=== PATIENT | male | born 1945 | race African-American/Black ===

== ENCOUNTER 2022-12-21 09:31 | Inpatient (IN) | payer OTHER, MEDICAID ==
[2022-12-21] VITALS (45 sets, daily range): BP systolic 93–128; BP diastolic 53–79; PULSE 72–120; RESP 11–42; TEMP 98.1–99.1; O2SAT 86–100
[~2022-12-21] VITALS: Ht 172.7 cm; Wt 97.1 kg
[~2022-12-21 09:31] MED LIST: AMLO1TAB23 PO; CALC0.25 PO; CALC500C65 PO; CEPH-510 PO; CLON0.2T PO; ERGO1CAP23 PO; GUAIFENESIN; LANC-347 XX; LEVO175C2 PO; LISI40TA; METO-289 PO; PHEN100C PO; POTA-211 PO; SIMV20TA20; TRIA25CA PO
[2022-12-21] MEDS ORDERED: ALBUTEROL SULF 2.5 MG/0.5ML(0.5%) NEB SOLN NEB ONE (10:00)
[2022-12-21 10:39] LABS: Basophils # (auto) 0 10 ^3/uL (0-0.2); Basophils % (auto) 0.2 % (0.0-2.0); Eosinophils # (auto) 0 10 ^3/uL (0-0.8); Hemoglobin 12.2 g/dL (13.5-17.5); Lymphocytes # (auto) 0.4 10 ^3/uL (0.4-5.4); Lymphocytes % (auto) 3.1 % (10.0-50.0); Mean Corpuscular Hemoglobin 31.8 pg (28.0-32.0); Mean Corpuscular Hgb Conc. 32.9 g/dL (32.0-36.0); Mean Corpuscular Volume 96.7 fL (80.0-100.0); Monocytes # (auto) 0.4 10 ^3/uL (0-1.3); Monocytes % (auto) 3.2 % (0.0-12.0); Neutrophils # (auto) 11.3 10 ^3/uL (1.6-8.6); Neutrophils % (auto) 93.5 % (37.0-80.0); Red Blood Cells 3.83 10^6/uL (4.5-5.90); Red Cell Distribution Width 13.7 % (11.8-14.3)
[2022-12-21] MEDS ORDERED: MIDAZOLAM DRIP 50 mg/50mL 50 ML IV ONE (10:40)
[2022-12-21] MEDS ORDERED: SUCCINYLCHOLINE CHLORIDE 20 MG/ML 10ML VIAL IV ONE (10:45)
[2022-12-21] MEDS: MIDAZOLAM DRIP 50 mg/50mL 50 ML IV SCH ×4 (10:45→23:47)
[2022-12-21] MEDS ORDERED: MIDAZOLAM DRIP 50 mg/50mL 50 ML IV SCH (10:45)
[2022-12-21] MEDS ORDERED: ETOMIDATE (2MG/ML) 20ML VIAL IV ONE (10:45)
[2022-12-21 10:50] LABS: Albumin 2.8 g/dL (3.4-5.0); Calcium 6.3 mg/dL (8.5-10.1)
[2022-12-21 10:54] LABS: BUN/Creatinine Ratio 22.1 (10.0-20.0); Bilirubin, Total 0.7 mg/dL (0.2-1.0); Total Protein 7.8 g/dL (6.4-8.2)
[2022-12-21] MEDS: NOREPINEPHRINE 8 MG/250ML KIT 250 ML IV SCH (11:45)
[2022-12-21] MEDS ORDERED: SODIUM CHLORIDE 0.9% 2,100 ML IV ONE (11:45)
[2022-12-21] MEDS ORDERED: DexAMETHasone INJECTION 10 MG in SODIUM CHL 3% 500 ML IV SCH (12:00)
[2022-12-21 12:08] LABS: Urine Amorphous Crystal FEW /hpf (None Seen); Urine Bacteria NONE SEEN /hpf (None Seen); Urine Blood 1+ /uL (Negative); Urine WBC 3 /hpf (0 - 3)
[2022-12-21 12:20] LABS: INR 1.14 (0.9-1.15); Partial Thromboplastin Time 31.3 SEC (24.5-34.5)
[2022-12-21] MEDS ORDERED: VANCOMYCIN PER PHARMACY 0 MG IV SCH (12:45)
[2022-12-21] MEDS ORDERED: DexAMETHasone SOD PHOS 10MG/1ML VIAL INJ IV ONE (12:45)
[2022-12-21] MEDS ORDERED: VANCOMYCIN 1GM/250ML 250 ML IV ONE (12:45)
[2022-12-21] MEDS ORDERED: NITROGLYCERIN 0.4 MG SL TAB SL PRN (13:30)
[2022-12-21] MEDS ORDERED: MORPHINE SULFATE INJ 2 MG/ml SYRG IV PRN (13:30)
[2022-12-21] MEDS ORDERED: ACETAMINOPHEN 650 MG RECT SUPP PR PRN (14:00)
[2022-12-21] MEDS ORDERED: DEXTROSE (50%) 50ML SYRG IV PRN (14:00)
[2022-12-21] MEDS ORDERED: ACETAMINOPHEN 650 MG RECT SUPP PR ONE ×2 (14:00→14:15)
[2022-12-21] MEDS ORDERED: PIPERACILLIN-TAZOB 3.375GM 100 ML IV SCH (14:00)
[2022-12-21] MEDS ORDERED: POTASSIUM EFFERVESENT TAB 25 MEQ GT ONE (14:00)
[2022-12-21] MEDS: ACCU-CHEK COMFORT CURVE STRIP VI SCH ×2 (16:45→23:54)
[2022-12-21] MEDS: InsuLIN REG 1unit/0.01ml Soln (100units/ml) SC SCH ×2 (16:45→23:45)
[2022-12-21 16:56] LABS: Magnesium 2.3 mg/dL (1.6-2.6)
[2022-12-21] MEDS: IPRATROPIUM BROM 0.5 MG/2.5ML INH SOL NEB SCH (18:12)
[2022-12-21] MEDS: ALBUTEROL SULF 2.5 MG/0.5ML(0.5%) NEB SOLN NEB SCH (18:12)
[2022-12-21] MEDS ORDERED: LIDOCAINE 1% (LOCAL ANESTH.) PF 5ml SDV ID ONE (18:30)
[2022-12-21] MEDS ORDERED: SPIR25TA8 PO (18:56)
[2022-12-21] MEDS ORDERED: KEP500T PO (18:56)
[2022-12-21] MEDS ORDERED: HYDR-4296 PO (18:56)
[2022-12-21] MEDS ORDERED: NIFE1TAB30 PO (18:56)
[2022-12-21] MEDS ORDERED: ASPI-543 PO (18:56)
[2022-12-21] MEDS ORDERED: VANCOMYCIN 750mg/250ml 250 ML IV ONE ×2 (19:00→20:00)
[2022-12-21] MEDS: PIPERACILLIN-TAZOB 3.375GM 100 ML IV SCH (21:36)
[2022-12-21] MEDS: ATORVASTATIN 20 MG TAB NG SCH (21:36)
[2022-12-21] MEDS: SODIUM CHLOR 0.9% PF (SALINE LOCK) 10ML VIAL/SYR IV SCH (21:37)
[2022-12-21] MEDS ORDERED: VANCOMYCIN 1GM/250ML 250 ML IV SCH (22:00)
[2022-12-21] MEDS ORDERED: cloNIDine HCL 0.1 MG TAB PO SCH (22:00)
[2022-12-21] MEDS ORDERED: METOPROLOL SUCCINATE XL 50 MG TAB PO SCH (22:00)
[2022-12-21] MEDS ORDERED: PHENYTOIN SODIUM 100 MG CAP PO SCH (22:00)
[2022-12-21] MEDS ORDERED: levETIRAcetam 500 MG/5ML INJ IV ONE (23:29)
[2022-12-22] VITALS (108 sets, daily range): BP systolic 84–154; BP diastolic 50–90; PULSE 75–107; RESP 11–22; TEMP 97.3–99.7; O2SAT 95–100
[2022-12-22] MEDS: IPRATROPIUM BROM 0.5 MG/2.5ML INH SOL NEB SCH ×4 (00:04→18:19)
[2022-12-22] MEDS: ALBUTEROL SULF 2.5 MG/0.5ML(0.5%) NEB SOLN NEB SCH ×4 (00:04→18:19)
[2022-12-22] MEDS: MIDAZOLAM DRIP 50 mg/50mL 50 ML IV SCH ×5 (03:21→23:36)
[2022-12-22 04:37] LABS: Basophils # (auto) 0 10 ^3/uL (0-0.2); Basophils % (auto) 0.3 % (0.0-2.0); Eosinophils # (auto) 0.2 10 ^3/uL (0-0.8); Eosinophils % (auto) 1.2 % (0.0-7.0); Hematocrit 30.7 % (41.0-53.0); Hemoglobin 10.1 g/dL (13.5-17.5); Lymphocytes # (auto) 1.2 10 ^3/uL (0.4-5.4); Lymphocytes % (auto) 9.8 % (10.0-50.0); Mean Corpuscular Hgb Conc. 33.1 g/dL (32.0-36.0); Mean Corpuscular Volume 96.8 fL (80.0-100.0); Monocytes # (auto) 1.1 10 ^3/uL (0-1.3); Monocytes % (auto) 8.7 % (0.0-12.0); Neutrophils # (auto) 10.1 10 ^3/uL (1.6-8.6); Red Blood Cells 3.17 10^6/uL (4.5-5.90); Red Cell Distribution Width 13.6 % (11.8-14.3); White Blood Cell 12.6 10^3/uL (4.4-10.8)
[2022-12-22 05:03] LABS: Albumin 2.3 g/dL (3.4-5.0)
[2022-12-22 05:09] LABS: BUN/Creatinine Ratio 23.6 (10.0-20.0); Bilirubin, Total 1.2 mg/dL (0.2-1.0); Total Protein 6.1 g/dL (6.4-8.2)
[2022-12-22 05:18] LABS: Calcium 5.7 mg/dL (8.5-10.1); Potassium 2.4 mmol/L (3.5-5.1)
[2022-12-22] MEDS: ACCU-CHEK COMFORT CURVE STRIP VI SCH ×4 (05:31→23:37)
[2022-12-22] MEDS: PIPERACILLIN-TAZOB 3.375GM 100 ML IV SCH (05:31)
[2022-12-22] MEDS: InsuLIN REG 1unit/0.01ml Soln (100units/ml) SC SCH ×4 (05:35→23:37)
[2022-12-22] MEDS: POTASSIUM CHL 20MEQ/100ML 100 ML IV SCH ×3 (06:30→10:38)
[2022-12-22] MEDS: LEVOTHYROXINE SODIUM 50 MCG TAB PO SCH (06:30)
[2022-12-22] MEDS: CALCIUM GLUC 1,000mg/50ml-NS 50 ML IV SCH ×2 (06:30→06:59)
[2022-12-22] MEDS: PANTOPRAZOLE 40 MG/10 ML VIAL INJ IV SCH (09:52)
[2022-12-22] MEDS: ENOXAPARIN SOD 40 MG/0.4 ML SYRINGE SC SCH (09:52)
[2022-12-22] MEDS: ASPirin 81 mg TAB PO SCH (09:53)
[2022-12-22] MEDS: SODIUM CHLOR 0.9% PF (SALINE LOCK) 10ML VIAL/SYR IV SCH ×2 (09:53→22:10)
[2022-12-22] MEDS ORDERED: amLODIPine BESYLATE 5 MG TAB PO SCH (10:00)
[2022-12-22] MEDS ORDERED: HYDROCHLOROTHIAZIDE PO SCH (10:00)
[2022-12-22] MEDS ORDERED: POTASSIUM CHL 10 Meq TABLET PO SCH (10:00)
[2022-12-22] MEDS ORDERED: TRIAMTERENE PO SCH (10:00)
[2022-12-22] MEDS ORDERED: [UNRECOGNIZED DRUG - OTHER] PO SCH (10:00)
[2022-12-22] MEDS: PHENYTOIN 100 MG/4 ML SUSP GT SCH ×2 (10:15→22:09)
[2022-12-22] MEDS: CALCITRIOL 0.25 MCG CAP PO SCH (10:38)
[2022-12-22] MEDS: NOREPINEPHRINE 8 MG/250ML KIT 250 ML IV SCH (11:45)
[2022-12-22] MEDS ORDERED: POTASSIUM EFFERVESENT TAB 25 MEQ PO ONE (12:00)
[2022-12-22] MEDS ORDERED: SODIUM CHLORIDE 0.9% 1,000 ML IV SCH (12:00)
[2022-12-22] MEDS ORDERED: POTASSIUM EFFERVESENT TAB 25 MEQ GT ONE (12:15)
[2022-12-22] MEDS: SODIUM CHLORIDE 0.9% 1,000 ML IV SCH (12:23)
[2022-12-22] MEDS: CEFEPIME 2GM/50ML NS 50 ML IV SCH ×2 (14:54→22:09)
[2022-12-22] MEDS: ATORVASTATIN 20 MG TAB NG SCH (22:09)
[2022-12-23] VITALS (102 sets, daily range): BP systolic 105–166; BP diastolic 57–99; PULSE 80–119; RESP 11–36; TEMP 97.9–101.5; O2SAT 90–100
[2022-12-23 04:52] LABS: Basophils # (auto) 0 10 ^3/uL (0-0.2); Basophils % (auto) 0.3 % (0.0-2.0); Eosinophils # (auto) 0.3 10 ^3/uL (0-0.8); Eosinophils % (auto) 2.6 % (0.0-7.0); Hematocrit 32.1 % (41.0-53.0); Hemoglobin 10.7 g/dL (13.5-17.5); Lymphocytes # (auto) 0.6 10 ^3/uL (0.4-5.4); Lymphocytes % (auto) 5.9 % (10.0-50.0); Mean Corpuscular Hemoglobin 32.4 pg (28.0-32.0); Mean Corpuscular Hgb Conc. 33.2 g/dL (32.0-36.0); Mean Corpuscular Volume 97.4 fL (80.0-100.0); Monocytes # (auto) 0.7 10 ^3/uL (0-1.3); Monocytes % (auto) 7.3 % (0.0-12.0); Neutrophils # (auto) 8.4 10 ^3/uL (1.6-8.6); Neutrophils % (auto) 83.9 % (37.0-80.0); Nucleated Red Blood Cells % 0.1 %; Red Blood Cells 3.29 10^6/uL (4.5-5.90); Red Cell Distribution Width 13.6 % (11.8-14.3)
[2022-12-23 05:27] LABS: Potassium 3.8 mmol/L (3.5-5.1)
[2022-12-23] MEDS: InsuLIN REG 1unit/0.01ml Soln (100units/ml) SC SCH ×4 (06:00→23:51)
[2022-12-23] MEDS: ALBUTEROL SULF 2.5 MG/0.5ML(0.5%) NEB SOLN NEB SCH ×4 (06:02→18:29)
[2022-12-23] MEDS: IPRATROPIUM BROM 0.5 MG/2.5ML INH SOL NEB SCH ×4 (06:02→18:29)
[2022-12-23] MEDS: MIDAZOLAM DRIP 50 mg/50mL 50 ML IV SCH (06:28)
[2022-12-23] MEDS: ACCU-CHEK COMFORT CURVE STRIP VI SCH ×4 (06:29→23:51)
[2022-12-23] MEDS: SODIUM CHLORIDE 0.9% 1,000 ML IV SCH (06:29)
[2022-12-23] MEDS: LEVOTHYROXINE SODIUM 50 MCG TAB PO SCH (06:29)
[2022-12-23] MEDS ORDERED: CALCIUM GLUC 1,000mg/50ml-NS 50 ML IV ONE (07:00)
[2022-12-23] MEDS: PANTOPRAZOLE 40 MG/10 ML VIAL INJ IV SCH (10:09)
[2022-12-23] MEDS: CEFEPIME 2GM/50ML NS 50 ML IV SCH ×2 (10:09→21:43)
[2022-12-23] MEDS: ASPirin 81 mg TAB PO SCH (10:09)
[2022-12-23] MEDS: CALCITRIOL 0.25 MCG CAP PO SCH (10:09)
[2022-12-23] MEDS: PHENYTOIN 100 MG/4 ML SUSP GT SCH ×2 (10:09→21:43)
[2022-12-23] MEDS: ENOXAPARIN SOD 40 MG/0.4 ML SYRINGE SC SCH (10:10)
[2022-12-23] MEDS: SODIUM CHLOR 0.9% PF (SALINE LOCK) 10ML VIAL/SYR IV SCH ×2 (10:10→21:44)
[2022-12-23] MEDS ORDERED: MIDAZOLAM DRIP 50 mg/50mL 50 ML IV SCH (10:15)
[2022-12-23] MEDS: NOREPINEPHRINE 8 MG/250ML KIT 250 ML IV SCH (11:45)
[2022-12-23] MEDS ORDERED: FUROSEMIDE 40 MG/4 ML VIAL ONE (13:21)
[2022-12-23] MEDS ORDERED: FUROSEMIDE 40 MG/4 ML VIAL IV ONE (13:30)
[2022-12-23] MEDS: VANCOMYCIN 1GM/250ML 250 ML IV SCH (14:52)
[2022-12-23] MEDS: ATORVASTATIN 20 MG TAB NG SCH (21:42)
[2022-12-24] VITALS (103 sets, daily range): BP systolic 101–148; BP diastolic 47–89; PULSE 76–107; RESP 8–26; TEMP 97.7–99.5; O2SAT 92–100
[2022-12-24] MEDS: IPRATROPIUM BROM 0.5 MG/2.5ML INH SOL NEB SCH ×4 (00:01→18:37)
[2022-12-24] MEDS: ALBUTEROL SULF 2.5 MG/0.5ML(0.5%) NEB SOLN NEB SCH ×4 (00:01→18:37)
[2022-12-24 04:28] LABS: Basophils # (auto) 0 10 ^3/uL (0-0.2); Basophils % (auto) 0.4 % (0.0-2.0); Eosinophils # (auto) 0.4 10 ^3/uL (0-0.8); Eosinophils % (auto) 4.5 % (0.0-7.0); Hematocrit 31.8 % (41.0-53.0); Hemoglobin 10.4 g/dL (13.5-17.5); Lymphocytes # (auto) 0.4 10 ^3/uL (0.4-5.4); Lymphocytes % (auto) 4.5 % (10.0-50.0); Mean Corpuscular Hemoglobin 32.2 pg (28.0-32.0); Mean Corpuscular Hgb Conc. 32.8 g/dL (32.0-36.0); Mean Corpuscular Volume 98.1 fL (80.0-100.0); Monocytes # (auto) 0.7 10 ^3/uL (0-1.3); Neutrophils % (auto) 82.6 % (37.0-80.0); Red Blood Cells 3.24 10^6/uL (4.5-5.90); Red Cell Distribution Width 13.5 % (11.8-14.3); White Blood Cell 8.5 10^3/uL (4.4-10.8)
[2022-12-24 04:47] LABS: Albumin 2.2 g/dL (3.4-5.0); Calcium 6.2 mg/dL (8.5-10.1); Potassium 3.2 mmol/L (3.5-5.1)
[2022-12-24 04:52] LABS: BUN/Creatinine Ratio 20.5 (10.0-20.0); Bilirubin, Total 0.6 mg/dL (0.2-1.0); Total Protein 6.4 g/dL (6.4-8.2)
[2022-12-24] MEDS: VANCOMYCIN 1GM/250ML 250 ML IV SCH ×2 (05:51→23:44)
[2022-12-24] MEDS: InsuLIN REG 1unit/0.01ml Soln (100units/ml) SC SCH ×4 (06:00→23:44)
[2022-12-24] MEDS: LEVOTHYROXINE SODIUM 50 MCG TAB PO SCH (06:34)
[2022-12-24] MEDS: ACCU-CHEK COMFORT CURVE STRIP VI SCH ×4 (06:43→23:44)
[2022-12-24] MEDS ORDERED: POTASSIUM EFFERVESENT TAB 25 MEQ ONE (10:09)
[2022-12-24] MEDS ORDERED: POTASSIUM EFFERVESENT TAB 25 MEQ GT ONE (10:15)
[2022-12-24] MEDS ORDERED: FUROSEMIDE 20 MG/2 ML VIAL IV ONE (10:15)
[2022-12-24] MEDS: PHENYTOIN 100 MG/4 ML SUSP GT SCH ×2 (10:18→21:30)
[2022-12-24] MEDS: PANTOPRAZOLE 40 MG/10 ML VIAL INJ IV SCH (10:18)
[2022-12-24] MEDS: CEFEPIME 2GM/50ML NS 50 ML IV SCH ×2 (10:18→21:31)
[2022-12-24] MEDS: ENOXAPARIN SOD 40 MG/0.4 ML SYRINGE SC SCH (10:19)
[2022-12-24] MEDS: CALCITRIOL 0.25 MCG CAP PO SCH (10:20)
[2022-12-24] MEDS: SODIUM CHLOR 0.9% PF (SALINE LOCK) 10ML VIAL/SYR IV SCH ×2 (10:21→21:32)
[2022-12-24] MEDS: ASPirin 81 mg TAB PO SCH (10:28)
[2022-12-24] MEDS: ATORVASTATIN 20 MG TAB NG SCH (21:30)
[2022-12-25] VITALS (36 sets, daily range): BP systolic 110–144; BP diastolic 60–82; PULSE 78–99; RESP 12–28; TEMP 98.1–99.8; O2SAT 91–100
[2022-12-25] MEDS: ALBUTEROL SULF 2.5 MG/0.5ML(0.5%) NEB SOLN NEB SCH ×5 (01:06→23:53)
[2022-12-25] MEDS: IPRATROPIUM BROM 0.5 MG/2.5ML INH SOL NEB SCH ×5 (01:06→23:53)
[2022-12-25 04:19] LABS: Basophils # (auto) 0 10 ^3/uL (0-0.2); Basophils % (auto) 0.4 % (0.0-2.0); Eosinophils # (auto) 0.3 10 ^3/uL (0-0.8); Eosinophils % (auto) 4.1 % (0.0-7.0); Hematocrit 31.3 % (41.0-53.0); Hemoglobin 10.2 g/dL (13.5-17.5); Lymphocytes # (auto) 0.4 10 ^3/uL (0.4-5.4); Lymphocytes % (auto) 5.9 % (10.0-50.0); Mean Corpuscular Hemoglobin 31.4 pg (28.0-32.0); Mean Corpuscular Hgb Conc. 32.8 g/dL (32.0-36.0); Monocytes # (auto) 0.7 10 ^3/uL (0-1.3); Monocytes % (auto) 9.6 % (0.0-12.0); Neutrophils # (auto) 6.1 10 ^3/uL (1.6-8.6); Red Blood Cells 3.26 10^6/uL (4.5-5.90); Red Cell Distribution Width 13.1 % (11.8-14.3); White Blood Cell 7.7 10^3/uL (4.4-10.8)
[2022-12-25 04:30] LABS: Calcium 6.1 mg/dL (8.5-10.1); Potassium 3.1 mmol/L (3.5-5.1)
[2022-12-25 04:33] LABS: BUN/Creatinine Ratio 18.9 (10.0-20.0)
[2022-12-25] MEDS ORDERED: POTASSIUM CHL 20MEQ/100ML 100 ML IV ONE (04:45)
[2022-12-25] MEDS: InsuLIN REG 1unit/0.01ml Soln (100units/ml) SC SCH ×3 (05:30→18:46)
[2022-12-25] MEDS: ACCU-CHEK COMFORT CURVE STRIP VI SCH ×3 (05:30→18:45)
[2022-12-25] MEDS: LEVOTHYROXINE SODIUM 50 MCG TAB PO SCH (06:30)
[2022-12-25] MEDS ORDERED: HYDR25TA5 PO (10:43)
[2022-12-25] MEDS: ASPirin 81 mg TAB PO SCH (10:45)
[2022-12-25] MEDS: ENOXAPARIN SOD 40 MG/0.4 ML SYRINGE SC SCH (10:46)
[2022-12-25] MEDS: CALCITRIOL 0.25 MCG CAP PO SCH (10:46)
[2022-12-25] MEDS: PHENYTOIN 100 MG/4 ML SUSP GT SCH (10:46)
[2022-12-25] MEDS: CEFEPIME 2GM/50ML NS 50 ML IV SCH ×2 (10:47→22:52)
[2022-12-25] MEDS: SODIUM CHLOR 0.9% PF (SALINE LOCK) 10ML VIAL/SYR IV SCH ×2 (10:47→22:06)
[2022-12-25] MEDS ORDERED: POTASSIUM CHLORIDE 40 MEQ, LIDOCAINE 1% (LOCAL ANESTH.) 4 ML in SODIUM CHL 0.9% 250 ML IV ONE (11:45)
[2022-12-25] MEDS ORDERED: POTASSIUM EFFERVESENT TAB 25 MEQ PO ONE (11:45)
[2022-12-25] MEDS: ATORVASTATIN 20 MG TAB NG SCH (22:52)
[2022-12-25] MEDS: PHENYTOIN 100 MG/4 ML SUSP PO SCH (23:04)
[2022-12-26] VITALS (11 sets, daily range): BP systolic 113–136; BP diastolic 67–82; PULSE 74–98; RESP 18–19; TEMP 98.2–99.1; O2SAT 96–100
[2022-12-26] MEDS: ACCU-CHEK COMFORT CURVE STRIP VI SCH ×5 (00:08→23:12)
[2022-12-26] MEDS: InsuLIN REG 1unit/0.01ml Soln (100units/ml) SC SCH ×5 (06:00→23:14)
[2022-12-26] MEDS: LEVOTHYROXINE SODIUM 50 MCG TAB PO SCH (06:00)
[2022-12-26] MEDS: ALBUTEROL SULF 2.5 MG/0.5ML(0.5%) NEB SOLN NEB SCH ×4 (06:54→18:00)
[2022-12-26] MEDS: IPRATROPIUM BROM 0.5 MG/2.5ML INH SOL NEB SCH ×4 (06:54→18:00)
[2022-12-26] MEDS: PHENYTOIN 100 MG/4 ML SUSP PO SCH ×2 (09:32→21:12)
[2022-12-26] MEDS: CALCITRIOL 0.25 MCG CAP PO SCH (09:32)
[2022-12-26] MEDS: CEFEPIME 2GM/50ML NS 50 ML IV SCH ×2 (09:32→21:11)
[2022-12-26] MEDS: SODIUM CHLOR 0.9% PF (SALINE LOCK) 10ML VIAL/SYR IV SCH ×2 (09:33→21:11)
[2022-12-26] MEDS: ENOXAPARIN SOD 40 MG/0.4 ML SYRINGE SC SCH (09:33)
[2022-12-26] MEDS: ASPirin 81 mg TAB PO SCH (09:33)
[2022-12-26 10:14] LABS: Basophils # (auto) 0 10 ^3/uL (0-0.2); Basophils % (auto) 0.5 % (0.0-2.0); Eosinophils # (auto) 0.3 10 ^3/uL (0-0.8); Eosinophils % (auto) 4.1 % (0.0-7.0); Hematocrit 29.9 % (41.0-53.0); Hemoglobin 9.9 g/dL (13.5-17.5); Lymphocytes # (auto) 0.6 10 ^3/uL (0.4-5.4); Lymphocytes % (auto) 7.8 % (10.0-50.0); Mean Corpuscular Hemoglobin 32.1 pg (28.0-32.0); Mean Corpuscular Hgb Conc. 33.1 g/dL (32.0-36.0); Mean Corpuscular Volume 97.2 fL (80.0-100.0); Monocytes # (auto) 0.7 10 ^3/uL (0-1.3); Monocytes % (auto) 9.5 % (0.0-12.0); Neutrophils # (auto) 5.5 10 ^3/uL (1.6-8.6); Neutrophils % (auto) 78.1 % (37.0-80.0); Red Blood Cells 3.08 10^6/uL (4.5-5.90); Red Cell Distribution Width 13.4 % (11.8-14.3); White Blood Cell 7.1 10^3/uL (4.4-10.8)
[2022-12-26] MEDS ORDERED: GABAPENTIN 300 MG CAP PO ONE (15:15)
[2022-12-26 15:51] LABS: Potassium 3.5 mmol/L (3.5-5.1)
[2022-12-26 15:55] LABS: BUN/Creatinine Ratio 14.9 (10.0-20.0); Magnesium 2.2 mg/dL (1.6-2.6); Phosphorus 2.9 mg/dL (2.5-4.90)
[2022-12-26 16:18] LABS: Calcium 5.8 mg/dL (8.5-10.1)
[2022-12-26] MEDS ORDERED: CALCIUM CHL 100MG/ML 500 MG in D5W 5% 100 ML IV ONE (17:45)
[2022-12-26] MEDS: ATORVASTATIN 20 MG TAB NG SCH (21:12)
[2022-12-26] MEDS: GABAPENTIN 300 MG CAP PO SCH (21:13)
[2022-12-26] MEDS: levETIRAcetam 500 MG TAB PO SCH (21:13)
[2022-12-27] VITALS (15 sets, daily range): BP systolic 101–131; BP diastolic 53–86; PULSE 69–92; RESP 14–20; TEMP 97.6–98.3; O2SAT 95–100
[2022-12-27] MEDS: ALBUTEROL SULF 2.5 MG/0.5ML(0.5%) NEB SOLN NEB SCH ×4 (04:51→18:58)
[2022-12-27] MEDS: IPRATROPIUM BROM 0.5 MG/2.5ML INH SOL NEB SCH ×4 (04:52→18:58)
[2022-12-27] MEDS: ACCU-CHEK COMFORT CURVE STRIP VI SCH ×4 (05:53→23:22)
[2022-12-27] MEDS: InsuLIN REG 1unit/0.01ml Soln (100units/ml) SC SCH ×4 (05:55→23:22)
[2022-12-27] MEDS: LEVOTHYROXINE SODIUM 50 MCG TAB PO SCH (06:00)
[2022-12-27] MEDS: PHENYTOIN 100 MG/4 ML SUSP PO SCH ×2 (10:20→22:03)
[2022-12-27] MEDS: levETIRAcetam 500 MG TAB PO SCH ×2 (10:21→22:03)
[2022-12-27] MEDS: CALCITRIOL 0.25 MCG CAP PO SCH (10:21)
[2022-12-27] MEDS: CEFEPIME 2GM/50ML NS 50 ML IV SCH ×2 (10:21→22:04)
[2022-12-27] MEDS: ENOXAPARIN SOD 40 MG/0.4 ML SYRINGE SC SCH (10:21)
[2022-12-27] MEDS: ASPirin 81 mg TAB PO SCH (10:22)
[2022-12-27] MEDS: GABAPENTIN 300 MG CAP PO SCH ×2 (10:22→22:03)
[2022-12-27] MEDS: SODIUM CHLOR 0.9% PF (SALINE LOCK) 10ML VIAL/SYR IV SCH ×2 (10:23→22:04)
[2022-12-27] MEDS ORDERED: VANCOMYCIN 500 MG in D5W 5% 100 ML IV ONE (14:00)
[2022-12-27 16:16] LABS: Urine Bacteria FEW /hpf (None Seen); Urine Blood 1+ /uL (Negative); Urine Mucus FEW (None Seen); Urine Specific Gravity 1.009 (1.001-1.035); Urine WBC 10 /hpf (0 - 3)
[2022-12-27] MEDS: ATORVASTATIN 20 MG TAB NG SCH (22:03)
[2022-12-28] VITALS (14 sets, daily range): BP systolic 114–126; BP diastolic 60–72; PULSE 74–105; RESP 14–20; TEMP 97.5–99.4; O2SAT 96–100
[2022-12-28] MEDS: InsuLIN REG 1unit/0.01ml Soln (100units/ml) SC SCH ×4 (05:08→23:39)
[2022-12-28] MEDS: ACCU-CHEK COMFORT CURVE STRIP VI SCH ×4 (05:08→23:37)
[2022-12-28 05:49] LABS: Basophils # (auto) 0.1 10 ^3/uL (0-0.2); Basophils % (auto) 0.7 % (0.0-2.0); Eosinophils # (auto) 0.4 10 ^3/uL (0-0.8); Eosinophils % (auto) 4.3 % (0.0-7.0); Hematocrit 31.9 % (41.0-53.0); Hemoglobin 10.2 g/dL (13.5-17.5); Lymphocytes # (auto) 1.7 10 ^3/uL (0.4-5.4); Lymphocytes % (auto) 20.2 % (10.0-50.0); Mean Corpuscular Hemoglobin 32.1 pg (28.0-32.0); Mean Corpuscular Hgb Conc. 32.1 g/dL (32.0-36.0); Mean Corpuscular Volume 99.9 fL (80.0-100.0); Monocytes # (auto) 1.4 10 ^3/uL (0-1.3); Monocytes % (auto) 17.1 % (0.0-12.0); Neutrophils # (auto) 4.8 10 ^3/uL (1.6-8.6); Neutrophils % (auto) 57.7 % (37.0-80.0); Nucleated Red Blood Cells % 0.1 %; Red Blood Cells 3.19 10^6/uL (4.5-5.90); Red Cell Distribution Width 13.5 % (11.8-14.3); White Blood Cell 8.4 10^3/uL (4.4-10.8)
[2022-12-28 05:50] LABS: Albumin 2.2 g/dL (3.4-5.0); Magnesium 2.5 mg/dL (1.6-2.6); Potassium 3.7 mmol/L (3.5-5.1)
[2022-12-28 05:54] LABS: Calcium 5.7 mg/dL (8.5-10.1)
[2022-12-28 05:55] LABS: Bilirubin, Total 0.3 mg/dL (0.2-1.0); Total Protein 6.4 g/dL (6.4-8.2)
[2022-12-28] MEDS: LEVOTHYROXINE SODIUM 50 MCG TAB PO SCH (06:19)
[2022-12-28] MEDS: IPRATROPIUM BROM 0.5 MG/2.5ML INH SOL NEB SCH ×4 (06:43→18:06)
[2022-12-28] MEDS: ALBUTEROL SULF 2.5 MG/0.5ML(0.5%) NEB SOLN NEB SCH ×4 (06:43→18:06)
[2022-12-28] MEDS: SODIUM BICARBONATE 50ML VIAL 75 ML in D5W 5% 1,000 ML IV SCH ×2 (09:40→18:51)
[2022-12-28] MEDS: CALCIUM GLUC 1,000mg/50ml-NS 50 ML IV SCH (09:40)
[2022-12-28] MEDS: CEFEPIME 2GM/50ML NS 50 ML IV SCH ×2 (11:28→21:38)
[2022-12-28] MEDS: ASPirin 81 mg TAB PO SCH (11:29)
[2022-12-28] MEDS: ENOXAPARIN SOD 40 MG/0.4 ML SYRINGE SC SCH (11:29)
[2022-12-28] MEDS: CALCITRIOL 0.25 MCG CAP PO SCH (11:29)
[2022-12-28] MEDS: PHENYTOIN 100 MG/4 ML SUSP PO SCH ×2 (11:29→21:37)
[2022-12-28] MEDS: levETIRAcetam 500 MG TAB PO SCH ×2 (11:30→21:38)
[2022-12-28] MEDS: SODIUM CHLOR 0.9% PF (SALINE LOCK) 10ML VIAL/SYR IV SCH ×2 (11:30→21:38)
[2022-12-28] MEDS: GABAPENTIN 300 MG CAP PO SCH ×2 (11:30→21:38)
[2022-12-28] MEDS: ATORVASTATIN 20 MG TAB NG SCH (21:38)
[2022-12-28] MEDS ORDERED: LORazepam 2MG/ML-1ML VIAL IV PRN (23:00)
[2022-12-29] VITALS (15 sets, daily range): BP systolic 107–136; BP diastolic 53–74; PULSE 83–97; RESP 16–97; TEMP 98.1–99; O2SAT 93–100
[2022-12-29] MEDS: ALBUTEROL SULF 2.5 MG/0.5ML(0.5%) NEB SOLN NEB SCH ×4 (00:53→18:18)
[2022-12-29] MEDS: IPRATROPIUM BROM 0.5 MG/2.5ML INH SOL NEB SCH ×4 (00:53→18:18)
[2022-12-29] MEDS ORDERED: LORazepam 2MG/ML-1ML VIAL IV PRN (02:15)
[2022-12-29] MEDS: SODIUM BICARBONATE 50ML VIAL 75 ML in D5W 5% 1,000 ML IV SCH (05:15)
[2022-12-29 05:38] LABS: Basophils # (auto) 0.1 10 ^3/uL (0-0.2); Basophils % (auto) 0.9 % (0.0-2.0); Eosinophils # (auto) 0.3 10 ^3/uL (0-0.8); Eosinophils % (auto) 3.5 % (0.0-7.0); Hematocrit 29.9 % (41.0-53.0); Hemoglobin 9.9 g/dL (13.5-17.5); Lymphocytes # (auto) 1.8 10 ^3/uL (0.4-5.4); Lymphocytes % (auto) 18.7 % (10.0-50.0); Mean Corpuscular Hemoglobin 32.7 pg (28.0-32.0); Mean Corpuscular Hgb Conc. 33.2 g/dL (32.0-36.0); Mean Corpuscular Volume 98.5 fL (80.0-100.0); Monocytes # (auto) 1.2 10 ^3/uL (0-1.3); Monocytes % (auto) 13.2 % (0.0-12.0); Neutrophils % (auto) 63.7 % (37.0-80.0); Nucleated Red Blood Cells % 0.1 %; Red Blood Cells 3.04 10^6/uL (4.5-5.90); Red Cell Distribution Width 13.6 % (11.8-14.3); White Blood Cell 9.4 10^3/uL (4.4-10.8)
[2022-12-29] MEDS: ACCU-CHEK COMFORT CURVE STRIP VI SCH ×3 (05:40→17:53)
[2022-12-29] MEDS: InsuLIN REG 1unit/0.01ml Soln (100units/ml) SC SCH ×3 (05:42→17:55)
[2022-12-29 05:58] LABS: Albumin 2.3 g/dL (3.4-5.0); Potassium 3.7 mmol/L (3.5-5.1)
[2022-12-29 06:01] LABS: BUN/Creatinine Ratio 12.6 (10.0-20.0); Bilirubin, Total 0.3 mg/dL (0.2-1.0); Total Protein 5.8 g/dL (6.4-8.2)
[2022-12-29] MEDS: LEVOTHYROXINE SODIUM 50 MCG TAB PO SCH (06:19)
[2022-12-29 06:25] LABS: Calcium 5.7 mg/dL (8.5-10.1)
[2022-12-29] MEDS: CALCITRIOL 0.25 MCG CAP PO SCH (09:26)
[2022-12-29] MEDS: GABAPENTIN 300 MG CAP PO SCH ×2 (09:27→21:52)
[2022-12-29] MEDS: ASPirin 81 mg TAB PO SCH (09:27)
[2022-12-29] MEDS: PHENYTOIN 100 MG/4 ML SUSP PO SCH ×2 (09:27→21:52)
[2022-12-29] MEDS: levETIRAcetam 500 MG TAB PO SCH ×2 (09:27→21:52)
[2022-12-29] MEDS: CEFEPIME 2GM/50ML NS 50 ML IV SCH ×2 (09:29→21:53)
[2022-12-29] MEDS: ENOXAPARIN SOD 40 MG/0.4 ML SYRINGE SC SCH (09:29)
[2022-12-29] MEDS ORDERED: CALCIUM CARB 500 MG CHEW TAB PO ONE (10:15)
[2022-12-29] MEDS: SODIUM CHLOR 0.9% PF (SALINE LOCK) 10ML VIAL/SYR IV SCH ×2 (12:09→21:53)
[2022-12-29] MEDS: CALCIUM CARB 500 MG CHEW TAB PO SCH (21:52)
[2022-12-29] MEDS: ATORVASTATIN 20 MG TAB NG SCH (21:52)
[2022-12-30] VITALS (12 sets, daily range): BP systolic 117–144; BP diastolic 63–74; PULSE 80–98; RESP 15–100; TEMP 98.6–99.8; O2SAT 93–100
[2022-12-30] MEDS: IPRATROPIUM BROM 0.5 MG/2.5ML INH SOL NEB SCH ×3 (00:01→11:30)
[2022-12-30] MEDS: ALBUTEROL SULF 2.5 MG/0.5ML(0.5%) NEB SOLN NEB SCH ×3 (00:01→11:30)
[2022-12-30] MEDS: ACCU-CHEK COMFORT CURVE STRIP VI SCH ×4 (01:22→18:00)
[2022-12-30] MEDS: InsuLIN REG 1unit/0.01ml Soln (100units/ml) SC SCH ×4 (01:24→18:00)
[2022-12-30] MEDS: LEVOTHYROXINE SODIUM 50 MCG TAB PO SCH (06:57)
[2022-12-30 08:29] LABS: BUN/Creatinine Ratio 12.4 (10.0-20.0); Calcium 6.6 mg/dL (8.5-10.1); Magnesium 2.5 mg/dL (1.6-2.6); Potassium 3.3 mmol/L (3.5-5.1)
[2022-12-30] MEDS: PHENYTOIN 100 MG/4 ML SUSP PO SCH (10:00)
[2022-12-30] MEDS: SODIUM CHLOR 0.9% PF (SALINE LOCK) 10ML VIAL/SYR IV SCH (10:00)
[2022-12-30] MEDS: GABAPENTIN 300 MG CAP PO SCH (10:26)
[2022-12-30] MEDS: CALCITRIOL 0.25 MCG CAP PO SCH (10:26)
[2022-12-30] MEDS: CALCIUM CARB 500 MG CHEW TAB PO SCH (10:26)
[2022-12-30] MEDS: ASPirin 81 mg TAB PO SCH (10:26)
[2022-12-30] MEDS: CEFEPIME 2GM/50ML NS 50 ML IV SCH (10:27)
[2022-12-30] MEDS: levETIRAcetam 500 MG TAB PO SCH (10:27)
[2022-12-30] MEDS: ENOXAPARIN SOD 40 MG/0.4 ML SYRINGE SC SCH (10:27)
[2022-12-30] MEDS ORDERED: PHEN1CAP60 PO (12:31)
[2022-12-30] MEDS ORDERED: KEP500T PO (12:31)
[2022-12-30] MEDS ORDERED: DOXY-448 PO (12:31)
== END 2022-12-30 19:15 | disposition home health service (06) | DRG 871 ==
LOC: ER 09:31 → EDBD 09:31 → TELE 13:35 → ICU WEST 14:57 → TELE-CENTR 12-25 15:39 → CENTRAL 12-27 23:58 → TELE-CENTR 12-28 22:13
PROVIDERS: ADMIT Internal Medicine; ATTEND Internal Medicine
PROC: 02HV33Z Insertion of Infusion Device into Superior Vena Cava, Percutaneous Approach (ICD-10-PCS; principal; 2022-12-21)
PROC: B548ZZA Ultrasonography of Superior Vena Cava, Guidance (ICD-10-PCS; 2022-12-21)
PROC: 5A1945Z Respiratory Ventilation, 24-96 Consecutive Hours (ICD-10-PCS; 2022-12-21)
PROC: 0BH17EZ Insertion of Endotracheal Airway into Trachea, Via Natural or Artificial Opening (ICD-10-PCS; 2022-12-21)
DX: A41.9 Sepsis, unspecified organism (principal); E43 Unspecified severe protein-calorie malnutrition; N17.0 Acute kidney failure with tubular necrosis; I50.23 Acute on chronic systolic (congestive) heart failure; J96.20 Acute and chronic respiratory failure, unspecified whether with hypoxia or hypercapnia; J69.0 Pneumonitis due to inhalation of food and vomit; J98.11 Atelectasis; J44.1 Chronic obstructive pulmonary disease with (acute) exacerbation; I13.0 Hypertensive heart and chronic kidney disease with heart failure and stage 1 through stage 4 chronic kidney disease, or unspecified chronic kidney disease; J44.0 Chronic obstructive pulmonary disease with (acute) lower respiratory infection; G40.909 Epilepsy, unspecified, not intractable, without status epilepticus; E83.51 Hypocalcemia; E11.22 Type 2 diabetes mellitus with diabetic chronic kidney disease; E66.9 Obesity, unspecified; N18.9 Chronic kidney disease, unspecified; Z68.30 Body mass index [BMI] 30.0-30.9, adult; E78.5 Hyperlipidemia, unspecified; E89.0 Postprocedural hypothyroidism; F17.200 Nicotine dependence, unspecified, uncomplicated; I25.10 Atherosclerotic heart disease of native coronary artery without angina pectoris; R65.20 Severe sepsis without septic shock; Z74.01 Bed confinement status; Z79.82 Long term (current) use of aspirin; Z79.899 Other long term (current) drug therapy; Z82.0 Family history of epilepsy and other diseases of the nervous system; Z82.49 Family history of ischemic heart disease and other diseases of the circulatory system; Z83.3 Family history of diabetes mellitus; Z86.73 Personal history of transient ischemic attack (TIA), and cerebral infarction without residual deficits; Z99.81 Dependence on supplemental oxygen
CPT/HCPCS: 31500; 36415; 36556; 36569; 36600; 70450; 70551; 71045; 71250; 80048; 80053; 80061; 80185; 80202; 81001; 82040; 82140; 82553; 82805; 82962; 83036; 83605; 83735; 83880; 84075; 84100; 84132; 84443; 85025; 85610; 85730; 86850; 86900; 86901; 87040; 87070; 87077; 87081; 87086; 87186; 87205; 92610; 93005; 93306; 94003; 94640; 95819; 96365; 97110; 97163; 97530; C9113; G0378; J0330; J0692; J1100; J1815; J2001; J2250; J2543; J3480; J7060

== ENCOUNTER 2023-03-12 00:21 | Emergency (ER) | payer OTHER, MEDICAID ==
[~2023-03-12] VITALS: Ht 177.8 cm; Wt 86.4 kg
[~2023-03-12 00:21] MED LIST changes: -AMLO1TAB23 PO; +ASPI-543 PO; -CLON0.2T PO; +DOXY-448 PO; +HYDR-4296 PO; +HYDR25TA5 PO; +KEP500T PO; -METO-289 PO; +NIFE1TAB30 PO; -PHEN100C PO; +PHEN1CAP60 PO; -SIMV20TA20; +SPIR25TA8 PO; -TRIA25CA PO
[2023-03-12 01:00] VITALS: PULSE 113; RESP 20; O2SAT 92
[2023-03-12] MEDS ORDERED: levETIRAcetam 500 MG/5ML INJ IV ONE (02:08)
[2023-03-12] MEDS ORDERED: LORazepam 2MG/ML-1ML VIAL IV ONE ×2 (02:15→03:00)
[2023-03-12 03:24] LABS: Basophils # (auto) 0 10 ^3/uL (0-0.2); Basophils % (auto) 0.4 % (0.0-2.0); Eosinophils # (auto) 0.1 10 ^3/uL (0-0.8); Eosinophils % (auto) 1.5 % (0.0-7.0); Hematocrit 35.4 % (41.0-53.0); Hemoglobin 11.6 g/dL (13.5-17.5); Lymphocytes # (auto) 1.1 10 ^3/uL (0.4-5.4); Lymphocytes % (auto) 11.3 % (10.0-50.0); Mean Corpuscular Hgb Conc. 32.9 g/dL (32.0-36.0); Mean Corpuscular Volume 97.2 fL (80.0-100.0); Monocytes # (auto) 0.8 10 ^3/uL (0-1.3); Monocytes % (auto) 8.1 % (0.0-12.0); Neutrophils # (auto) 7.8 10 ^3/uL (1.6-8.6); Neutrophils % (auto) 78.7 % (37.0-80.0); Red Blood Cells 3.64 10^6/uL (4.5-5.90); Red Cell Distribution Width 13.2 % (11.8-14.3); White Blood Cell 9.9 10^3/uL (4.4-10.8)
[2023-03-12 03:30] VITALS: TEMP 98
[2023-03-12 03:38] LABS: Alanine Aminotransferase 21 U/L (7-40); Albumin 3.8 g/dL (3.2-4.8); Alkaline Phosphatase 102 U/L (46-116); Anion Gap 6 (5-15); Aspartate Aminotransferase 21 U/L (13-40); BUN/Creatinine Ratio 27.8 (10.0-20.0); Blood Urea Nitrogen 40 mg/dL (9-23); Calcium 7.1 mg/dL (8.7-10.4); Carbon Dioxide 32 mmol/L (20-30); Chloride 104 mmol/L (98-107); Glucose 178 mg/dL (74-106); Potassium 4.1 mmol/L (3.5-5.1); Sodium 142 mmol/L (136-145)
[2023-03-12 03:39] LABS: Bilirubin, Total 0.2 mg/dL (0.2-1.0)
[2023-03-12] MEDS ORDERED: SODIUM CHLORIDE 0.9% 1,000 ML IV ONE (04:45)
[2023-03-12 17:39] VITALS: BP 122/60; PULSE 80; RESP 18; O2SAT 97
== END 2023-03-12 17:46 | disposition home or self-care (01) ==
LOC: EDBD 00:21 → ER 00:26
DX: R56.9 Unspecified convulsions (principal); E86.0 Dehydration; J44.9 Chronic obstructive pulmonary disease, unspecified; I11.0 Hypertensive heart disease with heart failure; I50.9 Heart failure, unspecified; E11.9 Type 2 diabetes mellitus without complications; E78.5 Hyperlipidemia, unspecified; Z86.73 Personal history of transient ischemic attack (TIA), and cerebral infarction without residual deficits
CPT/HCPCS: 36415; 80053; 85025; 93005; 96361; 96365; 96375; 96376; 99285; J1953; J2060; J7030; J7060

== ENCOUNTER 2023-04-13 13:05 | Inpatient (IN) | payer OTHER, MEDICAID ==
[~2023-04-13] VITALS: Ht 172.7 cm; Wt 95.6 kg
[2023-04-13 14:32] LABS: Basophils # (auto) 0 10 ^3/uL (0-0.2); Basophils % (auto) 0.3 % (0.0-2.0); Eosinophils # (auto) 0.2 10 ^3/uL (0-0.8); Eosinophils % (auto) 1.7 % (0.0-7.0); Hematocrit 34.1 % (41.0-53.0); Hemoglobin 11.3 g/dL (13.5-17.5); Lymphocytes # (auto) 0.9 10 ^3/uL (0.4-5.4); Lymphocytes % (auto) 8.9 % (10.0-50.0); Mean Corpuscular Hemoglobin 32.8 pg (28.0-32.0); Mean Corpuscular Hgb Conc. 33.2 g/dL (32.0-36.0); Mean Corpuscular Volume 98.8 fL (80.0-100.0); Monocytes # (auto) 0.7 10 ^3/uL (0-1.3); Monocytes % (auto) 6.6 % (0.0-12.0); Neutrophils # (auto) 8.2 10 ^3/uL (1.6-8.6); Neutrophils % (auto) 82.5 % (37.0-80.0); Nucleated Red Blood Cells % 0.1 %; Red Blood Cells 3.45 10^6/uL (4.5-5.90); Red Cell Distribution Width 13.3 % (11.8-14.3); White Blood Cell 9.9 10^3/uL (4.4-10.8)
[2023-04-13 14:50] LABS: INR 1.04 (0.9-1.15); Partial Thromboplastin Time 29.7 SEC (24.5-34.5); Prothrombin Time 10.9 sec (9.3-11.8)
[2023-04-13 15:01] LABS: Alanine Aminotransferase 18 U/L (7-40); Albumin 3.8 g/dL (3.2-4.8); Alkaline Phosphatase 86 U/L (46-116); Aspartate Aminotransferase 22 U/L (13-40); BUN/Creatinine Ratio 26.2 (10.0-20.0); Bilirubin, Total 0.3 mg/dL (0.2-1.0); Blood Urea Nitrogen 38 mg/dL (9-23); Chloride 93 mmol/L (98-107); Glucose 164 mg/dL (74-106); Sodium 144 mmol/L (136-145)
[2023-04-13 15:02] LABS: Total Protein 6.9 g/dL (5.7-8.2)
[2023-04-13 15:19] LABS: Anion Gap 10.99999 (5-15)
[2023-04-13 15:20] LABS: Calcium 5.9 mg/dL (8.7-10.4); Carbon Dioxide > 40 mmol/L (20-30)
[2023-04-13] MEDS ORDERED: LORazepam 2MG/ML-1ML VIAL ONE ×2 (16:14→18:52)
[2023-04-13 16:15] VITALS: PULSE 109; RESP 13; O2SAT 96
[2023-04-13] MEDS ORDERED: LORazepam 2MG/ML-1ML VIAL IM ONE (17:00)
[2023-04-13] MEDS ORDERED: CALCIUM GLUC 1,000mg/50ml-NS 50 ML IV ONE (17:30)
[2023-04-13] MEDS ORDERED: PANTOPRAZOLE 40 MG/10 ML VIAL INJ IV ONE (18:45)
[2023-04-13] MEDS ORDERED: MORPHINE SULFATE INJ 2 MG/ml SYRG IV PRN (18:45)
[2023-04-13] MEDS ORDERED: SODIUM CHLORIDE 0.9% 1,000 ML IV ONE (18:45)
[2023-04-13] MEDS ORDERED: NITROGLYCERIN 0.4 MG SL TAB SL PRN (18:45)
[2023-04-13] MEDS: ERGOCALCIFEROL 50,000 UNIT(1.25MG) CAP PO SCH (19:00)
[2023-04-13] MEDS ORDERED: DEXTROSE (50%) 50ML SYRG IV PRN (19:00)
[2023-04-13] MEDS ORDERED: LORazepam 2MG/ML-1ML VIAL IV ONE ×2 (19:15→21:33)
[2023-04-13 19:53] LABS: Triglycerides 73 mg/dL (< 150)
[2023-04-13 19:54] LABS: LDL Cholesterol 83 mg/dL (< 100)
[2023-04-13 19:55] LABS: Cholesterol 141 mg/dL (< 200); HDL Cholesterol 43 mg/dL (40-59)
[2023-04-13] MEDS ORDERED: MAGNESIUM SULFATE 1GM/100ML 100 ML IV SCH (20:00)
[2023-04-13] MEDS: SODIUM CHLORIDE 0.9% 1,000 ML IV SCH (20:02)
[2023-04-13] MEDS ORDERED: levETIRAcetam 1000 mg/100ml 100 ML IV ONE ×3 (21:00→21:45)
[2023-04-13] MEDS: POTASSIUM CHL 20MEQ/100ML 100 ML IV SCH (21:11)
[2023-04-13] MEDS: InsuLIN REG 1unit/0.01ml Soln (100units/ml) SC SCH (22:00)
[2023-04-13] MEDS: CALCIUM CARB 500 MG CHEW TAB PO SCH (22:00)
[2023-04-13] MEDS: levETIRAcetam 500 MG TAB PO SCH (22:00)
[2023-04-13] MEDS ORDERED: PHENYTOIN SODIUM 100 MG CAP PO SCH (22:00)
[2023-04-13] MEDS ORDERED: levETIRAcetam 500 MG/5ML INJ IV ONE (22:01)
[2023-04-13] MEDS ORDERED: LORazepam 2MG/ML-1ML VIAL IV PRN (22:15)
[2023-04-13] MEDS: ACCU-CHEK COMFORT CURVE STRIP VI SCH (22:19)
[2023-04-14] VITALS (57 sets, daily range): BP systolic 77–161; BP diastolic 35–98; PULSE 66–127; RESP 14–18; TEMP 97.7–101.3; O2SAT 96–100
[2023-04-14] MEDS ORDERED: PHENobarbital SODIUM INJ 600 MG in SODIUM CHL 0.9% 100 ML IV ONE ×2
[2023-04-14] MEDS ORDERED: PHENobarbital SODIUM 130 MG/ML VL ONE (00:11)
[2023-04-14] MEDS ORDERED: ETOMIDATE (2MG/ML) 20ML VIAL IV ONE ×2 (00:19→00:21)
[2023-04-14] MEDS ORDERED: SUCCINYLCHOLINE CHLORIDE 20 MG/ML 10ML VIAL IV ONE ×2 (00:19→00:21)
[2023-04-14] MEDS ORDERED: MIDAZOLAM DRIP 50 mg/50mL 50 ML IV ONE (00:24)
[2023-04-14] MEDS ORDERED: NOREPINEPHRINE 8 MG/250ML KIT 250 ML IV ONE (00:51)
[2023-04-14] MEDS: NOREPINEPHRINE 8 MG/250ML KIT 250 ML IV SCH (01:00)
[2023-04-14 01:15] LABS: Urine Bacteria NONE SEEN /hpf (None Seen); Urine Blood Negative /uL (Negative); Urine Clarity Clear (Clear); Urine Color Yellow (Yellow); Urine Hyaline Cast FEW /lpf (0 - 2); Urine Protein, UAD TRACE (Negative); Urine Specific Gravity 1.015 (1.001-1.035); Urine Urobilinogen Normal (Negative); Urine WBC 1 /hpf (0 - 3)
[2023-04-14] MEDS: MIDAZOLAM DRIP 50 mg/50mL 50 ML IV SCH ×3 (01:15→23:46)
[2023-04-14 01:20] LABS: Amphetamine Screen, Urine Neg (NEGATIVE); Barbiturate Scree,Urine Neg (NEGATIVE); Benzodiazephine Screen, Urine Pos (NEGATIVE); Cocaine Screen, Urine Neg (NEGATIVE)
[2023-04-14 01:21] LABS: Opiate Scree,Urine Neg (NEGATIVE); Phencyclidine Screen, Urine Neg (NEGATIVE)
[2023-04-14] MEDS ORDERED: VASOPRESSIN 20 UNITS in SODIUM CHL 0.9% 99 ML IV SCH (01:30)
[2023-04-14 01:34] LABS: Cannabinoid Screen, Urine Neg (NEGATIVE)
[2023-04-14 03:26] LABS: Base Excess 11.3 mmol/L (-2.0-2.0)
[2023-04-14] MEDS: ACETAMINOPHEN 325 MG TAB PO PRN (03:34)
[2023-04-14] MEDS ORDERED: POTASSIUM CHL 20MEQ/100ML 100 ML IV ONE (04:17)
[2023-04-14] MEDS: POTASSIUM CHL 20MEQ/100ML 100 ML IV SCH ×3 (04:19→16:17)
[2023-04-14] MEDS: InsuLIN REG 1unit/0.01ml Soln (100units/ml) SC SCH ×4 (06:28→22:19)
[2023-04-14] MEDS: ACCU-CHEK COMFORT CURVE STRIP VI SCH ×4 (06:31→22:15)
[2023-04-14] MEDS: LEVOTHYROXINE SODIUM 100 MCG TAB PO SCH (06:31)
[2023-04-14 07:08] LABS: Basophils # (auto) 0.1 10 ^3/uL (0-0.2); Basophils % (auto) 0.5 % (0.0-2.0); Eosinophils # (auto) 0.3 10 ^3/uL (0-0.8); Eosinophils % (auto) 1.7 % (0.0-7.0); Hematocrit 34.3 % (41.0-53.0); Hemoglobin 11.4 g/dL (13.5-17.5); Lymphocytes % (auto) 6.5 % (10.0-50.0); Mean Corpuscular Hemoglobin 32.2 pg (28.0-32.0); Mean Corpuscular Hgb Conc. 33.2 g/dL (32.0-36.0); Mean Corpuscular Volume 97.2 fL (80.0-100.0); Monocytes # (auto) 0.8 10 ^3/uL (0-1.3); Monocytes % (auto) 5.6 % (0.0-12.0); Neutrophils # (auto) 12.7 10 ^3/uL (1.6-8.6); Neutrophils % (auto) 85.7 % (37.0-80.0); Red Blood Cells 3.53 10^6/uL (4.5-5.90); Red Cell Distribution Width 13.1 % (11.8-14.3); White Blood Cell 14.8 10^3/uL (4.4-10.8)
[2023-04-14 07:22] LABS: Alanine Aminotransferase 12 U/L (7-40); Albumin 3.7 g/dL (3.2-4.8); Alkaline Phosphatase 80 U/L (46-116); Anion Gap 9 (5-15); Aspartate Aminotransferase 21 U/L (13-40); BUN/Creatinine Ratio 23.4 (10.0-20.0); Bilirubin, Total 0.8 mg/dL (0.2-1.0); Blood Urea Nitrogen 34 mg/dL (9-23); Carbon Dioxide 37 mmol/L (20-30); Chloride 96 mmol/L (98-107); Glucose 121 mg/dL (74-106); Potassium 3.1 mmol/L (3.5-5.1); Sodium 142 mmol/L (136-145); Total Protein 7.1 g/dL (5.7-8.2)
[2023-04-14] MEDS: CALCIUM CARB 500 MG CHEW TAB PO SCH ×2 (08:00→18:00)
[2023-04-14 08:03] LABS: Base Excess 13.1 mmol/L (-2.0-2.0)
[2023-04-14] MEDS ORDERED: NIFEdipine ER 30 MG TAB PO SCH (10:00)
[2023-04-14] MEDS ORDERED: SPIRONOLACTONE 25 MG TAB PO SCH (10:00)
[2023-04-14] MEDS: levETIRAcetam 500 MG TAB PO SCH (10:00)
[2023-04-14] MEDS ORDERED: levETIRAcetam 500 mg/100ml 100 ML IV SCH (10:00)
[2023-04-14] MEDS: CALCITRIOL 0.25 MCG CAP PO SCH (10:00)
[2023-04-14] MEDS ORDERED: POTASSIUM CHL 10 Meq TABLET PO SCH (10:00)
[2023-04-14] MEDS: ASPirin-EC 81 mg tab PO SCH (11:53)
[2023-04-14] MEDS: ENOXAPARIN SOD 40 MG/0.4 ML SYRINGE SC SCH (11:53)
[2023-04-14] MEDS: PANTOPRAZOLE 40 MG/10 ML VIAL INJ IV SCH (11:54)
[2023-04-14] MEDS: CALCIUM GLUC 1,000mg/50ml-NS 50 ML IV SCH ×3 (12:47→16:01)
[2023-04-14] MEDS: SODIUM CHLORIDE 0.9% 1,000 ML IV SCH ×2 (13:40→22:08)
[2023-04-14] MEDS: PHENYTOIN SODIUM 50 MG/ML 2ML VIAL IV SCH ×3 (14:13→23:49)
[2023-04-14] MEDS: fentaNYL Drip 2500mCg/250mlNS 250 ML IV SCH (15:33)
[2023-04-14] MEDS: MAGNESIUM SULFATE 1GM/100ML 100 ML IV SCH ×2 (19:43→20:36)
[2023-04-14] MEDS: levETIRAcetam 1500 mg/100ml 100 ML IV SCH (22:05)
[2023-04-15] VITALS (108 sets, daily range): BP systolic 72–161; BP diastolic 39–87; PULSE 57–106; RESP 9–18; TEMP 97–99.1; O2SAT 98–100
[2023-04-15] MEDS: NOREPINEPHRINE 8 MG/250ML KIT 250 ML IV SCH (02:10)
[2023-04-15] MEDS: MIDAZOLAM DRIP 50 mg/50mL 50 ML IV SCH ×3 (04:59→21:50)
[2023-04-15 05:19] LABS: Basophils # (auto) 0.1 10 ^3/uL (0-0.2); Basophils % (auto) 0.8 % (0.0-2.0); Eosinophils # (auto) 0.4 10 ^3/uL (0-0.8); Eosinophils % (auto) 4.1 % (0.0-7.0); Hematocrit 30.5 % (41.0-53.0); Hemoglobin 10.3 g/dL (13.5-17.5); Lymphocytes # (auto) 1.3 10 ^3/uL (0.4-5.4); Mean Corpuscular Hgb Conc. 33.8 g/dL (32.0-36.0); Mean Corpuscular Volume 97.7 fL (80.0-100.0); Monocytes # (auto) 0.7 10 ^3/uL (0-1.3); Monocytes % (auto) 6.9 % (0.0-12.0); Neutrophils # (auto) 7.3 10 ^3/uL (1.6-8.6); Neutrophils % (auto) 75.2 % (37.0-80.0); Nucleated Red Blood Cells % 0.1 %; Red Blood Cells 3.13 10^6/uL (4.5-5.90); Red Cell Distribution Width 13.2 % (11.8-14.3); White Blood Cell 9.7 10^3/uL (4.4-10.8)
[2023-04-15] MEDS: PHENYTOIN SODIUM 50 MG/ML 2ML VIAL IV SCH ×4 (05:25→23:46)
[2023-04-15] MEDS: LEVOTHYROXINE SODIUM 100 MCG TAB PO SCH (05:29)
[2023-04-15] MEDS: InsuLIN REG 1unit/0.01ml Soln (100units/ml) SC SCH ×4 (05:32→21:51)
[2023-04-15] MEDS: ACCU-CHEK COMFORT CURVE STRIP VI SCH ×4 (05:32→21:51)
[2023-04-15 05:41] LABS: Alanine Aminotransferase 10 U/L (7-40); Albumin 3.2 g/dL (3.2-4.8); Alkaline Phosphatase 65 U/L (46-116); Anion Gap 12 (5-15); Aspartate Aminotransferase 25 U/L (13-40); Blood Urea Nitrogen 31 mg/dL (9-23); Carbon Dioxide 31 mmol/L (20-30); Chloride 100 mmol/L (98-107); Glucose 105 mg/dL (74-106); Sodium 143 mmol/L (136-145)
[2023-04-15 05:42] LABS: Bilirubin, Total 0.7 mg/dL (0.2-1.0); Total Protein 5.9 g/dL (5.7-8.2)
[2023-04-15 05:52] LABS: Potassium 2.3 mmol/L (3.5-5.1)
[2023-04-15 08:25] LABS: Base Excess 7.8 mmol/L (-2.0-2.0)
[2023-04-15] MEDS: CALCIUM CARB 500 MG CHEW TAB PO SCH ×2 (08:36→17:31)
[2023-04-15] MEDS: POTASSIUM CHL 20MEQ/100ML 100 ML IV SCH ×3 (08:36→12:12)
[2023-04-15] MEDS: CALCIUM GLUC 1,000mg/50ml-NS 50 ML IV SCH ×2 (09:58→10:24)
[2023-04-15] MEDS: levETIRAcetam 1500 mg/100ml 100 ML IV SCH ×2 (10:11→21:52)
[2023-04-15] MEDS: PANTOPRAZOLE 40 MG/10 ML VIAL INJ IV SCH (10:11)
[2023-04-15] MEDS: ENOXAPARIN SOD 40 MG/0.4 ML SYRINGE SC SCH (10:11)
[2023-04-15] MEDS: ASPirin-EC 81 mg tab PO SCH (10:12)
[2023-04-15] MEDS ORDERED: SODIUM CHL 0.9% IV ONE (10:15)
[2023-04-15] MEDS ORDERED: PHENYTOIN DILANTIN IV ONE (10:15)
[2023-04-15] MEDS: CALCITRIOL 0.25 MCG CAP PO SCH (10:21)
[2023-04-15] MEDS: SODIUM CHLORIDE 0.9% 1,000 ML IV SCH (11:06)
[2023-04-15 16:08] LABS: Phosphorus 3.1 mg/dL (2.4-5.1)
[2023-04-15] MEDS: fentaNYL Drip 2500mCg/250mlNS 250 ML IV SCH (16:22)
[2023-04-15 22:02] LABS: Urine Bacteria FEW /hpf (None Seen); Urine Blood Negative /uL (Negative); Urine Clarity Clear (Clear); Urine Color Colorless (Yellow); Urine Protein, UAD TRACE (Negative); Urine Specific Gravity 1.015 (1.001-1.035); Urine Urobilinogen Normal (Negative); Urine WBC 3 /hpf (0 - 3)
[2023-04-16] VITALS (110 sets, daily range): BP systolic 77–149; BP diastolic 45–90; PULSE 59–103; RESP 10–27; TEMP 98.1–99.3; O2SAT 98–100
[2023-04-16 04:20] LABS: Basophils # (auto) 0.1 10 ^3/uL (0-0.2); Basophils % (auto) 0.7 % (0.0-2.0); Eosinophils # (auto) 0.3 10 ^3/uL (0-0.8); Eosinophils % (auto) 3.8 % (0.0-7.0); Hematocrit 29.6 % (41.0-53.0); Hemoglobin 9.9 g/dL (13.5-17.5); Lymphocytes # (auto) 1.1 10 ^3/uL (0.4-5.4); Lymphocytes % (auto) 12.5 % (10.0-50.0); Mean Corpuscular Hemoglobin 32.7 pg (28.0-32.0); Mean Corpuscular Hgb Conc. 33.3 g/dL (32.0-36.0); Mean Corpuscular Volume 98.2 fL (80.0-100.0); Monocytes # (auto) 0.4 10 ^3/uL (0-1.3); Neutrophils # (auto) 6.8 10 ^3/uL (1.6-8.6); Nucleated Red Blood Cells % 0.1 %; Red Blood Cells 3.01 10^6/uL (4.5-5.90); Red Cell Distribution Width 13.5 % (11.8-14.3); White Blood Cell 8.7 10^3/uL (4.4-10.8)
[2023-04-16 04:41] LABS: Albumin 3.2 g/dL (3.2-4.8); Alkaline Phosphatase 67 U/L (46-116); Anion Gap 10 (5-15); Aspartate Aminotransferase 21 U/L (13-40); BUN/Creatinine Ratio 20.8 (10.0-20.0); Blood Urea Nitrogen 27 mg/dL (9-23); Calcium 6.6 mg/dL (8.7-10.4); Carbon Dioxide 30 mmol/L (20-30); Chloride 102 mmol/L (98-107); Glucose 83 mg/dL (74-106); Potassium 3.2 mmol/L (3.5-5.1); Sodium 142 mmol/L (136-145)
[2023-04-16 04:42] LABS: Alanine Aminotransferase 9 U/L (7-40); Bilirubin, Total 0.5 mg/dL (0.2-1.0); Total Protein 6.1 g/dL (5.7-8.2)
[2023-04-16] MEDS: NOREPINEPHRINE 8 MG/250ML KIT 250 ML IV SCH (04:44)
[2023-04-16] MEDS: MIDAZOLAM DRIP 50 mg/50mL 50 ML IV SCH (05:09)
[2023-04-16] MEDS: PHENYTOIN SODIUM 50 MG/ML 2ML VIAL IV SCH ×4 (06:13→23:09)
[2023-04-16] MEDS: LEVOTHYROXINE SODIUM 100 MCG TAB PO SCH (06:13)
[2023-04-16] MEDS: ACCU-CHEK COMFORT CURVE STRIP VI SCH ×4 (06:14→21:10)
[2023-04-16] MEDS: InsuLIN REG 1unit/0.01ml Soln (100units/ml) SC SCH ×4 (06:15→21:09)
[2023-04-16] MEDS ORDERED: POTASSIUM EFFERVESENT TAB 25 MEQ PO ONE (06:30)
[2023-04-16 07:15] LABS: Base Excess 3.6 mmol/L (-2.0-2.0)
[2023-04-16] MEDS: PANTOPRAZOLE 40 MG/10 ML VIAL INJ IV SCH (09:42)
[2023-04-16] MEDS: ASPirin-EC 81 mg tab PO SCH (09:42)
[2023-04-16] MEDS: ENOXAPARIN SOD 40 MG/0.4 ML SYRINGE SC SCH (09:43)
[2023-04-16] MEDS: levETIRAcetam 1500 mg/100ml 100 ML IV SCH ×2 (09:43→21:05)
[2023-04-16] MEDS: CALCITRIOL 0.25 MCG CAP PO SCH ×2 (10:01→17:49)
[2023-04-16] MEDS: CALCIUM CARB 500 MG CHEW TAB PO SCH ×2 (10:01→17:45)
[2023-04-16] MEDS ORDERED: POTASSIUM EFFERVESENT TAB 25 MEQ GT ONE (11:45)
[2023-04-16] MEDS ORDERED: FUROSEMIDE 40 MG/4 ML VIAL IV ONE (11:45)
[2023-04-16] MEDS: ACETYLCYSTEINE 10 %(100MG/ML) SOL 4ML NEB SCH ×2 (13:49→19:04)
[2023-04-16] MEDS: fentaNYL Drip 2500mCg/250mlNS 250 ML IV SCH (14:00)
[2023-04-16] MEDS: ALBUTEROL SULF 2.5 MG/0.5ML(0.5%) NEB SOLN NEB PRN ×2 (14:02→19:03)
[2023-04-16] MEDS ORDERED: ALBUTEROL MEDNEB 2.5 mg/3ml NEB ONE ×2 (14:04→18:06)
[2023-04-16] MEDS ORDERED: DexmedeTOMIDine 200 MCG in D5W 5% 48 ML IV SCH (16:15)
[2023-04-17] VITALS (113 sets, daily range): BP systolic 69–147; BP diastolic 41–80; PULSE 59–96; RESP 9–27; TEMP 96.4–98.2; O2SAT 93–100
[2023-04-17] MEDS ORDERED: ALBUTEROL MEDNEB 2.5 mg/3ml NEB ONE ×3 (00:04→18:05)
[2023-04-17] MEDS: ALBUTEROL SULF 2.5 MG/0.5ML(0.5%) NEB SOLN NEB PRN ×3 (00:20→18:30)
[2023-04-17] MEDS: ACETYLCYSTEINE 10 %(100MG/ML) SOL 4ML NEB SCH ×4 (00:20→18:30)
[2023-04-17] MEDS: NOREPINEPHRINE 8 MG/250ML KIT 250 ML IV SCH ×2 (01:00→07:13)
[2023-04-17 04:03] LABS: Basophils # (auto) 0 10 ^3/uL (0-0.2); Basophils % (auto) 0.3 % (0.0-2.0); Eosinophils # (auto) 0.3 10 ^3/uL (0-0.8); Eosinophils % (auto) 3.3 % (0.0-7.0); Hematocrit 30.2 % (41.0-53.0); Lymphocytes # (auto) 0.9 10 ^3/uL (0.4-5.4); Lymphocytes % (auto) 11.1 % (10.0-50.0); Mean Corpuscular Hemoglobin 32.5 pg (28.0-32.0); Mean Corpuscular Volume 98.5 fL (80.0-100.0); Monocytes # (auto) 0.6 10 ^3/uL (0-1.3); Monocytes % (auto) 7.1 % (0.0-12.0); Neutrophils # (auto) 6.1 10 ^3/uL (1.6-8.6); Neutrophils % (auto) 78.2 % (37.0-80.0); Red Blood Cells 3.07 10^6/uL (4.5-5.90); Red Cell Distribution Width 13.4 % (11.8-14.3); White Blood Cell 7.8 10^3/uL (4.4-10.8)
[2023-04-17 04:23] LABS: Alanine Aminotransferase 10 U/L (7-40); Albumin 3.5 g/dL (3.2-4.8); Alkaline Phosphatase 73 U/L (46-116); Anion Gap 12 (5-15); Aspartate Aminotransferase 19 U/L (13-40); BUN/Creatinine Ratio 17.4 (10.0-20.0); Bilirubin, Total 0.4 mg/dL (0.2-1.0); Blood Urea Nitrogen 23 mg/dL (9-23); Calcium 6.8 mg/dL (8.7-10.4); Carbon Dioxide 29 mmol/L (20-30); Chloride 99 mmol/L (98-107); Glucose 111 mg/dL (74-106); Potassium 3.7 mmol/L (3.5-5.1); Sodium 140 mmol/L (136-145); Total Protein 6.6 g/dL (5.7-8.2)
[2023-04-17] MEDS: PHENYTOIN SODIUM 50 MG/ML 2ML VIAL IV SCH ×3 (05:32→17:07)
[2023-04-17] MEDS: InsuLIN REG 1unit/0.01ml Soln (100units/ml) SC SCH ×4 (06:11→21:17)
[2023-04-17] MEDS: ACCU-CHEK COMFORT CURVE STRIP VI SCH ×4 (06:11→21:04)
[2023-04-17] MEDS: LEVOTHYROXINE SODIUM 100 MCG TAB PO SCH (06:11)
[2023-04-17] MEDS: MIDAZOLAM DRIP 50 mg/50mL 50 ML IV SCH (07:13)
[2023-04-17] MEDS: fentaNYL Drip 2500mCg/250mlNS 250 ML IV SCH (07:13)
[2023-04-17] MEDS: CALCITRIOL 0.25 MCG CAP PO SCH (07:42)
[2023-04-17] MEDS: levETIRAcetam 1500 mg/100ml 100 ML IV SCH ×2 (07:43→21:04)
[2023-04-17] MEDS: ENOXAPARIN SOD 40 MG/0.4 ML SYRINGE SC SCH (07:43)
[2023-04-17] MEDS: ASPirin-EC 81 mg tab PO SCH (07:43)
[2023-04-17] MEDS: CALCIUM CARB 500 MG CHEW TAB PO SCH ×2 (07:43→17:06)
[2023-04-17] MEDS: PANTOPRAZOLE 40 MG/10 ML VIAL INJ IV SCH (07:43)
[2023-04-17 09:31] LABS: Base Excess 4.3 mmol/L (-2.0-2.0)
[2023-04-17] MEDS ORDERED: PIPERACILLIN-TAZOB 3.375GM 100 ML IV ONE (13:00)
[2023-04-17] MEDS ORDERED: Jevity 1.2 Cal/Fiber 1 Liter GT SCH (15:15)
[2023-04-17] MEDS: PIPERACILLIN-TAZOB 3.375GM 100 ML IV SCH (21:04)
[2023-04-18] VITALS (101 sets, daily range): BP systolic 82–155; BP diastolic 51–90; PULSE 57–115; RESP 12–28; TEMP 96.6–100.4; O2SAT 92–100
[2023-04-18] MEDS: ALBUTEROL SULF 2.5 MG/0.5ML(0.5%) NEB SOLN NEB PRN ×5 (00:06→18:51)
[2023-04-18] MEDS: ACETYLCYSTEINE 10 %(100MG/ML) SOL 4ML NEB SCH ×4 (00:08→18:51)
[2023-04-18] MEDS: PHENYTOIN SODIUM 50 MG/ML 2ML VIAL IV SCH ×4 (00:10→16:51)
[2023-04-18 04:05] LABS: Basophils # (auto) 0 10 ^3/uL (0-0.2); Basophils % (auto) 0.4 % (0.0-2.0); Eosinophils # (auto) 0.2 10 ^3/uL (0-0.8); Hematocrit 28.4 % (41.0-53.0); Hemoglobin 9.3 g/dL (13.5-17.5); Lymphocytes # (auto) 0.5 10 ^3/uL (0.4-5.4); Lymphocytes % (auto) 8.5 % (10.0-50.0); Mean Corpuscular Hemoglobin 32.3 pg (28.0-32.0); Mean Corpuscular Hgb Conc. 32.8 g/dL (32.0-36.0); Mean Corpuscular Volume 98.4 fL (80.0-100.0); Monocytes # (auto) 0.4 10 ^3/uL (0-1.3); Monocytes % (auto) 6.7 % (0.0-12.0); Neutrophils % (auto) 80.4 % (37.0-80.0); Red Blood Cells 2.88 10^6/uL (4.5-5.90); Red Cell Distribution Width 13.3 % (11.8-14.3); White Blood Cell 6.2 10^3/uL (4.4-10.8)
[2023-04-18 04:40] LABS: Alanine Aminotransferase < 9 U/L (7-40); Albumin 3.4 g/dL (3.2-4.8); Aspartate Aminotransferase 21 U/L (13-40); BUN/Creatinine Ratio 13.8 (10.0-20.0); Blood Urea Nitrogen 19 mg/dL (9-23); Chloride 98 mmol/L (98-107); Glucose 136 mg/dL (74-106); Potassium 3.3 mmol/L (3.5-5.1); Sodium 139 mmol/L (136-145); Total Protein 6.3 g/dL (5.7-8.2)
[2023-04-18 04:41] LABS: Anion Gap 12 (5-15); Calcium 6.7 mg/dL (8.7-10.4); Carbon Dioxide 29 mmol/L (20-30)
[2023-04-18 04:46] LABS: Alkaline Phosphatase 69 U/L (46-116)
[2023-04-18 04:57] LABS: Bilirubin, Total 0.4 mg/dL (0.2-1.0)
[2023-04-18] MEDS: PIPERACILLIN-TAZOB 3.375GM 100 ML IV SCH ×3 (05:05→21:29)
[2023-04-18] MEDS ORDERED: ALBUTEROL MEDNEB 2.5 mg/3ml NEB ONE ×3 (05:58→11:02)
[2023-04-18] MEDS: LEVOTHYROXINE SODIUM 100 MCG TAB PO SCH (06:13)
[2023-04-18] MEDS: ACCU-CHEK COMFORT CURVE STRIP VI SCH ×4 (06:13→21:29)
[2023-04-18] MEDS: InsuLIN REG 1unit/0.01ml Soln (100units/ml) SC SCH ×4 (06:14→21:29)
[2023-04-18 07:54] LABS: Base Excess 3.6 mmol/L (-2.0-2.0)
[2023-04-18] MEDS: ENOXAPARIN SOD 40 MG/0.4 ML SYRINGE SC SCH (07:59)
[2023-04-18] MEDS: levETIRAcetam 1500 mg/100ml 100 ML IV SCH ×2 (08:04→21:29)
[2023-04-18] MEDS: ASPirin-EC 81 mg tab PO SCH (08:04)
[2023-04-18] MEDS: CALCIUM CARB 500 MG CHEW TAB PO SCH ×2 (08:04→16:51)
[2023-04-18] MEDS: PANTOPRAZOLE 40 MG/10 ML VIAL INJ IV SCH (08:04)
[2023-04-18] MEDS: CALCITRIOL 0.25 MCG CAP PO SCH (08:05)
[2023-04-18] MEDS: fentaNYL Drip 2500mCg/250mlNS 250 ML IV SCH (09:17)
[2023-04-18] MEDS: PROPOFOL 100 ML IV SCH (10:24)
[2023-04-18] MEDS ORDERED: MIDAZOLAM HCL 2MG/2ML 2ml VIAL (1mg/ml) ONE (11:13)
[2023-04-18] MEDS ORDERED: diphenhdrAMINE HCL 50 MG/1 ML VL ONE (11:13)
[2023-04-18] MEDS ORDERED: fentaNYL CITRATE 100 MCG/2 ML VL ONE (11:14)
[2023-04-18] MEDS ORDERED: LIDOCAINE 2% JELLY 11ml (GLYDO) ONE (11:22)
[2023-04-18] MEDS ORDERED: EPINEPHrine HCL 1 MG/1 ML AMP ONE (11:23)
[2023-04-18] MEDS ORDERED: LIDOCAINE W/ EPINEPHRINE 2% INJ 20ML VIAL ONE (11:29)
[2023-04-18] MEDS ORDERED: LIDOCAINE 2%HCL (LOCAL ANESTH.) INJ 10ml MDV ONE (11:29)
[2023-04-18] MEDS: POTASSIUM CHL 20MEQ/100ML 100 ML IV SCH ×2 (12:00→14:00)
[2023-04-18 15:09] LABS: Base Excess 5.5 mmol/L (-2.0-2.0)
[2023-04-19] VITALS (62 sets, daily range): BP systolic 112–150; BP diastolic 64–90; PULSE 76–103; RESP 11–26; TEMP 98–99.8; O2SAT 91–100
[2023-04-19] MEDS: PHENYTOIN SODIUM 50 MG/ML 2ML VIAL IV SCH ×5 (00:05→23:35)
[2023-04-19] MEDS: ALBUTEROL SULF 2.5 MG/0.5ML(0.5%) NEB SOLN NEB PRN ×5 (00:41→23:18)
[2023-04-19] MEDS: ACETYLCYSTEINE 10 %(100MG/ML) SOL 4ML NEB SCH ×4 (00:41→17:50)
[2023-04-19] MEDS: NOREPINEPHRINE 8 MG/250ML KIT 250 ML IV SCH (01:00)
[2023-04-19] MEDS: MIDAZOLAM DRIP 50 mg/50mL 50 ML IV SCH (01:15)
[2023-04-19 04:05] LABS: Basophils # (auto) 0 10 ^3/uL (0-0.2); Basophils % (auto) 0.5 % (0.0-2.0); Eosinophils # (auto) 0.5 10 ^3/uL (0-0.8); Eosinophils % (auto) 5.8 % (0.0-7.0); Hematocrit 31.5 % (41.0-53.0); Hemoglobin 10.4 g/dL (13.5-17.5); Lymphocytes # (auto) 0.7 10 ^3/uL (0.4-5.4); Mean Corpuscular Hemoglobin 32.2 pg (28.0-32.0); Mean Corpuscular Volume 97.8 fL (80.0-100.0); Monocytes # (auto) 0.7 10 ^3/uL (0-1.3); Monocytes % (auto) 8.2 % (0.0-12.0); Neutrophils # (auto) 6.5 10 ^3/uL (1.6-8.6); Neutrophils % (auto) 77.5 % (37.0-80.0); Nucleated Red Blood Cells % 0.1 %; Red Blood Cells 3.22 10^6/uL (4.5-5.90); White Blood Cell 8.4 10^3/uL (4.4-10.8)
[2023-04-19 04:15] LABS: Anion Gap 8 (5-15); Carbon Dioxide 29 mmol/L (20-30); Chloride 100 mmol/L (98-107); Potassium 3.7 mmol/L (3.5-5.1); Sodium 137 mmol/L (136-145)
[2023-04-19 04:16] LABS: Calcium 6.9 mg/dL (8.7-10.4)
[2023-04-19 04:21] LABS: BUN/Creatinine Ratio 10.1 (10.0-20.0); Blood Urea Nitrogen 14 mg/dL (9-23); Glucose 93 mg/dL (74-106)
[2023-04-19] MEDS: ACCU-CHEK COMFORT CURVE STRIP VI SCH ×4 (06:30→22:02)
[2023-04-19] MEDS: PIPERACILLIN-TAZOB 3.375GM 100 ML IV SCH ×3 (06:31→22:00)
[2023-04-19] MEDS: InsuLIN REG 1unit/0.01ml Soln (100units/ml) SC SCH ×4 (06:31→21:59)
[2023-04-19] MEDS: LEVOTHYROXINE SODIUM 100 MCG TAB PO SCH (06:38)
[2023-04-19] MEDS ORDERED: ALBUTEROL MEDNEB 2.5 mg/3ml NEB ONE ×2 (06:46→12:51)
[2023-04-19] MEDS: PROPOFOL 100 ML IV SCH (07:05)
[2023-04-19] MEDS: CALCIUM CARB 500 MG CHEW TAB PO SCH ×2 (08:00→16:44)
[2023-04-19] MEDS: ENOXAPARIN SOD 40 MG/0.4 ML SYRINGE SC SCH (08:39)
[2023-04-19] MEDS: PANTOPRAZOLE 40 MG/10 ML VIAL INJ IV SCH (08:39)
[2023-04-19] MEDS: levETIRAcetam 1500 mg/100ml 100 ML IV SCH ×2 (08:40→21:39)
[2023-04-19] MEDS: CALCITRIOL 0.25 MCG CAP PO SCH (08:40)
[2023-04-19] MEDS: ASPirin-EC 81 mg tab PO SCH (08:40)
[2023-04-19] MEDS: fentaNYL Drip 2500mCg/250mlNS 250 ML IV SCH (10:08)
[2023-04-19] MEDS ORDERED: Ensure HIGH Protein Chocolate 8oz Bottle PO SCH (13:00)
[2023-04-19] MEDS: Glucerna Carbsteady SHAKE Vanilla 8oz PO SCH ×2 (13:30→18:00)
[2023-04-20] VITALS (10 sets, daily range): BP systolic 107–126; BP diastolic 54–69; PULSE 85–97; RESP 18–19; TEMP 97.9–98.6; O2SAT 97–100
[2023-04-20] MEDS: levETIRAcetam 1500 mg/100ml 100 ML IV SCH (05:19)
[2023-04-20] MEDS: ACETAMINOPHEN 325 MG TAB PO PRN (05:31)
[2023-04-20] MEDS: PHENYTOIN SODIUM 50 MG/ML 2ML VIAL IV SCH ×2 (05:34→13:00)
[2023-04-20] MEDS: PIPERACILLIN-TAZOB 3.375GM 100 ML IV SCH ×3 (05:36→21:08)
[2023-04-20] MEDS: ACCU-CHEK COMFORT CURVE STRIP VI SCH ×4 (05:45→21:18)
[2023-04-20] MEDS: InsuLIN REG 1unit/0.01ml Soln (100units/ml) SC SCH ×4 (05:48→21:18)
[2023-04-20] MEDS: LEVOTHYROXINE SODIUM 100 MCG TAB PO SCH (05:52)
[2023-04-20 06:08] LABS: Chloride 106 mmol/L (98-107); Potassium 4.3 mmol/L (3.5-5.1); Sodium 142 mmol/L (136-145)
[2023-04-20 06:09] LABS: Anion Gap 9 (5-15); Calcium 6.4 mg/dL (8.7-10.4); Carbon Dioxide 27 mmol/L (20-30)
[2023-04-20 06:14] LABS: BUN/Creatinine Ratio 5.7 (10.0-20.0); Blood Urea Nitrogen 9 mg/dL (9-23); Glucose 121 mg/dL (74-106)
[2023-04-20] MEDS ORDERED: ACETYLCYSTEINE 10 %(100MG/ML) SOL 4ML ONE (07:06)
[2023-04-20] MEDS ORDERED: ALBUTEROL MEDNEB 2.5 mg/3ml NEB ONE (07:06)
[2023-04-20] MEDS: CALCIUM CARB 500 MG CHEW TAB PO SCH ×2 (08:20→18:22)
[2023-04-20] MEDS: Glucerna Carbsteady SHAKE Vanilla 8oz PO SCH ×3 (08:21→18:26)
[2023-04-20] MEDS: PANTOPRAZOLE 40 MG/10 ML VIAL INJ IV SCH (09:14)
[2023-04-20] MEDS: ASPirin-EC 81 mg tab PO SCH (09:14)
[2023-04-20] MEDS: CALCITRIOL 0.25 MCG CAP PO SCH (09:14)
[2023-04-20] MEDS: ENOXAPARIN SOD 40 MG/0.4 ML SYRINGE SC SCH (09:15)
[2023-04-20 10:52] LABS: Basophils # (auto) 0.1 10 ^3/uL (0-0.2); Basophils % (auto) 0.7 % (0.0-2.0); Eosinophils # (auto) 0.4 10 ^3/uL (0-0.8); Eosinophils % (auto) 5.7 % (0.0-7.0); Hemoglobin 9.3 g/dL (13.5-17.5); Lymphocytes # (auto) 0.8 10 ^3/uL (0.4-5.4); Lymphocytes % (auto) 10.9 % (10.0-50.0); Mean Corpuscular Hgb Conc. 32.2 g/dL (32.0-36.0); Mean Corpuscular Volume 99.4 fL (80.0-100.0); Monocytes # (auto) 0.8 10 ^3/uL (0-1.3); Monocytes % (auto) 10.9 % (0.0-12.0); Neutrophils # (auto) 5.4 10 ^3/uL (1.6-8.6); Neutrophils % (auto) 71.8 % (37.0-80.0); Nucleated Red Blood Cells % 0.1 %; Red Blood Cells 2.92 10^6/uL (4.5-5.90); Red Cell Distribution Width 13.3 % (11.8-14.3); White Blood Cell 7.5 10^3/uL (4.4-10.8)
[2023-04-20] MEDS: ERGOCALCIFEROL 50,000 UNIT(1.25MG) CAP PO SCH (18:22)
[2023-04-20] MEDS: levETIRAcetam 500 MG TAB PO SCH (21:07)
[2023-04-20] MEDS: PHENYTOIN SODIUM 100 MG CAP PO SCH (21:07)
[2023-04-21] VITALS (13 sets, daily range): BP systolic 116–145; BP diastolic 58–76; PULSE 76–89; RESP 15–20; TEMP 97.7–98.6; O2SAT 95–99
[2023-04-21 05:22] LABS: Basophils # (auto) 0.1 10 ^3/uL (0-0.2); Basophils % (auto) 0.9 % (0.0-2.0); Eosinophils # (auto) 0.4 10 ^3/uL (0-0.8); Eosinophils % (auto) 6.3 % (0.0-7.0); Hematocrit 27.7 % (41.0-53.0); Hemoglobin 9.1 g/dL (13.5-17.5); Lymphocytes # (auto) 1.2 10 ^3/uL (0.4-5.4); Lymphocytes % (auto) 21.1 % (10.0-50.0); Mean Corpuscular Hemoglobin 32.8 pg (28.0-32.0); Mean Corpuscular Hgb Conc. 32.9 g/dL (32.0-36.0); Mean Corpuscular Volume 99.5 fL (80.0-100.0); Monocytes # (auto) 0.6 10 ^3/uL (0-1.3); Monocytes % (auto) 10.3 % (0.0-12.0); Neutrophils # (auto) 3.6 10 ^3/uL (1.6-8.6); Neutrophils % (auto) 61.4 % (37.0-80.0); Red Blood Cells 2.78 10^6/uL (4.5-5.90); White Blood Cell 5.8 10^3/uL (4.4-10.8)
[2023-04-21 05:29] LABS: Albumin 3.4 g/dL (3.2-4.8); Alkaline Phosphatase 55 U/L (46-116); Anion Gap 5 (5-15); Aspartate Aminotransferase 14 U/L (13-40); BUN/Creatinine Ratio 12.7 (10.0-20.0); Bilirubin, Total 0.4 mg/dL (0.2-1.0); Blood Urea Nitrogen 19 mg/dL (9-23); Calcium 6.1 mg/dL (8.7-10.4); Carbon Dioxide 32 mmol/L (20-30); Chloride 108 mmol/L (98-107); Glucose 100 mg/dL (74-106); Sodium 145 mmol/L (136-145)
[2023-04-21 05:30] LABS: Total Protein 6.4 g/dL (5.7-8.2)
[2023-04-21 05:35] LABS: Alanine Aminotransferase 9 U/L (7-40)
[2023-04-21] MEDS: PIPERACILLIN-TAZOB 3.375GM 100 ML IV SCH ×3 (06:20→21:50)
[2023-04-21] MEDS: ACCU-CHEK COMFORT CURVE STRIP VI SCH ×4 (06:20→22:08)
[2023-04-21] MEDS: LEVOTHYROXINE SODIUM 100 MCG TAB PO SCH (06:20)
[2023-04-21] MEDS: InsuLIN REG 1unit/0.01ml Soln (100units/ml) SC SCH ×4 (06:21→22:32)
[2023-04-21] MEDS: ALBUTEROL SULF 2.5 MG/0.5ML(0.5%) NEB SOLN NEB PRN (06:55)
[2023-04-21] MEDS: Glucerna Carbsteady SHAKE Vanilla 8oz PO SCH ×3 (08:10→17:43)
[2023-04-21] MEDS: CALCIUM CARB 500 MG CHEW TAB PO SCH ×2 (08:10→17:43)
[2023-04-21] MEDS: levETIRAcetam 500 MG TAB PO SCH ×2 (09:35→22:08)
[2023-04-21] MEDS: PANTOPRAZOLE 40 MG TAB PO SCH (09:35)
[2023-04-21] MEDS: ASPirin-EC 81 mg tab PO SCH (09:35)
[2023-04-21] MEDS: ENOXAPARIN SOD 40 MG/0.4 ML SYRINGE SC SCH (09:36)
[2023-04-21] MEDS: PHENYTOIN SODIUM 100 MG CAP PO SCH ×2 (09:36→21:52)
[2023-04-21] MEDS: CALCITRIOL 0.25 MCG CAP PO SCH (09:36)
[2023-04-21] MEDS ORDERED: ALBUTEROL MEDNEB 2.5 mg/3ml NEB NEB PRN (15:45)
[2023-04-22] VITALS (7 sets, daily range): BP systolic 125–149; BP diastolic 62–74; PULSE 66–84; RESP 18–19; TEMP 97.8–98.2; O2SAT 93–100
[2023-04-22] MEDS: InsuLIN REG 1unit/0.01ml Soln (100units/ml) SC SCH ×3 (05:57→17:30)
[2023-04-22] MEDS: PIPERACILLIN-TAZOB 3.375GM 100 ML IV SCH ×2 (06:06→14:15)
[2023-04-22] MEDS: LEVOTHYROXINE SODIUM 100 MCG TAB PO SCH (06:07)
[2023-04-22] MEDS: ACCU-CHEK COMFORT CURVE STRIP VI SCH ×3 (06:36→17:31)
[2023-04-22 07:19] LABS: Basophils # (auto) 0 10 ^3/uL (0-0.2); Basophils % (auto) 0.6 % (0.0-2.0); Eosinophils # (auto) 0.4 10 ^3/uL (0-0.8); Eosinophils % (auto) 5.5 % (0.0-7.0); Hematocrit 30.4 % (41.0-53.0); Hemoglobin 9.6 g/dL (13.5-17.5); Lymphocytes # (auto) 1.7 10 ^3/uL (0.4-5.4); Lymphocytes % (auto) 23.1 % (10.0-50.0); Mean Corpuscular Hemoglobin 32.1 pg (28.0-32.0); Mean Corpuscular Hgb Conc. 31.7 g/dL (32.0-36.0); Mean Corpuscular Volume 101.2 fL (80.0-100.0); Monocytes # (auto) 0.7 10 ^3/uL (0-1.3); Monocytes % (auto) 9.2 % (0.0-12.0); Neutrophils # (auto) 4.6 10 ^3/uL (1.6-8.6); Neutrophils % (auto) 61.6 % (37.0-80.0); Nucleated Red Blood Cells % 0.1 %; Red Blood Cells 3.01 10^6/uL (4.5-5.90); Red Cell Distribution Width 13.1 % (11.8-14.3); White Blood Cell 7.4 10^3/uL (4.4-10.8)
[2023-04-22 07:37] LABS: Alanine Aminotransferase 10 U/L (7-40); Alkaline Phosphatase 56 U/L (46-116); Anion Gap 6 (5-15); BUN/Creatinine Ratio 11.6 (10.0-20.0); Blood Urea Nitrogen 15 mg/dL (9-23); Calcium 6.2 mg/dL (8.7-10.4); Carbon Dioxide 31 mmol/L (20-30); Chloride 107 mmol/L (98-107); Glucose 96 mg/dL (74-106); Potassium 4.1 mmol/L (3.5-5.1); Sodium 144 mmol/L (136-145)
[2023-04-22] MEDS: CALCIUM CARB 500 MG CHEW TAB PO SCH ×2 (07:37→17:36)
[2023-04-22 07:38] LABS: Albumin 3.5 g/dL (3.2-4.8); Aspartate Aminotransferase 14 U/L (13-40); Bilirubin, Total 0.3 mg/dL (0.2-1.0)
[2023-04-22 07:39] LABS: Total Protein 6.5 g/dL (5.7-8.2)
[2023-04-22] MEDS: Glucerna Carbsteady SHAKE Vanilla 8oz PO SCH ×3 (07:57→17:32)
[2023-04-22] MEDS: CALCITRIOL 0.25 MCG CAP PO SCH (09:45)
[2023-04-22] MEDS: levETIRAcetam 500 MG TAB PO SCH (09:45)
[2023-04-22] MEDS: PANTOPRAZOLE 40 MG TAB PO SCH (09:45)
[2023-04-22] MEDS: ASPirin-EC 81 mg tab PO SCH (09:45)
[2023-04-22] MEDS: PHENYTOIN SODIUM 100 MG CAP PO SCH (09:45)
[2023-04-22] MEDS: ENOXAPARIN SOD 40 MG/0.4 ML SYRINGE SC SCH (09:46)
[2023-04-22] MEDS ORDERED: FURO20TA3 PO (10:49)
[2023-04-22] MEDS ORDERED: [UNRECOGNIZED DRUG - CODE] PO (10:49)
[2023-04-22] MEDS ORDERED: DIVA250T12 PO (10:49)
[2023-04-22] MEDS ORDERED: ALPR0.254 PO (10:49)
[2023-04-22] MEDS ORDERED: POM PO (10:49)
[2023-04-22] MEDS ORDERED: CALC500C52 PO (14:38)
[2023-04-22] MEDS ORDERED: CALC0.5C PO (14:38)
== END 2023-04-22 18:25 | disposition home health service (06) | DRG 207 ==
LOC: ER 13:05 → EDBD 13:05 → TELE 18:45 → EDBD 18:45 → ICU WEST 04-14 20:50 → TELE-WESTW 04-19 17:00
PROVIDERS: ADMIT Internal Medicine; ATTEND Internal Medicine
PROC: 05H933Z Insertion of Infusion Device into Right Brachial Vein, Percutaneous Approach (ICD-10-PCS; 2023-04-13)
PROC: B54MZZA Ultrasonography of Right Upper Extremity Veins, Guidance (ICD-10-PCS; 2023-04-13)
PROC: 5A1955Z Respiratory Ventilation, Greater than 96 Consecutive Hours (ICD-10-PCS; principal; 2023-04-14)
PROC: 0BH17EZ Insertion of Endotracheal Airway into Trachea, Via Natural or Artificial Opening (ICD-10-PCS; 2023-04-14)
PROC: 02HV33Z Insertion of Infusion Device into Superior Vena Cava, Percutaneous Approach (ICD-10-PCS; 2023-04-14)
PROC: 0B9J8ZX Drainage of Left Lower Lung Lobe, Via Natural or Artificial Opening Endoscopic, Diagnostic (ICD-10-PCS; 2023-04-18)
PROC: 0B9F8ZX Drainage of Right Lower Lung Lobe, Via Natural or Artificial Opening Endoscopic, Diagnostic (ICD-10-PCS; 2023-04-18)
DX: J96.01 Acute respiratory failure with hypoxia (principal); J15.69 Pneumonia due to other Gram-negative bacteria; N17.0 Acute kidney failure with tubular necrosis; E87.4 Mixed disorder of acid-base balance; R57.9 Shock, unspecified; J44.0 Chronic obstructive pulmonary disease with (acute) lower respiratory infection; I13.0 Hypertensive heart and chronic kidney disease with heart failure and stage 1 through stage 4 chronic kidney disease, or unspecified chronic kidney disease; G40.401 Other generalized epilepsy and epileptic syndromes, not intractable, with status epilepticus; E11.22 Type 2 diabetes mellitus with diabetic chronic kidney disease; E87.6 Hypokalemia; E03.9 Hypothyroidism, unspecified; E83.51 Hypocalcemia; E78.5 Hyperlipidemia, unspecified; I50.9 Heart failure, unspecified; N18.31 Chronic kidney disease, stage 3a; Z74.01 Bed confinement status; Z79.2 Long term (current) use of antibiotics; Z79.899 Other long term (current) drug therapy; Z82.49 Family history of ischemic heart disease and other diseases of the circulatory system; Z83.3 Family history of diabetes mellitus; Z82.0 Family history of epilepsy and other diseases of the nervous system; Z86.73 Personal history of transient ischemic attack (TIA), and cerebral infarction without residual deficits; Z99.81 Dependence on supplemental oxygen; Z79.82 Long term (current) use of aspirin
CPT/HCPCS: 31622; 36415; 36600; 70450; 71045; 80048; 80053; 80061; 80164; 80185; 80307; 81001; 82310; 82542; 82550; 82805; 82962; 83036; 83735; 83880; 83970; 84100; 84443; 84484; 85025; 85610; 85730; 87070; 87081; 87086; 87205; 93005; 93306; 93970; 94002; 94003; 94640; 95819; 96372; 96374; 97163; C9113; G0378; J0171; J0330; J1815; J2001; J2250; J2543; J2704; J3480; J7060

== ENCOUNTER 2023-12-24 13:22 | Inpatient (IN) | payer OTHER, MEDICAID ==
[~2023-12-24] VITALS: Ht 177.8 cm; Wt 91.1 kg
[~2023-12-24 13:22] MED LIST changes: +ALBU2TAB11 INH; -ASPI-543 PO; -CALC500C65 PO; -CEPH-510 PO; +DIVA250T12 PO; +DOX100T PO; -DOXY-448 PO; -ERGO1CAP23 PO; -GUAIFENESIN; -HYDR-4296 PO; -LANC-347 XX; +LEVO125T7 PO; -LEVO175C2 PO; -LISI40TA; -PHEN1CAP60 PO; +POM PO; +PRED1PAK9 PO; +TIOT17SP IN; +TIOT1AER IN
[2023-12-24] MEDS: IPRATROPIUM BROM 0.5 MG/2.5ML INH SOL HHN ONE (13:55)
[2023-12-24] MEDS: ALBUTEROL SULF 2.5 MG/0.5ML(0.5%) NEB SOLN HHN ONE (13:55)
[2023-12-24] MEDS: methylPREDNISolone SOD SUCC 125 MG/2 ML VL IV ONE (14:13)
[2023-12-24 14:19] VITALS: PULSE 140; O2SAT 89
[2023-12-24 14:30] LABS: Urine Bacteria None Seen /hpf (None Seen)
[2023-12-24 14:34] LABS: Hematocrit 36.1 % (41.0-53.0); Hemoglobin 11.8 g/dL (13.5-17.5); Mean Corpuscular Hemoglobin 32.6 pg (28.0-32.0); Mean Corpuscular Hgb Conc. 32.7 g/dL (32.0-36.0); Mean Corpuscular Volume 99.7 fL (80.0-100.0); Platelet Count (auto) 288 10^3/uL (140-450); Red Blood Cells 3.63 10^6/uL (4.5-5.90); Red Cell Distribution Width 13.8 % (11.8-14.3); White Blood Cell 13.9 10^3/uL (4.4-10.8)
[2023-12-24 14:38] LABS: Basophils % (manual) 0 (0.0-2.0); Blast Cells 0; Eosinophils % (manual) 0 (0-7); Myelocytes % 0; Promyelocytes % 0; Reactive Lymphocytes 0
[2023-12-24] MEDS: cefTRIAXone 1GM/50ML D5W 50 ML IV ONE (14:40)
[2023-12-24] MEDS: ACETAMINOPHEN 325 MG TAB PO ONE (14:41)
[2023-12-24] MEDS: SODIUM CHLORIDE 0.9% 2,200 ML IV ONE (14:42)
[2023-12-24] MEDS: VANCOMYCIN 1GM/200ML 200 ML IV ONE (14:42)
[2023-12-24 14:43] LABS: Chloride 95 mmol/L (98-107); Potassium 3.1 mmol/L (3.5-5.1); Sodium 145 mmol/L (136-145)
[2023-12-24 14:44] LABS: Calcium 7.1 mg/dL (8.7-10.4)
[2023-12-24 14:45] LABS: Urine Blood TRACE /uL (Negative); Urine Clarity Clear (Clear); Urine Color Light-Yellow (Yellow); Urine Protein, UAD 2+ (Negative); Urine Specific Gravity 1.015 (1.001-1.035); Urine Urobilinogen Normal (Negative); Urine WBC 2 /hpf (0 - 3); Urine pH 7.5 (5.0-9.0)
[2023-12-24 14:49] LABS: Blood Urea Nitrogen 15 mg/dL (9-23); Glucose 227 mg/dL (74-106)
[2023-12-24 15:04] LABS: Anion Gap 9.99999 (5-15); Carbon Dioxide > 40 mmol/L (20-30)
[2023-12-24 15:39] LABS: Rapid Influenza A Negative (Negative); Rapid Influenza B Negative (Negative)
[2023-12-24 15:40] LABS: COVID19 ANTIGEN SOFIA FIA NEGATIVE (NEGATIVE)
[2023-12-24 15:54] LABS: Band Neutrophils % (manual) 5; Lymphocytes % (manual) 5 (10.0-50.0); Metamyelocytes % 1; Monocytes % (manual) 13 (0-12); Platelet Estimate Adequate
[2023-12-24 15:55] LABS: Stomatocytes Moderate
[2023-12-24] MEDS: SUCCINYLCHOLINE CHLORIDE 20 MG/ML 10ML VIAL IV ONE ×3 (16:04→16:15)
[2023-12-24] MEDS: ETOMIDATE (2MG/ML) 20ML VIAL IV ONE ×3 (16:04→16:15)
[2023-12-24] MEDS: MIDAZOLAM DRIP 50 mg/50mL 50 ML IV ONE (16:04)
[2023-12-24] MEDS ORDERED: VANCOMYCIN PER PHARMACY 0 MG IV SCH (16:15)
[2023-12-24] MEDS ORDERED: DOCUSATE SOD 100 MG CAP PO PRN (16:15)
[2023-12-24] MEDS ORDERED: ONDANSETRON HCL 4 MG/2 ML VIAL IV PRN (16:15)
[2023-12-24] MEDS: MIDAZOLAM DRIP 50 mg/50mL 50 ML IV SCH (16:15)
[2023-12-24] MEDS: SODIUM CHLORIDE 0.9% 1,000 ML IV SCH (16:15)
[2023-12-24] MEDS: LEVOFLOXACIN 500 MG IV SCH (16:15)
[2023-12-24] MEDS ORDERED: NOREPINEPHRINE 8 MG/250ML KIT 250 ML IV SCH (16:15)
[2023-12-24] MEDS: NOREPINEPHRINE 8 MG/250ML KIT 250 ML IV ONE (16:43)
[2023-12-24] MEDS: NOREPINEPHRINE 8 MG/250ML KIT 250 ML IV SCH (16:45)
[2023-12-24] MEDS: DexAMETHasone SOD PHOS 10MG/1ML VIAL INJ IV SCH (18:11)
[2023-12-24 18:13] VITALS: BP 115/75; PULSE 122; RESP 16; O2SAT 96
[2023-12-24 19:25] VITALS: PULSE 124; RESP 16; O2SAT 99
[2023-12-24 20:22] VITALS: BP 108/64; PULSE 97; RESP 16; O2SAT 100
[2023-12-24 20:25] VITALS: BP 108/64; PULSE 97; RESP 16; O2SAT 100
[2023-12-24 21:52] LABS: Chloride 98 mmol/L (98-107); Sodium 144 mmol/L (136-145)
[2023-12-24 21:53] LABS: Calcium 6.4 mg/dL (8.7-10.4)
[2023-12-24 21:57] LABS: Anion Gap 5.99999 (5-15); Carbon Dioxide > 40 mmol/L (20-30)
[2023-12-24 21:58] LABS: BUN/Creatinine Ratio 20.7 (10.0-20.0); Blood Urea Nitrogen 18 mg/dL (9-23); Glucose 310 mg/dL (74-106)
[2023-12-24 22:39] VITALS: BP 110/68; PULSE 87; RESP 16; O2SAT 96
[2023-12-24 22:39] LABS: Base Excess 18.3 mmol/L (-2.0-2.0)
[2023-12-24] MEDS: PROPOFOL 100 ML IV SCH (23:09)
[2023-12-25] VITALS (44 sets, daily range): BP systolic 97–125; BP diastolic 55–71; PULSE 58–83; RESP 10–14; TEMP 96.6–97; O2SAT 93–100
[2023-12-25 00:36] LABS: Base Excess 17.7 mmol/L (-2.0-2.0)
[2023-12-25 04:01] LABS: Basophils # (auto) 0 10 ^3/uL (0-0.2); Basophils % (auto) 0.2 % (0.0-2.0); Eosinophils # (auto) 0 10 ^3/uL (0-0.8); Hematocrit 28.9 % (41.0-53.0); Hemoglobin 9.8 g/dL (13.5-17.5); Lymphocytes # (auto) 0.3 10 ^3/uL (0.4-5.4); Lymphocytes % (auto) 3.6 % (10.0-50.0); Mean Corpuscular Hemoglobin 33.8 pg (28.0-32.0); Mean Corpuscular Hgb Conc. 33.9 g/dL (32.0-36.0); Mean Corpuscular Volume 99.6 fL (80.0-100.0); Monocytes # (auto) 0.5 10 ^3/uL (0-1.3); Monocytes % (auto) 6.6 % (0.0-12.0); Neutrophils # (auto) 7.4 10 ^3/uL (1.6-8.6); Neutrophils % (auto) 89.6 % (37.0-80.0); Nucleated Red Blood Cells % 0.1 %; Platelet Count (auto) 212 10^3/uL (140-450); Red Cell Distribution Width 13.7 % (11.8-14.3); White Blood Cell 8.2 10^3/uL (4.4-10.8)
[2023-12-25 04:30] LABS: Alkaline Phosphatase 48 U/L (46-116); Calcium 6.3 mg/dL (8.7-10.4); Chloride 99 mmol/L (98-107); Glucose 282 mg/dL (74-106); Potassium 3.3 mmol/L (3.5-5.1)
[2023-12-25 04:31] LABS: Aspartate Aminotransferase 11 U/L (13-40); BUN/Creatinine Ratio 22.2 (10.0-20.0); Bilirubin, Total 0.2 mg/dL (0.2-1.0); Blood Urea Nitrogen 18 mg/dL (9-23); Sodium 144 mmol/L (136-145); Total Protein 5.6 g/dL (5.7-8.2)
[2023-12-25 04:51] LABS: Alanine Aminotransferase < 9 U/L (7-40); Anion Gap 4.99999 (5-15)
[2023-12-25 04:52] LABS: Carbon Dioxide > 40 mmol/L (20-30)
[2023-12-25] MEDS: VANCOMYCIN 1GM/200ML 200 ML IV SCH (05:10)
[2023-12-25] MEDS ORDERED: PIPERACILLIN-TAZO 4.5GM 100 ML IV ONE (08:30)
[2023-12-25] MEDS ORDERED: PANTOPRAZOLE 40 MG/10 ML VIAL INJ IV ONE (08:30)
[2023-12-25] MEDS ORDERED: DEXTROSE (50%) 50ML SYRG IV PRN (08:30)
[2023-12-25] MEDS ORDERED: POTASSIUM CHL 20MEQ/100ML 100 ML IV SCH (09:00)
[2023-12-25] MEDS: ENOXAPARIN SOD 40 MG/0.4 ML SYRINGE SC SCH (09:21)
[2023-12-25] MEDS: HYDROCORTISONE SOD SUCC 100 MG/2ML INJ VIAL IV SCH (09:21)
[2023-12-25] MEDS: PANTOPRAZOLE 40 MG/10 ML VIAL INJ IV SCH (09:21)
[2023-12-25] MEDS: POTASSIUM CHL 20MEQ/100ML 100 ML IV SCH (09:22)
[2023-12-25] MEDS: PIPERACILLIN-TAZOB 3.375GM 100 ML IV SCH (09:30)
[2023-12-25] MEDS: IOHEXOL 350 MG/ML 100ML IJ ONE ×2 (10:07→12:50)
[2023-12-25 10:15] LABS: INR 1.09 (0.9-1.15); Partial Thromboplastin Time 30.5 SEC (24.5-34.5); Prothrombin Time 11.5 sec (9.3-11.8)
[2023-12-25 10:29] LABS: Folate (Folic Acid) 18.03 ng/mL (>5.38)
[2023-12-25 10:30] LABS: Free T3 1.12 pg/mL (2.3-4.2)
[2023-12-25 10:31] LABS: Free T4 (Free Thyroxine) 0.83 ng/dL (0.89-1.76)
[2023-12-25] MEDS: acetaZOLAMIDE SODIUM 500 MG VL IV ONE ×3 (10:43→21:52)
[2023-12-25] MEDS ORDERED: PIPERACILLIN-TAZO 4.5GM 100 ML IV SCH (12:00)
[2023-12-25] MEDS: InsuLIN REG 1unit/0.01ml Soln (100units/ml) SC SCH (12:00)
[2023-12-25] MEDS: CALCIUM CHL 100MG/ML 1,000 MG in D5W 5% 100 ML IV ONE (12:19)
[2023-12-25] MEDS ORDERED: ALBUAER3 IN (12:19)
[2023-12-25] MEDS ORDERED: METF-370 PO (12:20)
[2023-12-25] MEDS: ACCU-CHEK COMFORT CURVE STRIP VI SCH (12:49)
[2023-12-25] MEDS: INSULIN LANTUS (GLARGINE) 1 /0.01ml (100units/ml) SC ONE (12:51)
[2023-12-25 13:46] LABS: Base Excess 16.5 mmol/L (-2.0-2.0)
[2023-12-25] MEDS: fentaNYL Drip 2500mCg/250mlNS 250 ML IV SCH (19:00)
[2023-12-25 19:05] LABS: Base Excess 13.1 mmol/L (-2.0-2.0)
[2023-12-25] MEDS ORDERED: CLINIMIX PER PHARMACY 0 ML IV SCH (21:30)
[2023-12-25] MEDS: AMINO ACID INFUSION IN D10W 1,000 ML IV ONE (23:29)
[2023-12-26] VITALS (112 sets, daily range): BP systolic 97–149; BP diastolic 49–80; PULSE 55–84; RESP 12–14; TEMP 96.4–98.2; O2SAT 92–100
[2023-12-26 03:48] LABS: Basophils # (auto) 0 10 ^3/uL (0-0.2); Basophils % (auto) 0.1 % (0.0-2.0); Eosinophils # (auto) 0 10 ^3/uL (0-0.8); Hematocrit 29.2 % (41.0-53.0); Hemoglobin 9.7 g/dL (13.5-17.5); Lymphocytes # (auto) 0.4 10 ^3/uL (0.4-5.4); Lymphocytes % (auto) 4.4 % (10.0-50.0); Mean Corpuscular Hemoglobin 33.2 pg (28.0-32.0); Mean Corpuscular Hgb Conc. 33.1 g/dL (32.0-36.0); Mean Corpuscular Volume 100.2 fL (80.0-100.0); Monocytes # (auto) 0.7 10 ^3/uL (0-1.3); Monocytes % (auto) 8.3 % (0.0-12.0); Neutrophils # (auto) 7.4 10 ^3/uL (1.6-8.6); Neutrophils % (auto) 87.2 % (37.0-80.0); Nucleated Red Blood Cells % 0.1 %; Platelet Count (auto) 238 10^3/uL (140-450); Red Blood Cells 2.91 10^6/uL (4.5-5.90); Red Cell Distribution Width 14.3 % (11.8-14.3); White Blood Cell 8.4 10^3/uL (4.4-10.8)
[2023-12-26 04:07] LABS: Albumin 2.7 g/dL (3.2-4.8); Alkaline Phosphatase 44 U/L (46-116); Anion Gap 5 (5-15); Aspartate Aminotransferase 11 U/L (13-40); BUN/Creatinine Ratio 25.3 (10.0-20.0); Blood Urea Nitrogen 23 mg/dL (9-23); Calcium 6.8 mg/dL (8.7-10.4); Carbon Dioxide 37 mmol/L (20-30); Chloride 102 mmol/L (98-107); Potassium 2.6 mmol/L (3.5-5.1); Sodium 144 mmol/L (136-145); Triglycerides 139 mg/dL (< 150)
[2023-12-26 04:08] LABS: Bilirubin, Total < 0.2 mg/dL (0.2-1.0); Phosphorus 2.4 mg/dL (2.4-5.1); Total Protein 5.3 g/dL (5.7-8.2)
[2023-12-26 04:12] LABS: Alanine Aminotransferase < 9 U/L (7-40); Glucose 143 mg/dL (74-106)
[2023-12-26] MEDS: POTASSIUM CHL 20MEQ/100ML 100 ML IV SCH (06:03)
[2023-12-26] MEDS: INSULIN LANTUS (GLARGINE) 1 /0.01ml (100units/ml) SC SCH (06:56)
[2023-12-26 07:46] LABS: Base Excess 12.1 mmol/L (-2.0-2.0)
[2023-12-26] MEDS ORDERED: DEXTROSE (50%) 50ML SYRG IV SCH (08:15)
[2023-12-26] MEDS: ACCU-CHEK COMFORT CURVE STRIP VI SCH ×2 (09:00→11:07)
[2023-12-26] MEDS: AZITHROMYCIN 500MG/ 250ML 250 ML IV ONE (09:06)
[2023-12-26] MEDS: InsuLIN REG 1unit/0.01ml Soln (100units/ml) SC SCH (11:12)
[2023-12-26] MEDS: acetaZOLAMIDE SODIUM 500 MG VL IV ONE (11:49)
[2023-12-26] MEDS ORDERED: InsuLIN REG 1unit/0.01ml Soln (100units/ml) SC SCH (12:00)
[2023-12-26 13:29] LABS: Chloride 102 mmol/L (98-107); Potassium 3.4 mmol/L (3.5-5.1); Sodium 142 mmol/L (136-145)
[2023-12-26 13:30] LABS: Anion Gap 4 (5-15); Calcium 6.5 mg/dL (8.7-10.4); Carbon Dioxide 36 mmol/L (20-30)
[2023-12-26 13:33] LABS: Basophils # (auto) 0 10 ^3/uL (0-0.2); Basophils % (auto) 0.1 % (0.0-2.0); Eosinophils # (auto) 0 10 ^3/uL (0-0.8); Hemoglobin 9.8 g/dL (13.5-17.5); Lymphocytes # (auto) 0.4 10 ^3/uL (0.4-5.4); Lymphocytes % (auto) 4.1 % (10.0-50.0); Mean Corpuscular Hemoglobin 32.8 pg (28.0-32.0); Mean Corpuscular Hgb Conc. 32.8 g/dL (32.0-36.0); Monocytes # (auto) 0.7 10 ^3/uL (0-1.3); Monocytes % (auto) 6.8 % (0.0-12.0); Neutrophils # (auto) 8.7 10 ^3/uL (1.6-8.6); Platelet Count (auto) 249 10^3/uL (140-450); Red Cell Distribution Width 14.4 % (11.8-14.3); White Blood Cell 9.8 10^3/uL (4.4-10.8)
[2023-12-26 13:35] LABS: BUN/Creatinine Ratio 27.5 (10.0-20.0); Blood Urea Nitrogen 28 mg/dL (9-23); Glucose 142 mg/dL (74-106)
[2023-12-26] MEDS: POTASSIUM CHL 20MEQ/100ML 100 ML IV ONE (14:27)
[2023-12-26] MEDS: POTASSIUM EFFERVESENT TAB 25 MEQ GT ONE (15:13)
[2023-12-27] VITALS (116 sets, daily range): BP systolic 110–163; BP diastolic 40–86; PULSE 52–78; RESP 13–26; TEMP 97–98.8; O2SAT 97–100
[2023-12-27 04:10] LABS: Basophils # (auto) 0 10 ^3/uL (0-0.2); Basophils % (auto) 0.1 % (0.0-2.0); Eosinophils # (auto) 0 10 ^3/uL (0-0.8); Hematocrit 31.3 % (41.0-53.0); Hemoglobin 10.5 g/dL (13.5-17.5); Lymphocytes # (auto) 0.3 10 ^3/uL (0.4-5.4); Lymphocytes % (auto) 4.3 % (10.0-50.0); Mean Corpuscular Hemoglobin 33.3 pg (28.0-32.0); Mean Corpuscular Hgb Conc. 33.5 g/dL (32.0-36.0); Mean Corpuscular Volume 99.1 fL (80.0-100.0); Monocytes # (auto) 0.5 10 ^3/uL (0-1.3); Monocytes % (auto) 6.1 % (0.0-12.0); Neutrophils % (auto) 89.5 % (37.0-80.0); Nucleated Red Blood Cells % 0.1 %; Platelet Count (auto) 258 10^3/uL (140-450); Red Blood Cells 3.16 10^6/uL (4.5-5.90); Red Cell Distribution Width 14.5 % (11.8-14.3); White Blood Cell 7.8 10^3/uL (4.4-10.8)
[2023-12-27 04:38] LABS: Albumin 2.9 g/dL (3.2-4.8); Alkaline Phosphatase 45 U/L (46-116); Anion Gap 8 (5-15); Aspartate Aminotransferase 11 U/L (13-40); BUN/Creatinine Ratio 23.4 (10.0-20.0); Bilirubin, Total 0.2 mg/dL (0.2-1.0); Blood Urea Nitrogen 25 mg/dL (9-23); Calcium 6.4 mg/dL (8.7-10.4); Carbon Dioxide 32 mmol/L (20-30); Chloride 101 mmol/L (98-107); Glucose 122 mg/dL (74-106); Sodium 141 mmol/L (136-145); Total Protein 5.7 g/dL (5.7-8.2)
[2023-12-27 04:45] LABS: Alanine Aminotransferase < 9 U/L (7-40)
[2023-12-27] MEDS: CALCIUM GLUC 1,000mg/50ml-NS 50 ML IV ONE (05:50)
[2023-12-27] MEDS: POTASSIUM CHL 20MEQ/100ML 100 ML IV SCH ×2 (05:51→17:22)
[2023-12-27] MEDS: AZITHROMYCIN 500MG/ 250ML 250 ML IV SCH (07:09)
[2023-12-27 07:40] LABS: Base Excess 7.1 mmol/L (-2.0-2.0)
[2023-12-27] MEDS: POTASSIUM CHL 20MEQ/100ML 100 ML IV ONE (09:36)
[2023-12-27] MEDS ORDERED: acetaZOLAMIDE SODIUM 500 MG VL IV SCH (10:00)
[2023-12-27] MEDS ORDERED: POTASSIUM EFFERVESENT TAB 25 MEQ GT SCH (10:00)
[2023-12-27 15:11] LABS: Anion Gap 7 (5-15); Carbon Dioxide 30 mmol/L (20-30); Chloride 102 mmol/L (98-107); Potassium 3.5 mmol/L (3.5-5.1); Sodium 139 mmol/L (136-145)
[2023-12-27 15:12] LABS: Calcium 6.3 mg/dL (8.7-10.4)
[2023-12-27 15:17] LABS: BUN/Creatinine Ratio 24.5 (10.0-20.0); Blood Urea Nitrogen 27 mg/dL (9-23); Glucose 182 mg/dL (74-106)
[2023-12-27 15:33] LABS: Base Excess 6.6 mmol/L (-2.0-2.0)
[2023-12-27] MEDS ORDERED: CALCIUM W/VIT D (600MG/400IU) TAB PO ONE (16:45)
[2023-12-27] MEDS: Glucerna 1.2 Cal 1Liter BOTTLE GT SCH (17:00)
[2023-12-27] MEDS: CALCIUM W/VIT D (600MG/400IU) TAB PO SCH (17:23)
[2023-12-28] VITALS (116 sets, daily range): BP systolic 100–176; BP diastolic 52–95; PULSE 54–97; RESP 9–28; TEMP 97.3–98.4; O2SAT 96–100
[2023-12-28] MEDS: hydrALAZINE HCL 20 MG/ML VL IV PRN (03:16)
[2023-12-28 03:31] LABS: Basophils # (auto) 0 10 ^3/uL (0-0.2); Basophils % (auto) 0.1 % (0.0-2.0); Eosinophils # (auto) 0 10 ^3/uL (0-0.8); Eosinophils % (auto) 0.2 % (0.0-7.0); Hematocrit 31.4 % (41.0-53.0); Hemoglobin 10.6 g/dL (13.5-17.5); Lymphocytes # (auto) 0.3 10 ^3/uL (0.4-5.4); Lymphocytes % (auto) 4.6 % (10.0-50.0); Mean Corpuscular Hemoglobin 33.3 pg (28.0-32.0); Mean Corpuscular Hgb Conc. 33.8 g/dL (32.0-36.0); Mean Corpuscular Volume 98.5 fL (80.0-100.0); Monocytes # (auto) 0.4 10 ^3/uL (0-1.3); Monocytes % (auto) 5.1 % (0.0-12.0); Neutrophils # (auto) 6.2 10 ^3/uL (1.6-8.6); Nucleated Red Blood Cells % 0.1 %; Platelet Count (auto) 248 10^3/uL (140-450); Red Blood Cells 3.18 10^6/uL (4.5-5.90); Red Cell Distribution Width 14.4 % (11.8-14.3); White Blood Cell 6.8 10^3/uL (4.4-10.8)
[2023-12-28 03:51] LABS: Alkaline Phosphatase 44 U/L (46-116); Anion Gap 10 (5-15); BUN/Creatinine Ratio 23.1 (10.0-20.0); Blood Urea Nitrogen 25 mg/dL (9-23); Calcium 6.6 mg/dL (8.7-10.4); Carbon Dioxide 27 mmol/L (20-30); Chloride 102 mmol/L (98-107); Glucose 129 mg/dL (74-106); Potassium 2.8 mmol/L (3.5-5.1); Sodium 139 mmol/L (136-145)
[2023-12-28 03:52] LABS: Aspartate Aminotransferase 14 U/L (13-40); Bilirubin, Total 0.3 mg/dL (0.2-1.0); Total Protein 5.8 g/dL (5.7-8.2)
[2023-12-28 03:55] LABS: Alanine Aminotransferase < 9 U/L (7-40)
[2023-12-28] MEDS: POTASSIUM EFFERVESENT TAB 25 MEQ GT ONE ×2 (05:09→20:19)
[2023-12-28 07:48] LABS: Potassium 2.5 mmol/L (3.5-5.1)
[2023-12-28] MEDS: POTASSIUM CHL 20MEQ/100ML 100 ML IV SCH (08:45)
[2023-12-28] MEDS: ENOXAPARIN SOD 100 MG/1 ML SYRINGE SC SCH (08:45)
[2023-12-28 09:43] LABS: Base Excess 1.9 mmol/L (-2.0-2.0)
[2023-12-28] MEDS: VANCOMYCIN 500 MG in D5W 5% 100 ML IV ONE (09:46)
[2023-12-28 14:47] LABS: Chloride 104 mmol/L (98-107); Potassium 3.4 mmol/L (3.5-5.1); Sodium 138 mmol/L (136-145)
[2023-12-28 14:48] LABS: Anion Gap 7 (5-15); Carbon Dioxide 27 mmol/L (20-30)
[2023-12-28 14:49] LABS: Calcium 6.4 mg/dL (8.7-10.4)
[2023-12-28 14:53] LABS: BUN/Creatinine Ratio 26.7 (10.0-20.0); Blood Urea Nitrogen 27 mg/dL (9-23); Glucose 147 mg/dL (74-106)
[2023-12-28] MEDS: POTASSIUM CHL 20MEQ/100ML 100 ML IV ONE (15:38)
[2023-12-28] MEDS: ALBUTEROL SULF 2.5 MG/0.5ML(0.5%) NEB SOLN NEB PRN (20:27)
[2023-12-28] MEDS: ACETYLCYSTEINE 10 %(100MG/ML) SOL 4ML NEB ONE (20:27)
[2023-12-28] MEDS: IPRATROPIUM BROM 0.5 MG/2.5ML INH SOL NEB PRN (20:28)
[2023-12-28 21:09] LABS: Base Excess -0.6 mmol/L (-2.0-2.0)
[2023-12-28] MEDS: MAGNESIUM SULFATE 1GM/100ML 100 ML IV ONE (21:33)
[2023-12-28] MEDS: HYDROCORTISONE SOD SUCC 100 MG/2ML INJ VIAL IV SCH (21:51)
[2023-12-28] MEDS ORDERED: HYDROCORTISONE SOD SUCC 100 MG/2ML INJ VIAL IV SCH (22:00)
[2023-12-28] MEDS: ACETYLCYSTEINE 10 %(100MG/ML) SOL 4ML NEB SCH (22:30)
[2023-12-28 22:39] LABS: Basophils # (auto) 0 10 ^3/uL (0-0.2); Basophils % (auto) 0.1 % (0.0-2.0); Eosinophils # (auto) 0 10 ^3/uL (0-0.8); Eosinophils % (auto) 0.2 % (0.0-7.0); Hematocrit 32.9 % (41.0-53.0); Hemoglobin 11.1 g/dL (13.5-17.5); Lymphocytes % (auto) 13.6 % (10.0-50.0); Mean Corpuscular Hemoglobin 33.1 pg (28.0-32.0); Mean Corpuscular Hgb Conc. 33.8 g/dL (32.0-36.0); Monocytes # (auto) 0.6 10 ^3/uL (0-1.3); Monocytes % (auto) 8.8 % (0.0-12.0); Neutrophils # (auto) 5.5 10 ^3/uL (1.6-8.6); Neutrophils % (auto) 77.3 % (37.0-80.0); Nucleated Red Blood Cells % 0.1 %; Platelet Count (auto) 241 10^3/uL (140-450); Red Blood Cells 3.36 10^6/uL (4.5-5.90); Red Cell Distribution Width 14.8 % (11.8-14.3); White Blood Cell 7.1 10^3/uL (4.4-10.8)
[2023-12-28 22:51] LABS: Alanine Aminotransferase 11 U/L (7-40); Alkaline Phosphatase 43 U/L (46-116); Anion Gap 10 (5-15); BUN/Creatinine Ratio 24.3 (10.0-20.0); Blood Urea Nitrogen 25 mg/dL (9-23); Calcium 6.6 mg/dL (8.7-10.4); Carbon Dioxide 25 mmol/L (20-30); Chloride 103 mmol/L (98-107); Glucose 131 mg/dL (74-106); Potassium 3.7 mmol/L (3.5-5.1); Sodium 138 mmol/L (136-145)
[2023-12-28 22:52] LABS: Aspartate Aminotransferase 17 U/L (13-40); Bilirubin, Total 0.3 mg/dL (0.2-1.0); Total Protein 5.6 g/dL (5.7-8.2)
[2023-12-28 22:53] LABS: INR 1.13 (0.9-1.15); Partial Thromboplastin Time 36.5 SEC (24.5-34.5); Prothrombin Time 11.9 sec (9.3-11.8)
[2023-12-29] VITALS (121 sets, daily range): BP systolic 56–173; BP diastolic 25–91; PULSE 67–117; RESP 14–27; TEMP 97.2–98.4; O2SAT 76–100
[2023-12-29 03:52] LABS: Basophils # (auto) 0 10 ^3/uL (0-0.2); Basophils % (auto) 0.1 % (0.0-2.0); Eosinophils # (auto) 0 10 ^3/uL (0-0.8); Hematocrit 32.3 % (41.0-53.0); Hemoglobin 10.9 g/dL (13.5-17.5); Lymphocytes # (auto) 0.3 10 ^3/uL (0.4-5.4); Lymphocytes % (auto) 2.9 % (10.0-50.0); Mean Corpuscular Hemoglobin 33.5 pg (28.0-32.0); Mean Corpuscular Hgb Conc. 33.9 g/dL (32.0-36.0); Mean Corpuscular Volume 98.9 fL (80.0-100.0); Monocytes # (auto) 0.4 10 ^3/uL (0-1.3); Monocytes % (auto) 4.1 % (0.0-12.0); Neutrophils # (auto) 10.1 10 ^3/uL (1.6-8.6); Neutrophils % (auto) 92.9 % (37.0-80.0); Nucleated Red Blood Cells % 0.1 %; Platelet Count (auto) 259 10^3/uL (140-450); Red Blood Cells 3.26 10^6/uL (4.5-5.90); Red Cell Distribution Width 14.3 % (11.8-14.3); White Blood Cell 10.9 10^3/uL (4.4-10.8)
[2023-12-29 04:08] LABS: Alanine Aminotransferase 10 U/L (7-40); Alkaline Phosphatase 44 U/L (46-116); Anion Gap 12 (5-15); Aspartate Aminotransferase 18 U/L (13-40); BUN/Creatinine Ratio 22.4 (10.0-20.0); Blood Urea Nitrogen 26 mg/dL (9-23); Calcium 6.6 mg/dL (8.7-10.4); Carbon Dioxide 24 mmol/L (20-30); Chloride 101 mmol/L (98-107); Glucose 160 mg/dL (74-106); Magnesium 2.1 mg/dL (1.6-2.6); Potassium 3.8 mmol/L (3.5-5.1); Sodium 137 mmol/L (136-145)
[2023-12-29 04:09] LABS: Bilirubin, Total 0.2 mg/dL (0.2-1.0); Total Protein 5.9 g/dL (5.7-8.2)
[2023-12-29] MEDS: SODIUM CHLORIDE 0.9% 250 ML IV ONE (06:52)
[2023-12-29 07:29] LABS: Base Excess -6.3 mmol/L (-2.0-2.0)
[2023-12-29] MEDS: IOHEXOL 300 MG/ML 100ML BOTTLE IJ ONE ×2 (08:23→14:44)
[2023-12-29] MEDS: SODIUM CHLORIDE 0.9% 500 ML IV ONE (08:56)
[2023-12-29] MEDS: levETIRAcetam 500 MG/5ML ORAL SOLN UD GT SCH (08:56)
[2023-12-29] MEDS: POTASSIUM EFFERVESENT TAB 25 MEQ GT SCH (09:02)
[2023-12-29 09:23] LABS: Lactic Acid w/Reflex 2.4 mmol/L (0.4-2.0)
[2023-12-29 10:24] LABS: Base Excess -4.2 mmol/L (-2.0-2.0)
[2023-12-29] MEDS: SODIUM CHLORIDE 0.9% 1,000 ML IV SCH (10:29)
[2023-12-29] MEDS: VANCOMYCIN 500 MG in D5W 5% 100 ML IV ONE (11:00)
[2023-12-29] MEDS ORDERED: LIDOCAINE 2%HCL (LOCAL ANESTH.) INJ 20ML MDV ONE (12:53)
[2023-12-29] MEDS ORDERED: LIDOCAINE 2% JELLY 11ml (GLYDO) ONE (12:53)
[2023-12-29] MEDS ORDERED: EPINEPHrine HCL 1 MG/1 ML AMP ONE (12:54)
[2023-12-29] MEDS ORDERED: GLYCOPYRROLATE 0.2 MG/ML 1ML VIAL ONE (12:54)
[2023-12-29] MEDS: LIDOCAINE 1% (LOCAL ANESTH.) PF 5ml SDV ID ONE (13:45)
[2023-12-29] MEDS ORDERED: ACETYLCYSTEINE 10 %(100MG/ML) SOL 4ML NEB SCH (14:00)
[2023-12-29] MEDS: VANCOMYCIN 500MG RECTAL ENEMA IN 100ML/NS PR ONE (14:15)
[2023-12-29] MEDS: VALPROATE INJ 500 MG in SODIUM CHL 0.9% 100 ML IV ONE (15:00)
[2023-12-29] MEDS: metroNIDAZOLE 500MG/100ML 100 ML IV ONE (15:25)
[2023-12-29] MEDS: CALCIUM GLUC 1,000mg/50ml-NS 50 ML IV ONE (15:25)
[2023-12-29] MEDS: levETIRAcetam 500 mg/100ml 100 ML IV ONE (15:56)
[2023-12-29 16:44] LABS: Hematocrit 29.7 % (41.0-53.0); Hemoglobin 9.7 g/dL (13.5-17.5)
[2023-12-29] MEDS: ACETYLCYSTEINE 10 %(100MG/ML) SOL 4ML NEB PRN (18:48)
[2023-12-29] MEDS: VANCOMYCIN 500MG RECTAL ENEMA IN 100ML/NS PR SCH (20:13)
[2023-12-29 21:28] LABS: Hematocrit 26.9 % (41.0-53.0)
[2023-12-29 21:36] LABS: Chloride 104 mmol/L (98-107); Potassium 3.6 mmol/L (3.5-5.1); Sodium 139 mmol/L (136-145)
[2023-12-29 21:37] LABS: Anion Gap 8 (5-15); Calcium 6.4 mg/dL (8.7-10.4); Carbon Dioxide 27 mmol/L (20-30)
[2023-12-29 21:42] LABS: BUN/Creatinine Ratio 20.1 (10.0-20.0); Blood Urea Nitrogen 27 mg/dL (9-23); Glucose 117 mg/dL (74-106)
[2023-12-29] MEDS: SODIUM CHLOR 0.9% PF (SALINE LOCK) 10ML VIAL/SYR IV SCH (22:00)
[2023-12-29] MEDS: VALPROATE INJ 500 MG in SODIUM CHL 0.9% 100 ML IV SCH (22:01)
[2023-12-29] MEDS: levETIRAcetam 500 mg/100ml 100 ML IV SCH (22:02)
[2023-12-29] MEDS: metroNIDAZOLE 500MG/100ML 100 ML IV SCH (22:02)
[2023-12-30] VITALS (110 sets, daily range): BP systolic 82–166; BP diastolic 47–90; PULSE 55–99; RESP 13–17; TEMP 97.5–98.3; O2SAT 66–100
[2023-12-30 01:33] LABS: Urine Amorphous Crystal FEW /hpf (None Seen); Urine Bacteria FEW /hpf (None Seen); Urine Blood 3+ /uL (Negative); Urine Clarity Ex.Turbid (Clear); Urine Protein, UAD 1+ (Negative); Urine Specific Gravity 1.024 (1.001-1.035); Urine Urobilinogen Normal (Negative); Urine WBC 21 /hpf (0 - 3); Urine pH 5.5 (5.0-9.0)
[2023-12-30 01:34] LABS: Urine Color Orange (Yellow)
[2023-12-30 04:52] LABS: Basophils # (auto) 0 10 ^3/uL (0-0.2); Basophils % (auto) 0.1 % (0.0-2.0); Eosinophils # (auto) 0 10 ^3/uL (0-0.8); Hematocrit 26.3 % (41.0-53.0); Hemoglobin 8.7 g/dL (13.5-17.5); Lymphocytes # (auto) 0.6 10 ^3/uL (0.4-5.4); Lymphocytes % (auto) 5.8 % (10.0-50.0); Mean Corpuscular Hemoglobin 32.6 pg (28.0-32.0); Mean Corpuscular Hgb Conc. 33.3 g/dL (32.0-36.0); Mean Corpuscular Volume 98.1 fL (80.0-100.0); Monocytes # (auto) 0.6 10 ^3/uL (0-1.3); Monocytes % (auto) 5.8 % (0.0-12.0); Neutrophils # (auto) 9.7 10 ^3/uL (1.6-8.6); Neutrophils % (auto) 88.3 % (37.0-80.0); Nucleated Red Blood Cells % 0.1 %; Platelet Count (auto) 321 10^3/uL (140-450); Red Blood Cells 2.68 10^6/uL (4.5-5.90); Red Cell Distribution Width 14.5 % (11.8-14.3)
[2023-12-30 05:07] LABS: Alkaline Phosphatase 37 U/L (46-116); Anion Gap 8 (5-15); BUN/Creatinine Ratio 18.2 (10.0-20.0); Blood Urea Nitrogen 24 mg/dL (9-23); Calcium 6.2 mg/dL (8.7-10.4); Carbon Dioxide 26 mmol/L (20-30); Chloride 104 mmol/L (98-107); Glucose 95 mg/dL (74-106); Magnesium 1.9 mg/dL (1.6-2.6); Potassium 3.8 mmol/L (3.5-5.1); Sodium 138 mmol/L (136-145)
[2023-12-30] MEDS: IOHEXOL 350 MG/ML 100ML IJ ONE (05:07)
[2023-12-30 05:08] LABS: Albumin 2.7 g/dL (3.2-4.8); Aspartate Aminotransferase 16 U/L (13-40); Bilirubin, Total 0.2 mg/dL (0.2-1.0); Phosphorus 4.9 mg/dL (2.4-5.1); Total Protein 5.2 g/dL (5.7-8.2)
[2023-12-30 05:13] LABS: Alanine Aminotransferase < 9 U/L (7-40)
[2023-12-30] MEDS: CALCIUM GLUC 1,000mg/50ml-NS 50 ML IV SCH ×2 (09:14→15:53)
[2023-12-30] MEDS ORDERED: CLINIMIX PER PHARMACY 0 ML IV SCH (10:00)
[2023-12-30] MEDS: VALPROATE INJ 500 MG in SODIUM CHL 0.9% 100 ML IV SCH (10:30)
[2023-12-30] MEDS: LORazepam 2MG/ML-1ML VIAL IV PRN (12:00)
[2023-12-30 12:47] LABS: Hematocrit 20.9 % (41.0-53.0)
[2023-12-30] MEDS: NOREPINEPHRINE 8 MG/250ML KIT 250 ML IV SCH (12:54)
[2023-12-30] MEDS: VANCOMYCIN HCL 250 MG CAP PO ONE (14:30)
[2023-12-30 14:45] LABS: Albumin 2.2 g/dL (3.2-4.8); Alkaline Phosphatase 32 U/L (46-116); Anion Gap 7 (5-15); Aspartate Aminotransferase 15 U/L (13-40); BUN/Creatinine Ratio 17.2 (10.0-20.0); Blood Urea Nitrogen 17 mg/dL (9-23); Carbon Dioxide 23 mmol/L (20-30); Chloride 110 mmol/L (98-107); Glucose 96 mg/dL (74-106); Potassium 3.9 mmol/L (3.5-5.1); Sodium 140 mmol/L (136-145)
[2023-12-30] MEDS: CALCITRIOL 0.25 MCG CAP PO ONE (14:45)
[2023-12-30 14:46] LABS: Bilirubin, Total 0.2 mg/dL (0.2-1.0); Total Protein 4.1 g/dL (5.7-8.2)
[2023-12-30 15:06] LABS: Alanine Aminotransferase < 9 U/L (7-40)
[2023-12-30 15:08] LABS: Calcium 5.7 mg/dL (8.7-10.4)
[2023-12-30] MEDS: levETIRAcetam 500 mg/100ml 100 ML IV ONE (15:24)
[2023-12-30] MEDS: VALPROATE INJ 500 MG in SODIUM CHL 0.9% 100 ML IV ONE (15:46)
[2023-12-30] MEDS ORDERED: VANCOMYCIN HCL 250 MG CAP PO SCH (18:00)
[2023-12-30] MEDS: VANCOMYCIN HCL 500MG/5ML ORAL SOL GT SCH (18:48)
[2023-12-30 19:48] LABS: Hematocrit 24.4 % (41.0-53.0); Hemoglobin 8.3 g/dL (13.5-17.5)
[2023-12-30] MEDS: ATORVASTATIN 20 MG TAB PO SCH (22:18)
[2023-12-30] MEDS: levETIRAcetam 1000 mg/100ml 100 ML IV SCH (22:19)
[2023-12-30] MEDS: HYDROCORTISONE SOD SUCC 100 MG/2ML INJ VIAL IV SCH (22:24)
[2023-12-30] MEDS: CHOLECALCIFEROL (VITD3) 1,000UNIT=25mCg TAB PO ONE (22:47)
[2023-12-31] VITALS (95 sets, daily range): BP systolic 93–171; BP diastolic 52–97; PULSE 55–107; RESP 11–31; TEMP 97.5–98.5; O2SAT 93–100
[2023-12-31 03:59] LABS: Basophils # (auto) 0 10 ^3/uL (0-0.2); Eosinophils # (auto) 0 10 ^3/uL (0-0.8); Hematocrit 25.5 % (41.0-53.0); Hemoglobin 8.8 g/dL (13.5-17.5); Lymphocytes # (auto) 0.5 10 ^3/uL (0.4-5.4); Lymphocytes % (auto) 5.6 % (10.0-50.0); Mean Corpuscular Hemoglobin 33.7 pg (28.0-32.0); Mean Corpuscular Hgb Conc. 34.5 g/dL (32.0-36.0); Mean Corpuscular Volume 97.5 fL (80.0-100.0); Monocytes # (auto) 0.7 10 ^3/uL (0-1.3); Monocytes % (auto) 7.4 % (0.0-12.0); Neutrophils # (auto) 7.7 10 ^3/uL (1.6-8.6); Platelet Count (auto) 194 10^3/uL (140-450); Red Blood Cells 2.61 10^6/uL (4.5-5.90); White Blood Cell 8.8 10^3/uL (4.4-10.8)
[2023-12-31 04:11] LABS: Alanine Aminotransferase 11 U/L (7-40); Alkaline Phosphatase 38 U/L (46-116); Anion Gap 7 (5-15); Aspartate Aminotransferase 19 U/L (13-40); Blood Urea Nitrogen 20 mg/dL (9-23); Calcium 6.5 mg/dL (8.7-10.4); Carbon Dioxide 26 mmol/L (20-30); Chloride 108 mmol/L (98-107); Glucose 95 mg/dL (74-106); Magnesium 1.8 mg/dL (1.6-2.6); Potassium 4.1 mmol/L (3.5-5.1); Sodium 141 mmol/L (136-145)
[2023-12-31 04:12] LABS: Albumin 2.6 g/dL (3.2-4.8); Bilirubin, Total 0.3 mg/dL (0.2-1.0); Total Protein 4.8 g/dL (5.7-8.2)
[2023-12-31 06:57] LABS: Base Excess -1.5 mmol/L (-2.0-2.0)
[2023-12-31] MEDS ORDERED: CALCIUM GLUC 1,000mg/50ml-NS 50 ML IV SCH ×2 (07:15→09:15)
[2023-12-31] MEDS: CALCIUM GLUC 1,000mg/50ml-NS 50 ML IV SCH (07:18)
[2023-12-31] MEDS ORDERED: CALCITRIOL 0.25 MCG CAP PO SCH (10:00)
[2023-12-31] MEDS: CHOLECALCIFEROL (VITD3) 1,000UNIT=25mCg TAB PO SCH (10:13)
[2023-12-31 10:24] LABS: Base Excess -2.8 mmol/L (-2.0-2.0)
[2023-12-31] MEDS: ASPirin 81 mg TAB PO SCH (10:38)
[2023-12-31] MEDS: CALCITRIOL 0.25 MCG CAP PO SCH (10:40)
[2023-12-31 15:24] LABS: Calcium 6.9 mg/dL (8.7-10.4); Chloride 107 mmol/L (98-107); Potassium 4.6 mmol/L (3.5-5.1); Sodium 140 mmol/L (136-145)
[2023-12-31 15:25] LABS: Anion Gap 6 (5-15); Carbon Dioxide 27 mmol/L (20-30)
[2023-12-31 15:30] LABS: BUN/Creatinine Ratio 21.4 (10.0-20.0); Blood Urea Nitrogen 21 mg/dL (9-23); Glucose 92 mg/dL (74-106)
[2023-12-31] MEDS: VANCOMYCIN 500MG RECTAL ENEMA IN 100ML/NS PR SCH (23:13)
[2023-12-31] MEDS: DEXTROSE (50%) 50ML SYRG IV PRN (23:14)
[2024-01-01] VITALS (57 sets, daily range): BP systolic 114–174; BP diastolic 55–108; PULSE 88–117; RESP 12–32; TEMP 98.2–98.6; O2SAT 84–100
[2024-01-01] MEDS: CALCIUM GLUC 1,000mg/50ml-NS 50 ML IV SCH ×2 (00:40→11:43)
[2024-01-01 06:43] LABS: Basophils # (auto) 0 10 ^3/uL (0-0.2); Basophils % (auto) 0.2 % (0.0-2.0); Eosinophils # (auto) 0 10 ^3/uL (0-0.8); Hematocrit 28.4 % (41.0-53.0); Hemoglobin 9.5 g/dL (13.5-17.5); Lymphocytes # (auto) 0.9 10 ^3/uL (0.4-5.4); Lymphocytes % (auto) 6.7 % (10.0-50.0); Mean Corpuscular Hemoglobin 32.8 pg (28.0-32.0); Mean Corpuscular Hgb Conc. 33.4 g/dL (32.0-36.0); Mean Corpuscular Volume 98.2 fL (80.0-100.0); Monocytes # (auto) 1.4 10 ^3/uL (0-1.3); Monocytes % (auto) 10.2 % (0.0-12.0); Neutrophils % (auto) 82.9 % (37.0-80.0); Platelet Count (auto) 279 10^3/uL (140-450); Red Blood Cells 2.89 10^6/uL (4.5-5.90); Red Cell Distribution Width 15.3 % (11.8-14.3); White Blood Cell 13.2 10^3/uL (4.4-10.8)
[2024-01-01 07:00] LABS: Alanine Aminotransferase 14 U/L (7-40); Albumin 2.9 g/dL (3.2-4.8); Alkaline Phosphatase 44 U/L (46-116); Anion Gap 7 (5-15); Aspartate Aminotransferase 23 U/L (13-40); BUN/Creatinine Ratio 21.8 (10.0-20.0); Bilirubin, Total 0.2 mg/dL (0.2-1.0); Blood Urea Nitrogen 19 mg/dL (9-23); Carbon Dioxide 26 mmol/L (20-30); Chloride 108 mmol/L (98-107); Glucose 90 mg/dL (74-106); Magnesium 1.6 mg/dL (1.6-2.6); Potassium 3.9 mmol/L (3.5-5.1); Sodium 141 mmol/L (136-145); Total Protein 5.3 g/dL (5.7-8.2)
[2024-01-01] MEDS: hydrALAZINE HCL 20 MG/ML VL IV ONE (08:49)
[2024-01-01] MEDS: D5W/SOD CHL 0.45% 1,000 ML IV SCH (10:49)
[2024-01-01] MEDS: ENOXAPARIN SOD 40 MG/0.4 ML SYRINGE SC ONE (11:40)
[2024-01-01] MEDS: MAGNESIUM SULFATE 1GM/100ML 100 ML IV SCH (11:42)
[2024-01-01] MEDS: CALCIUM GLUC 1,000mg/50ml-NS 100 ML IV ONE (21:58)
[2024-01-02] VITALS (50 sets, daily range): BP systolic 101–172; BP diastolic 65–104; PULSE 71–121; RESP 15–36; TEMP 98–98.9; O2SAT 96–100
[2024-01-02 04:06] LABS: Basophils # (auto) 0 10 ^3/uL (0-0.2); Basophils % (auto) 0.1 % (0.0-2.0); Eosinophils # (auto) 0.2 10 ^3/uL (0-0.8); Eosinophils % (auto) 1.6 % (0.0-7.0); Hematocrit 25.9 % (41.0-53.0); Hemoglobin 8.6 g/dL (13.5-17.5); Lymphocytes # (auto) 1.3 10 ^3/uL (0.4-5.4); Lymphocytes % (auto) 10.3 % (10.0-50.0); Mean Corpuscular Hemoglobin 32.6 pg (28.0-32.0); Mean Corpuscular Hgb Conc. 33.2 g/dL (32.0-36.0); Monocytes # (auto) 1.8 10 ^3/uL (0-1.3); Monocytes % (auto) 14.2 % (0.0-12.0); Neutrophils # (auto) 9.1 10 ^3/uL (1.6-8.6); Neutrophils % (auto) 73.8 % (37.0-80.0); Platelet Count (auto) 286 10^3/uL (140-450); Red Blood Cells 2.64 10^6/uL (4.5-5.90); Red Cell Distribution Width 14.9 % (11.8-14.3); White Blood Cell 12.4 10^3/uL (4.4-10.8)
[2024-01-02 04:24] LABS: Alanine Aminotransferase 13 U/L (7-40); Albumin 2.7 g/dL (3.2-4.8); Alkaline Phosphatase 40 U/L (46-116); Anion Gap 9 (5-15); BUN/Creatinine Ratio 18.8 (10.0-20.0); Blood Urea Nitrogen 15 mg/dL (9-23); Calcium 7.3 mg/dL (8.7-10.4); Carbon Dioxide 25 mmol/L (20-30); Chloride 105 mmol/L (98-107); Glucose 147 mg/dL (74-106); Potassium 3.2 mmol/L (3.5-5.1); Sodium 139 mmol/L (136-145)
[2024-01-02 04:25] LABS: Aspartate Aminotransferase 28 U/L (13-40); Bilirubin, Total 0.3 mg/dL (0.2-1.0); Total Protein 4.9 g/dL (5.7-8.2)
[2024-01-02] MEDS ORDERED: CLINIMIX PER PHARMACY 0 ML IV SCH (08:15)
[2024-01-02] MEDS: POTASSIUM CHL 20MEQ/100ML 100 ML IV SCH (11:03)
[2024-01-02] MEDS: ENOXAPARIN SOD 40 MG/0.4 ML SYRINGE SC SCH (11:04)
[2024-01-02] MEDS: ACCU-CHEK COMFORT CURVE STRIP VI SCH (11:39)
[2024-01-02] MEDS: InsuLIN REG 1unit/0.01ml Soln (100units/ml) SC SCH (11:52)
[2024-01-02] MEDS: AMIODARONE HCL 200 MG TAB PO ONE (14:00)
[2024-01-02] MEDS: VANCOMYCIN HCL 500MG/5ML ORAL SOL NG ONE (18:37)
[2024-01-02] MEDS ORDERED: AMINO ACID INFUSION IN D10W 1,000 ML IV SCH (20:00)
[2024-01-02] MEDS: VANCOMYCIN HCL 250 MG CAP PO ONE (20:14)
[2024-01-02] MEDS: FUROSEMIDE 20 MG/2 ML VIAL IV SCH (21:42)
[2024-01-02] MEDS: VANCOMYCIN HCL 500MG/5ML ORAL SOL PO SCH (21:43)
[2024-01-03] VITALS (39 sets, daily range): BP systolic 125–159; BP diastolic 58–105; PULSE 73–109; RESP 18–31; TEMP 97.8–98.3; O2SAT 85–100
[2024-01-03] MEDS: ALBUTEROL SULF 2.5 MG/0.5ML(0.5%) NEB SOLN NEB PRN (03:11)
[2024-01-03] MEDS: IPRATROPIUM BROM 0.5 MG/2.5ML INH SOL NEB PRN (03:11)
[2024-01-03] MEDS: ACETYLCYSTEINE 10 %(100MG/ML) SOL 4ML NEB PRN (03:22)
[2024-01-03 03:55] LABS: Basophils # (auto) 0 10 ^3/uL (0-0.2); Basophils % (auto) 0.1 % (0.0-2.0); Eosinophils # (auto) 0.3 10 ^3/uL (0-0.8); Eosinophils % (auto) 2.2 % (0.0-7.0); Mean Corpuscular Volume 98.6 fL (80.0-100.0); Monocytes # (auto) 1.6 10 ^3/uL (0-1.3); Nucleated Red Blood Cells % 0.1 %
[2024-01-03 03:58] LABS: Hematocrit 22.4 % (41.0-53.0); Hemoglobin 7.7 g/dL (13.5-17.5); Lymphocytes # (auto) 0.8 10 ^3/uL (0.4-5.4); Lymphocytes % (auto) 6.9 % (10.0-50.0); Mean Corpuscular Hemoglobin 33.9 pg (28.0-32.0); Mean Corpuscular Hgb Conc. 34.3 g/dL (32.0-36.0); Monocytes % (auto) 13.5 % (0.0-12.0); Neutrophils % (auto) 77.3 % (37.0-80.0); Platelet Count (auto) 244 10^3/uL (140-450); Red Blood Cells 2.27 10^6/uL (4.5-5.90); Red Cell Distribution Width 15.5 % (11.8-14.3); White Blood Cell 11.7 10^3/uL (4.4-10.8)
[2024-01-03 03:59] LABS: Alanine Aminotransferase 11 U/L (7-40); Albumin 2.5 g/dL (3.2-4.8); Alkaline Phosphatase 37 U/L (46-116); Anion Gap 8 (5-15); Aspartate Aminotransferase 17 U/L (13-40); BUN/Creatinine Ratio 13.9 (10.0-20.0); Blood Urea Nitrogen 11 mg/dL (9-23); Calcium 6.9 mg/dL (8.7-10.4); Carbon Dioxide 27 mmol/L (20-30); Chloride 107 mmol/L (98-107); Glucose 128 mg/dL (74-106); Magnesium 1.7 mg/dL (1.6-2.6); Potassium 3.1 mmol/L (3.5-5.1); Sodium 142 mmol/L (136-145)
[2024-01-03 04:00] LABS: Bilirubin, Total 0.4 mg/dL (0.2-1.0); Total Protein 4.8 g/dL (5.7-8.2)
[2024-01-03] MEDS: KETOROLAC TROMETH 30 MG/ML 1ML VIAL IM ONE ×2 (05:31→19:39)
[2024-01-03] MEDS: POTASSIUM CHL 20MEQ/100ML 100 ML IV SCH (06:31)
[2024-01-03] MEDS: AMIODARONE HCL 200 MG TAB PO SCH (09:38)
[2024-01-03] MEDS: VANCOMYCIN 500MG RECTAL ENEMA IN 100ML/NS PR SCH (18:24)
[2024-01-03 18:51] LABS: Urine Bacteria FEW /hpf (None Seen); Urine Blood Negative /uL (Negative); Urine Clarity Turbid (Clear); Urine Color Light-Yellow (Yellow); Urine Hyaline Cast FEW /lpf (0 - 2); Urine Mucus FEW (None Seen); Urine Protein, UAD Negative (Negative); Urine Specific Gravity 1.014 (1.001-1.035); Urine Urobilinogen Normal (Negative); Urine WBC 5 /hpf (0 - 3)
[2024-01-03] MEDS: FUROSEMIDE 40 MG/4 ML VIAL IV SCH (21:47)
[2024-01-04] VITALS (42 sets, daily range): BP systolic 92–184; BP diastolic 45–95; PULSE 87–131; RESP 16–29; TEMP 98.2–98.3; O2SAT 86–100
[2024-01-04 04:04] LABS: Chloride 109 mmol/L (98-107); Potassium 3.8 mmol/L (3.5-5.1); Sodium 143 mmol/L (136-145)
[2024-01-04 04:05] LABS: Anion Gap 6 (5-15); Carbon Dioxide 28 mmol/L (20-30)
[2024-01-04 04:06] LABS: Calcium 7.1 mg/dL (8.7-10.4)
[2024-01-04 04:08] LABS: Hematocrit 25.3 % (41.0-53.0)
[2024-01-04 04:10] LABS: Blood Urea Nitrogen 10 mg/dL (9-23); Glucose 87 mg/dL (74-106)
[2024-01-04 04:11] LABS: Basophils # (auto) 0.1 10 ^3/uL (0-0.2); Basophils % (auto) 0.6 % (0.0-2.0); Eosinophils # (auto) 0.2 10 ^3/uL (0-0.8); Hemoglobin 8.3 g/dL (13.5-17.5); Lymphocytes # (auto) 1.1 10 ^3/uL (0.4-5.4); Lymphocytes % (auto) 9.5 % (10.0-50.0); Mean Corpuscular Hemoglobin 32.1 pg (28.0-32.0); Mean Corpuscular Hgb Conc. 32.8 g/dL (32.0-36.0); Mean Corpuscular Volume 97.9 fL (80.0-100.0); Monocytes # (auto) 1.4 10 ^3/uL (0-1.3); Monocytes % (auto) 12.1 % (0.0-12.0); Neutrophils # (auto) 8.9 10 ^3/uL (1.6-8.6); Neutrophils % (auto) 75.8 % (37.0-80.0); Platelet Count (auto) 215 10^3/uL (140-450); Red Blood Cells 2.58 10^6/uL (4.5-5.90); Red Cell Distribution Width 15.6 % (11.8-14.3); White Blood Cell 11.7 10^3/uL (4.4-10.8)
[2024-01-04] MEDS: ENOXAPARIN SOD 100 MG/1 ML SYRINGE SC ONE (12:44)
[2024-01-04] MEDS: LABETALOL HCL 20 MG/4 ML VL IV PRN (15:44)
[2024-01-04] MEDS: CALCIUM GLUC 1,000mg/50ml-NS 50 ML IV SCH ×2 (16:00→18:00)
[2024-01-04 18:01] LABS: Base Excess 2.2 mmol/L (-2.0-2.0)
[2024-01-04] MEDS: CALCIUM CHLOR(10%) 100MG/ML 10ML SYRINGE IV ONE (18:06)
[2024-01-04] MEDS: ENOXAPARIN SOD 100 MG/1 ML SYRINGE SC SCH (22:13)
[2024-01-04] MEDS: FUROSEMIDE 40 MG/4 ML VIAL IV SCH (22:31)
[2024-01-05] VITALS (36 sets, daily range): BP systolic 98–150; BP diastolic 54–84; PULSE 79–101; RESP 17–26; TEMP 98.1–98.3; O2SAT 93–100
[2024-01-05 03:53] LABS: Basophils # (auto) 0 10 ^3/uL (0-0.2); Eosinophils # (auto) 0.3 10 ^3/uL (0-0.8); Eosinophils % (auto) 3.1 % (0.0-7.0); Hemoglobin 7.4 g/dL (13.5-17.5); Mean Corpuscular Volume 100.9 fL (80.0-100.0); Monocytes % (auto) 10.9 % (0.0-12.0); Red Blood Cells 2.19 10^6/uL (4.5-5.90)
[2024-01-05 03:59] LABS: Basophils % (auto) 0.2 % (0.0-2.0); Hematocrit 22.1 % (41.0-53.0); Lymphocytes # (auto) 0.8 10 ^3/uL (0.4-5.4); Lymphocytes % (auto) 8.3 % (10.0-50.0); Mean Corpuscular Hemoglobin 33.7 pg (28.0-32.0); Mean Corpuscular Hgb Conc. 33.4 g/dL (32.0-36.0); Neutrophils # (auto) 7.3 10 ^3/uL (1.6-8.6); Neutrophils % (auto) 77.5 % (37.0-80.0); Platelet Count (auto) 238 10^3/uL (140-450); Red Cell Distribution Width 15.2 % (11.8-14.3); White Blood Cell 9.4 10^3/uL (4.4-10.8)
[2024-01-05 04:11] LABS: Alanine Aminotransferase 11 U/L (7-40); Albumin 2.5 g/dL (3.2-4.8); Alkaline Phosphatase 39 U/L (46-116); Anion Gap 7 (5-15); Aspartate Aminotransferase 20 U/L (13-40); BUN/Creatinine Ratio 9.6 (10.0-20.0); Blood Urea Nitrogen 8 mg/dL (9-23); Calcium 8.1 mg/dL (8.7-10.4); Carbon Dioxide 33 mmol/L (20-30); Chloride 106 mmol/L (98-107); Glucose 76 mg/dL (74-106); Magnesium 1.4 mg/dL (1.6-2.6); Potassium 2.8 mmol/L (3.5-5.1); Sodium 146 mmol/L (136-145)
[2024-01-05 04:12] LABS: Bilirubin, Total 0.5 mg/dL (0.2-1.0)
[2024-01-05] MEDS: MAGNESIUM SULFATE 1GM/100ML 100 ML IV SCH ×2 (06:01→17:29)
[2024-01-05] MEDS: POTASSIUM CHL 20MEQ/100ML 100 ML IV SCH ×3 (06:01→17:28)
[2024-01-05] MEDS ORDERED: CALCIUM GLUC 1,000mg/50ml-NS 50 ML IV SCH (06:15)
[2024-01-05] MEDS: CALCIUM GLUC 1,000mg/50ml-NS 50 ML IV SCH (07:28)
[2024-01-05] MEDS: acetaZOLAMIDE SODIUM 500 MG VL IV ONE (08:50)
[2024-01-05 09:54] LABS: Base Excess 5.5 mmol/L (-2.0-2.0)
[2024-01-05] MEDS: PIPERACILLIN-TAZOB 3.375GM 100 ML IV SCH (11:29)
[2024-01-05] MEDS: VANCOMYCIN HCL 500MG/5ML ORAL SOL GT SCH (12:00)
[2024-01-05] MEDS: ACETYLCYSTEINE 10 %(100MG/ML) SOL 4ML NEB SCH (13:54)
[2024-01-05 14:05] LABS: Base Excess 5.7 mmol/L (-2.0-2.0)
[2024-01-05] MEDS: ACETAMINOPHEN 650 mg PER 20.3 mL UD GT PRN (15:14)
[2024-01-05 16:01] LABS: Potassium 3.6 mmol/L (3.5-5.1)
[2024-01-05 16:03] LABS: Calcium 8.1 mg/dL (8.7-10.4)
[2024-01-05 16:08] LABS: Magnesium 1.6 mg/dL (1.6-2.6)
[2024-01-05 17:30] LABS: Basophils # (auto) 0 10 ^3/uL (0-0.2); Eosinophils # (auto) 0.5 10 ^3/uL (0-0.8); Lymphocytes # (auto) 0.7 10 ^3/uL (0.4-5.4); Lymphocytes % (auto) 7.5 % (10.0-50.0); Monocytes # (auto) 1.2 10 ^3/uL (0-1.3)
[2024-01-05 17:33] LABS: Basophils % (auto) 0.2 % (0.0-2.0); Eosinophils % (auto) 4.8 % (0.0-7.0); Hematocrit 21.1 % (41.0-53.0); Mean Corpuscular Hemoglobin 33.1 pg (28.0-32.0); Mean Corpuscular Hgb Conc. 32.6 g/dL (32.0-36.0); Mean Corpuscular Volume 101.5 fL (80.0-100.0); Monocytes % (auto) 12.9 % (0.0-12.0); Neutrophils % (auto) 74.6 % (37.0-80.0); Platelet Count (auto) 243 10^3/uL (140-450); Red Blood Cells 2.08 10^6/uL (4.5-5.90); Red Cell Distribution Width 15.7 % (11.8-14.3); White Blood Cell 9.3 10^3/uL (4.4-10.8)
[2024-01-05 17:45] LABS: Hemoglobin 6.9 g/dL (13.5-17.5)
[2024-01-06] VITALS (39 sets, daily range): BP systolic 107–153; BP diastolic 59–88; PULSE 79–123; RESP 16–32; TEMP 98.1–98.9; O2SAT 92–100
[2024-01-06 04:25] LABS: Basophils # (auto) 0 10 ^3/uL (0-0.2); Basophils % (auto) 0.3 % (0.0-2.0); Eosinophils # (auto) 0.5 10 ^3/uL (0-0.8); Eosinophils % (auto) 5.5 % (0.0-7.0); Hematocrit 23.3 % (41.0-53.0); Hemoglobin 7.8 g/dL (13.5-17.5); Lymphocytes # (auto) 0.6 10 ^3/uL (0.4-5.4); Lymphocytes % (auto) 6.2 % (10.0-50.0); Mean Corpuscular Hemoglobin 33.1 pg (28.0-32.0); Mean Corpuscular Hgb Conc. 33.6 g/dL (32.0-36.0); Mean Corpuscular Volume 98.4 fL (80.0-100.0); Monocytes # (auto) 1.1 10 ^3/uL (0-1.3); Monocytes % (auto) 11.8 % (0.0-12.0); Neutrophils # (auto) 7.1 10 ^3/uL (1.6-8.6); Neutrophils % (auto) 76.2 % (37.0-80.0); Platelet Count (auto) 214 10^3/uL (140-450); Red Blood Cells 2.37 10^6/uL (4.5-5.90); White Blood Cell 9.3 10^3/uL (4.4-10.8)
[2024-01-06 04:35] LABS: INR 1.22 (0.9-1.15); Partial Thromboplastin Time 33.9 SEC (24.5-34.5); Prothrombin Time 12.7 sec (9.3-11.8)
[2024-01-06 04:41] LABS: Albumin 2.5 g/dL (3.2-4.8); Alkaline Phosphatase 41 U/L (46-116); Anion Gap 4 (5-15); Aspartate Aminotransferase 20 U/L (13-40); BUN/Creatinine Ratio 8.5 (10.0-20.0); Bilirubin, Total 0.8 mg/dL (0.2-1.0); Blood Urea Nitrogen 8 mg/dL (9-23); Carbon Dioxide 35 mmol/L (20-30); Chloride 106 mmol/L (98-107); Glucose 98 mg/dL (74-106); Magnesium 1.8 mg/dL (1.6-2.6); Potassium 3.4 mmol/L (3.5-5.1); Sodium 145 mmol/L (136-145); Total Protein 4.8 g/dL (5.7-8.2)
[2024-01-06 04:53] LABS: Alanine Aminotransferase 9 U/L (7-40)
[2024-01-06] MEDS: CALCIUM GLUC 1,000mg/50ml-NS 50 ML IV SCH (06:55)
[2024-01-06] MEDS: POTASSIUM CHL 20MEQ/100ML 100 ML IV ONE (06:55)
[2024-01-06] MEDS: MAGNESIUM SULFATE 1GM/100ML 100 ML IV ONE ×2 (09:01→18:11)
[2024-01-06] MEDS: KETOROLAC TROMETH 30 MG/ML 1ML VIAL IV PRN (09:02)
[2024-01-06] MEDS: PANTOPRAZOLE 40 MG/10 ML VIAL INJ IV SCH (10:31)
[2024-01-06 14:44] LABS: Hematocrit 24.9 % (41.0-53.0); Hemoglobin 8.3 g/dL (13.5-17.5)
[2024-01-06 14:55] LABS: Potassium 3.6 mmol/L (3.5-5.1)
[2024-01-06 14:57] LABS: Calcium 8.6 mg/dL (8.7-10.4)
[2024-01-06 15:02] LABS: Magnesium 1.8 mg/dL (1.6-2.6)
[2024-01-06] MEDS: FUROSEMIDE 100 MG/10ML VIAL IV SCH (18:02)
[2024-01-06] MEDS: POTASSIUM CHL 20MEQ/100ML 100 ML IV SCH (18:11)
[2024-01-07] VITALS (56 sets, daily range): BP systolic 112–172; BP diastolic 60–91; PULSE 71–104; RESP 15–29; TEMP 98.2–99.1; O2SAT 89–100
[2024-01-07 04:04] LABS: Basophils # (auto) 0 10 ^3/uL (0-0.2); Eosinophils # (auto) 0.2 10 ^3/uL (0-0.8); Eosinophils % (auto) 2.3 % (0.0-7.0); Hemoglobin 7.4 g/dL (13.5-17.5); Monocytes # (auto) 1.1 10 ^3/uL (0-1.3); Nucleated Red Blood Cells % 0.1 %
[2024-01-07 04:08] LABS: Basophils % (auto) 0.3 % (0.0-2.0); Lymphocytes # (auto) 0.5 10 ^3/uL (0.4-5.4); Lymphocytes % (auto) 5.6 % (10.0-50.0); Mean Corpuscular Hgb Conc. 33.6 g/dL (32.0-36.0); Mean Corpuscular Volume 98.3 fL (80.0-100.0); Monocytes % (auto) 11.3 % (0.0-12.0); Neutrophils # (auto) 7.7 10 ^3/uL (1.6-8.6); Neutrophils % (auto) 80.5 % (37.0-80.0); Platelet Count (auto) 193 10^3/uL (140-450); Red Blood Cells 2.24 10^6/uL (4.5-5.90); Red Cell Distribution Width 17.3 % (11.8-14.3); White Blood Cell 9.6 10^3/uL (4.4-10.8)
[2024-01-07 04:42] LABS: Alanine Aminotransferase 11 U/L (7-40); Albumin 2.5 g/dL (3.2-4.8); Alkaline Phosphatase 40 U/L (46-116); Anion Gap 4 (5-15); Aspartate Aminotransferase 17 U/L (13-40); BUN/Creatinine Ratio 9.2 (10.0-20.0); Blood Urea Nitrogen 11 mg/dL (9-23); Carbon Dioxide 36 mmol/L (20-30); Chloride 103 mmol/L (98-107); Glucose 122 mg/dL (74-106); Magnesium 1.9 mg/dL (1.6-2.6); Potassium 3.6 mmol/L (3.5-5.1); Sodium 143 mmol/L (136-145)
[2024-01-07 04:43] LABS: Bilirubin, Total 0.6 mg/dL (0.2-1.0); Phosphorus 2.5 mg/dL (2.4-5.1); Total Protein 5.1 g/dL (5.7-8.2)
[2024-01-07 09:10] LABS: Base Excess 11.3 mmol/L (-2.0-2.0)
[2024-01-07] MEDS: POTASSIUM CHL 20MEQ/100ML 100 ML IV ONE (10:32)
[2024-01-07] MEDS: MAGNESIUM SULFATE 1GM/100ML 100 ML IV ONE (10:32)
[2024-01-07] MEDS: BUMETANIDE INJECTION 12.5 MG in GIVE UN-DILUTED 0 ML IV SCH (10:45)
[2024-01-07] MEDS: CALCIUM GLUC 1,000mg/50ml-NS 50 ML IV SCH ×2 (11:35→12:49)
[2024-01-07] MEDS: ENOXAPARIN SOD 40 MG/0.4 ML SYRINGE SC ONE (11:35)
[2024-01-07] MEDS: acetaZOLAMIDE SODIUM 500 MG VL IV ONE (11:54)
[2024-01-07 13:07] LABS: Vitamin D-2 25-Hydroxy 1.2 ng/mL (.)
[2024-01-08] VITALS (59 sets, daily range): BP systolic 92–155; BP diastolic 53–85; PULSE 81–106; RESP 14–29; TEMP 97.6–98.6; O2SAT 89–100
[2024-01-08 03:58] LABS: Basophils # (auto) 0 10 ^3/uL (0-0.2); Basophils % (auto) 0.2 % (0.0-2.0); Eosinophils # (auto) 0.3 10 ^3/uL (0-0.8); Eosinophils % (auto) 3.6 % (0.0-7.0); Hemoglobin 7.4 g/dL (13.5-17.5); Lymphocytes # (auto) 0.8 10 ^3/uL (0.4-5.4); Lymphocytes % (auto) 8.8 % (10.0-50.0); Mean Corpuscular Hemoglobin 33.2 pg (28.0-32.0); Mean Corpuscular Hgb Conc. 33.6 g/dL (32.0-36.0); Mean Corpuscular Volume 98.9 fL (80.0-100.0); Monocytes # (auto) 0.9 10 ^3/uL (0-1.3); Monocytes % (auto) 9.7 % (0.0-12.0); Neutrophils # (auto) 7.1 10 ^3/uL (1.6-8.6); Neutrophils % (auto) 77.7 % (37.0-80.0); Platelet Count (auto) 194 10^3/uL (140-450); Red Blood Cells 2.23 10^6/uL (4.5-5.90); Red Cell Distribution Width 16.6 % (11.8-14.3); White Blood Cell 9.1 10^3/uL (4.4-10.8)
[2024-01-08 04:03] LABS: Alanine Aminotransferase 11 U/L (7-40); Albumin 2.4 g/dL (3.2-4.8); Alkaline Phosphatase 39 U/L (46-116); Anion Gap 2 (5-15); Aspartate Aminotransferase 16 U/L (13-40); BUN/Creatinine Ratio 9.3 (10.0-20.0); Blood Urea Nitrogen 11 mg/dL (9-23); Calcium 8.6 mg/dL (8.7-10.4); Carbon Dioxide 40 mmol/L (20-30); Chloride 100 mmol/L (98-107); Glucose 106 mg/dL (74-106); Magnesium 1.7 mg/dL (1.6-2.6); Potassium 3.1 mmol/L (3.5-5.1); Sodium 142 mmol/L (136-145)
[2024-01-08 04:04] LABS: Bilirubin, Total 0.6 mg/dL (0.2-1.0); Total Protein 5.1 g/dL (5.7-8.2)
[2024-01-08] MEDS: POTASSIUM CHL 20MEQ/100ML 100 ML IV SCH ×2 (05:02→21:38)
[2024-01-08 07:44] LABS: Base Excess 15.5 mmol/L (-2.0-2.0)
[2024-01-08] MEDS: CALCIUM GLUC 1,000mg/50ml-NS 50 ML IV SCH (08:59)
[2024-01-08] MEDS: ENOXAPARIN SOD 40 MG/0.4 ML SYRINGE SC SCH (09:02)
[2024-01-08] MEDS: acetaZOLAMIDE SODIUM 500 MG VL IV ONE (12:42)
[2024-01-08] MEDS: BUMETANIDE INJECTION 25 MG in GIVE UN-DILUTED 0 ML IV SCH (13:54)
[2024-01-08] MEDS: metOLazone 5 MG TAB PO ONE (14:43)
[2024-01-08 20:05] LABS: Potassium 3.1 mmol/L (3.5-5.1)
[2024-01-08 20:12] LABS: Magnesium 1.5 mg/dL (1.6-2.6)
[2024-01-08] MEDS: MAGNESIUM SULFATE 1GM/100ML 100 ML IV SCH (21:38)
[2024-01-08] MEDS: metroNIDAZOLE 500 MG TAB PO SCH (22:00)
[2024-01-09] VITALS (101 sets, daily range): BP systolic 74–160; BP diastolic 42–90; PULSE 69–105; RESP 9–43; TEMP 97.4–98.3; O2SAT 62–100
[2024-01-09 02:43] LABS: Basophils # (auto) 0 10 ^3/uL (0-0.2); Monocytes # (auto) 1.1 10 ^3/uL (0-1.3)
[2024-01-09 02:45] LABS: Basophils % (auto) 0.4 % (0.0-2.0); Eosinophils # (auto) 0.4 10 ^3/uL (0-0.8); Eosinophils % (auto) 3.9 % (0.0-7.0); Hematocrit 25.1 % (41.0-53.0); Lymphocytes % (auto) 9.1 % (10.0-50.0); Mean Corpuscular Hemoglobin 32.4 pg (28.0-32.0); Mean Corpuscular Volume 101.3 fL (80.0-100.0); Monocytes % (auto) 9.4 % (0.0-12.0); Neutrophils # (auto) 8.9 10 ^3/uL (1.6-8.6); Neutrophils % (auto) 77.2 % (37.0-80.0); Nucleated Red Blood Cells % 0.1 %; Platelet Count (auto) 215 10^3/uL (140-450); Red Blood Cells 2.48 10^6/uL (4.5-5.90); Red Cell Distribution Width 16.6 % (11.8-14.3); White Blood Cell 11.5 10^3/uL (4.4-10.8)
[2024-01-09 02:45] LABS: Base Excess 16.9 mmol/L (-2.0-2.0)
[2024-01-09 02:54] LABS: Alanine Aminotransferase 11 U/L (7-40); Albumin 2.6 g/dL (3.2-4.8); Alkaline Phosphatase 41 U/L (46-116); Aspartate Aminotransferase 17 U/L (13-40); BUN/Creatinine Ratio 7.7 (10.0-20.0); Blood Urea Nitrogen 9 mg/dL (9-23); Calcium 9.1 mg/dL (8.7-10.4); Chloride 95 mmol/L (98-107); Glucose 123 mg/dL (74-106); Magnesium 1.9 mg/dL (1.6-2.6); Potassium 3.2 mmol/L (3.5-5.1); Sodium 141 mmol/L (136-145)
[2024-01-09 02:55] LABS: Bilirubin, Total 0.5 mg/dL (0.2-1.0); Total Protein 5.9 g/dL (5.7-8.2)
[2024-01-09 03:07] LABS: Anion Gap 5.99999 (5-15)
[2024-01-09 03:08] LABS: Carbon Dioxide > 40 mmol/L (20-30)
[2024-01-09] MEDS: ETOMIDATE (2MG/ML) 20ML VIAL IV ONE ×3 (03:09→05:15)
[2024-01-09] MEDS: ROCURONIUM 10MG/ML 10ML VIAL IV ONE (03:12)
[2024-01-09] MEDS: SUCCINYLCHOLINE CHLORIDE 20 MG/ML 10ML VIAL IV ONE (03:14)
[2024-01-09] MEDS: fentaNYL Drip 2500mCg/250mlNS 250 ML IV ONE (03:30)
[2024-01-09] MEDS: MIDAZOLAM DRIP 50 mg/50mL 50 ML IV ONE (03:31)
[2024-01-09] MEDS: NOREPINEPHRINE 8 MG/250ML KIT 250 ML IV ONE (03:31)
[2024-01-09] MEDS: LIDOCAINE 2% (LOCAL ANESTH.) PF 5ml SDV ONE (04:17)
[2024-01-09] MEDS: NOREPINEPHRINE 8 MG/250ML KIT 250 ML IV SCH ×2 (04:27→09:15)
[2024-01-09] MEDS: fentaNYL Drip 2500mCg/250mlNS 250 ML IV SCH (04:27)
[2024-01-09] MEDS: MIDAZOLAM DRIP 50 mg/50mL 50 ML IV SCH (04:28)
[2024-01-09 05:01] LABS: Basophils # (auto) 0 10 ^3/uL (0-0.2); Basophils % (auto) 0.3 % (0.0-2.0); Eosinophils # (auto) 0.4 10 ^3/uL (0-0.8); Eosinophils % (auto) 3.4 % (0.0-7.0); Hematocrit 25.6 % (41.0-53.0); Hemoglobin 8.4 g/dL (13.5-17.5); Lymphocytes # (auto) 1.4 10 ^3/uL (0.4-5.4); Lymphocytes % (auto) 11.3 % (10.0-50.0); Mean Corpuscular Hemoglobin 33.1 pg (28.0-32.0); Mean Corpuscular Hgb Conc. 32.8 g/dL (32.0-36.0); Mean Corpuscular Volume 100.9 fL (80.0-100.0); Monocytes % (auto) 8.2 % (0.0-12.0); Neutrophils # (auto) 9.8 10 ^3/uL (1.6-8.6); Neutrophils % (auto) 76.8 % (37.0-80.0); Nucleated Red Blood Cells % 0.1 %; Platelet Count (auto) 263 10^3/uL (140-450); Red Blood Cells 2.54 10^6/uL (4.5-5.90); Red Cell Distribution Width 16.6 % (11.8-14.3); White Blood Cell 12.8 10^3/uL (4.4-10.8)
[2024-01-09 05:28] LABS: Alanine Aminotransferase 12 U/L (7-40); Albumin 2.7 g/dL (3.2-4.8); Alkaline Phosphatase 45 U/L (46-116); Aspartate Aminotransferase 19 U/L (13-40); BUN/Creatinine Ratio 7.4 (10.0-20.0); Blood Urea Nitrogen 9 mg/dL (9-23); Calcium 9.2 mg/dL (8.7-10.4); Chloride 95 mmol/L (98-107); Glucose 150 mg/dL (74-106); Magnesium 1.9 mg/dL (1.6-2.6); Potassium 3.6 mmol/L (3.5-5.1); Sodium 141 mmol/L (136-145)
[2024-01-09 05:29] LABS: Anion Gap 5.99999 (5-15); Bilirubin, Total 0.6 mg/dL (0.2-1.0); Total Protein 6.2 g/dL (5.7-8.2)
[2024-01-09 05:30] LABS: Carbon Dioxide > 40 mmol/L (20-30)
[2024-01-09 08:02] LABS: Base Excess 14.8 mmol/L (-2.0-2.0)
[2024-01-09] MEDS: acetaZOLAMIDE SODIUM 500 MG VL IV ONE (09:36)
[2024-01-09] MEDS: POTASSIUM CHL 20MEQ/100ML 100 ML IV ONE (09:58)
[2024-01-09] MEDS: MAGNESIUM SULFATE 1GM/100ML 100 ML IV ONE (09:58)
[2024-01-09] MEDS: PANTOPRAZOLE 40 MG/10 ML VIAL INJ IV SCH (10:36)
[2024-01-09 12:27] LABS: Base Excess 17.3 mmol/L (-2.0-2.0)
[2024-01-09 14:46] LABS: Base Excess 16.4 mmol/L (-2.0-2.0)
[2024-01-09 14:57] LABS: Potassium 3.3 mmol/L (3.5-5.1)
[2024-01-09] MEDS: BUMETANIDE INJECTION 12.5 MG in GIVE UN-DILUTED 0 ML IV SCH (17:04)
[2024-01-09] MEDS: POTASSIUM CHL 20MEQ/100ML 100 ML IV SCH (17:05)
[2024-01-10] VITALS (110 sets, daily range): BP systolic 69–152; BP diastolic 41–82; PULSE 70–106; RESP 9–21; TEMP 98–98.2; O2SAT 99–100
[2024-01-10 04:05] LABS: Basophils # (auto) 0.1 10 ^3/uL (0-0.2); Hemoglobin 8.4 g/dL (13.5-17.5); Monocytes # (auto) 1.7 10 ^3/uL (0-1.3); Nucleated Red Blood Cells % 0.2 %; White Blood Cell 15.1 10^3/uL (4.4-10.8)
[2024-01-10 04:08] LABS: Basophils % (auto) 0.6 % (0.0-2.0); Eosinophils # (auto) 0.6 10 ^3/uL (0-0.8); Eosinophils % (auto) 3.7 % (0.0-7.0); Lymphocytes # (auto) 2.3 10 ^3/uL (0.4-5.4); Mean Corpuscular Hemoglobin 32.7 pg (28.0-32.0); Mean Corpuscular Hgb Conc. 32.4 g/dL (32.0-36.0); Mean Corpuscular Volume 101.1 fL (80.0-100.0); Monocytes % (auto) 11.5 % (0.0-12.0); Neutrophils # (auto) 10.4 10 ^3/uL (1.6-8.6); Neutrophils % (auto) 69.2 % (37.0-80.0); Platelet Count (auto) 267 10^3/uL (140-450); Red Blood Cells 2.57 10^6/uL (4.5-5.90); Red Cell Distribution Width 17.1 % (11.8-14.3)
[2024-01-10 04:29] LABS: Albumin 2.8 g/dL (3.2-4.8); Alkaline Phosphatase 48 U/L (46-116); Anion Gap 5 (5-15); Aspartate Aminotransferase 17 U/L (13-40); BUN/Creatinine Ratio 7.9 (10.0-20.0); Blood Urea Nitrogen 11 mg/dL (9-23); Calcium 9.3 mg/dL (8.7-10.4); Carbon Dioxide 39 mmol/L (20-30); Chloride 95 mmol/L (98-107); Glucose 121 mg/dL (74-106); Magnesium 1.9 mg/dL (1.6-2.6); Potassium 3.7 mmol/L (3.5-5.1); Sodium 139 mmol/L (136-145)
[2024-01-10 04:30] LABS: Bilirubin, Total 0.7 mg/dL (0.2-1.0); Total Protein 5.9 g/dL (5.7-8.2)
[2024-01-10 04:42] LABS: Alanine Aminotransferase < 9 U/L (7-40)
[2024-01-10 07:32] LABS: Base Excess 17.1 mmol/L (-2.0-2.0)
[2024-01-10] MEDS: MAGNESIUM SULFATE 1GM/100ML 100 ML IV SCH (14:54)
[2024-01-10] MEDS: POTASSIUM CHL 20MEQ/100ML 100 ML IV SCH (14:54)
[2024-01-10 15:20] LABS: Urine Bacteria None Seen /hpf (None Seen)
[2024-01-10 15:28] LABS: Urine Blood Negative /uL (Negative); Urine Clarity Clear (Clear); Urine Color Colorless (Yellow); Urine Protein, UAD Negative (Negative); Urine Specific Gravity 1.006 (1.001-1.035); Urine Urobilinogen Normal (Negative); Urine WBC <1 /hpf (0 - 3)
[2024-01-10 15:42] LABS: Protein, Urine 11.7 mg/dL (0.0-11.9)
[2024-01-10 15:44] LABS: Creatinine, Urine 7.11 mg/dL (30.0-125.0)
[2024-01-11] VITALS (108 sets, daily range): BP systolic 77–145; BP diastolic 30–95; PULSE 76–96; RESP 10–20; TEMP 97.7–98.1; O2SAT 95–100
[2024-01-11] MEDS: NOREPINEPHRINE 8 MG/250ML KIT 250 ML IV SCH (01:40)
[2024-01-11 04:00] LABS: Basophils # (auto) 0.1 10 ^3/uL (0-0.2); Basophils % (auto) 0.6 % (0.0-2.0); Eosinophils # (auto) 0.6 10 ^3/uL (0-0.8); Hematocrit 25.4 % (41.0-53.0); Hemoglobin 8.2 g/dL (13.5-17.5); Lymphocytes # (auto) 1.7 10 ^3/uL (0.4-5.4); Lymphocytes % (auto) 13.2 % (10.0-50.0); Mean Corpuscular Hemoglobin 32.6 pg (28.0-32.0); Mean Corpuscular Hgb Conc. 32.2 g/dL (32.0-36.0); Mean Corpuscular Volume 101.4 fL (80.0-100.0); Monocytes # (auto) 1.6 10 ^3/uL (0-1.3); Monocytes % (auto) 12.4 % (0.0-12.0); Neutrophils # (auto) 8.9 10 ^3/uL (1.6-8.6); Neutrophils % (auto) 68.8 % (37.0-80.0); Nucleated Red Blood Cells % 0.3 %; Platelet Count (auto) 246 10^3/uL (140-450); Red Cell Distribution Width 18.2 % (11.8-14.3); White Blood Cell 12.9 10^3/uL (4.4-10.8)
[2024-01-11 04:16] LABS: Alkaline Phosphatase 52 U/L (46-116); Aspartate Aminotransferase 15 U/L (13-40); BUN/Creatinine Ratio 6.9 (10.0-20.0); Blood Urea Nitrogen 11 mg/dL (9-23); Calcium 9.2 mg/dL (8.7-10.4); Chloride 95 mmol/L (98-107); Glucose 119 mg/dL (74-106); Magnesium 2.1 mg/dL (1.6-2.6); Potassium 3.9 mmol/L (3.5-5.1); Sodium 137 mmol/L (136-145)
[2024-01-11 04:17] LABS: Albumin 2.7 g/dL (3.2-4.8); Bilirubin, Direct 0.2 mg/dL (<0.3); Bilirubin, Total 0.5 mg/dL (0.2-1.0); Phosphorus 3.6 mg/dL (2.4-5.1); Total Protein 5.9 g/dL (5.7-8.2)
[2024-01-11 04:31] LABS: Alanine Aminotransferase 9 U/L (7-40); Anion Gap 1.99999 (5-15); Carbon Dioxide > 40 mmol/L (20-30)
[2024-01-11 08:25] LABS: Base Excess 15.6 mmol/L (-2.0-2.0)
[2024-01-11] MEDS: acetaZOLAMIDE SODIUM 500 MG VL IV ONE (10:33)
[2024-01-11] MEDS: MICAFUNGIN SODIUM 100 MG in SODIUM CHL 0.9% 100 ML IV SCH (10:36)
[2024-01-11 12:53] LABS: Base Excess 14.8 mmol/L (-2.0-2.0)
[2024-01-11] MEDS: ENOXAPARIN SOD 100 MG/1 ML SYRINGE SC SCH (21:54)
[2024-01-11] MEDS: SODIUM CHLORIDE 0.9% 1,000 ML IV ONE (22:00)
[2024-01-12] VITALS (108 sets, daily range): BP systolic 85–154; BP diastolic 51–83; PULSE 63–93; RESP 10–22; TEMP 97.3–98.1; O2SAT 93–100
[2024-01-12 04:35] LABS: Basophils # (auto) 0.1 10 ^3/uL (0-0.2); Eosinophils # (auto) 0.6 10 ^3/uL (0-0.8); Hemoglobin 8.3 g/dL (13.5-17.5); Monocytes # (auto) 1.4 10 ^3/uL (0-1.3); Neutrophils # (auto) 7.8 10 ^3/uL (1.6-8.6); White Blood Cell 11.9 10^3/uL (4.4-10.8)
[2024-01-12 04:40] LABS: Albumin 2.7 g/dL (3.2-4.8); Alkaline Phosphatase 51 U/L (46-116); Anion Gap 7 (5-15); Aspartate Aminotransferase 17 U/L (13-40); BUN/Creatinine Ratio 7.7 (10.0-20.0); Blood Urea Nitrogen 13 mg/dL (9-23); Carbon Dioxide 39 mmol/L (20-30); Chloride 93 mmol/L (98-107); Glucose 119 mg/dL (74-106); Magnesium 1.9 mg/dL (1.6-2.6); Potassium 3.4 mmol/L (3.5-5.1); Sodium 139 mmol/L (136-145)
[2024-01-12 04:41] LABS: Bilirubin, Total 0.5 mg/dL (0.2-1.0); Total Protein 6.2 g/dL (5.7-8.2)
[2024-01-12 04:45] LABS: Basophils % (auto) 0.6 % (0.0-2.0); Eosinophils % (auto) 4.9 % (0.0-7.0); Lymphocytes % (auto) 16.7 % (10.0-50.0); Mean Corpuscular Hemoglobin 34.2 pg (28.0-32.0); Mean Corpuscular Hgb Conc. 33.3 g/dL (32.0-36.0); Mean Corpuscular Volume 102.9 fL (80.0-100.0); Monocytes % (auto) 12.2 % (0.0-12.0); Neutrophils % (auto) 65.6 % (37.0-80.0); Nucleated Red Blood Cells % 0.9 %; Platelet Count (auto) 225 10^3/uL (140-450); Red Blood Cells 2.43 10^6/uL (4.5-5.90); Red Cell Distribution Width 18.8 % (11.8-14.3)
[2024-01-12 05:06] LABS: Alanine Aminotransferase < 9 U/L (7-40)
[2024-01-12 08:48] LABS: Base Excess 11.9 mmol/L (-2.0-2.0)
[2024-01-12] MEDS: POTASSIUM CHL 20MEQ/100ML 100 ML IV SCH (08:54)
[2024-01-12] MEDS: POTASSIUM EFFERVESENT TAB 25 MEQ GT SCH (10:00)
[2024-01-12] MEDS: MAGNESIUM SULFATE 1GM/100ML 100 ML IV ONE (12:31)
[2024-01-12] MEDS: SODIUM CHLORIDE 0.9% 1,000 ML IV ONE (14:15)
[2024-01-12] MEDS: ENOXAPARIN SOD 100 MG/1 ML SYRINGE SC SCH (22:05)
[2024-01-13] VITALS (106 sets, daily range): BP systolic 94–140; BP diastolic 53–82; PULSE 60–85; RESP 11–24; TEMP 97.4–98.1; O2SAT 81–100
[2024-01-13 03:53] LABS: Basophils # (auto) 0.1 10 ^3/uL (0-0.2); Hemoglobin 7.5 g/dL (13.5-17.5); Neutrophils # (auto) 6.2 10 ^3/uL (1.6-8.6); Nucleated Red Blood Cells % 0.6 %; Platelet Count (auto) 191 10^3/uL (140-450)
[2024-01-13 03:57] LABS: Basophils % (auto) 0.6 % (0.0-2.0); Eosinophils # (auto) 0.5 10 ^3/uL (0-0.8); Eosinophils % (auto) 5.1 % (0.0-7.0); Hematocrit 22.3 % (41.0-53.0); Lymphocytes # (auto) 1.4 10 ^3/uL (0.4-5.4); Lymphocytes % (auto) 15.4 % (10.0-50.0); Mean Corpuscular Hgb Conc. 33.9 g/dL (32.0-36.0); Mean Corpuscular Volume 103.2 fL (80.0-100.0); Monocytes # (auto) 0.9 10 ^3/uL (0-1.3); Monocytes % (auto) 10.4 % (0.0-12.0); Neutrophils % (auto) 68.5 % (37.0-80.0); Red Blood Cells 2.16 10^6/uL (4.5-5.90); Red Cell Distribution Width 19.2 % (11.8-14.3)
[2024-01-13 06:28] LABS: Albumin 2.5 g/dL (3.2-4.8); Alkaline Phosphatase 47 U/L (46-116); Anion Gap 5 (5-15); Aspartate Aminotransferase 16 U/L (13-40); BUN/Creatinine Ratio 7.3 (10.0-20.0); Blood Urea Nitrogen 11 mg/dL (9-23); Calcium 8.7 mg/dL (8.7-10.4); Carbon Dioxide 36 mmol/L (20-30); Chloride 99 mmol/L (98-107); Glucose 108 mg/dL (74-106); Magnesium 1.9 mg/dL (1.6-2.6); Potassium 3.3 mmol/L (3.5-5.1); Sodium 140 mmol/L (136-145)
[2024-01-13 06:29] LABS: Bilirubin, Total 0.3 mg/dL (0.2-1.0); Total Protein 5.7 g/dL (5.7-8.2)
[2024-01-13 06:38] LABS: Alanine Aminotransferase < 9 U/L (7-40)
[2024-01-13] MEDS: POTASSIUM CHL 20MEQ/100ML 100 ML IV SCH (07:44)
[2024-01-13 07:51] LABS: Base Excess 10.4 mmol/L (-2.0-2.0)
[2024-01-13] MEDS: MAGNESIUM SULFATE 1GM/100ML 100 ML IV ONE (07:54)
[2024-01-13] MEDS: METOCLOPRAMIDE HCL 5MG/ml INJ 2ml VIAL IV SCH (15:41)
[2024-01-13 17:16] LABS: Hemoglobin 8.1 g/dL (13.5-17.5)
[2024-01-14] VITALS (103 sets, daily range): BP systolic 80–141; BP diastolic 44–78; PULSE 67–106; RESP 11–32; TEMP 98–99.3; O2SAT 82–100
[2024-01-14 04:00] LABS: Basophils # (auto) 0 10 ^3/uL (0-0.2); Eosinophils # (auto) 0.4 10 ^3/uL (0-0.8); Lymphocytes # (auto) 1.3 10 ^3/uL (0.4-5.4); Monocytes # (auto) 0.9 10 ^3/uL (0-1.3)
[2024-01-14 04:05] LABS: Basophils % (auto) 0.6 % (0.0-2.0); Eosinophils % (auto) 4.8 % (0.0-7.0); Hematocrit 22.6 % (41.0-53.0); Hemoglobin 7.7 g/dL (13.5-17.5); Lymphocytes % (auto) 15.8 % (10.0-50.0); Mean Corpuscular Hemoglobin 35.4 pg (28.0-32.0); Mean Corpuscular Hgb Conc. 33.9 g/dL (32.0-36.0); Mean Corpuscular Volume 104.3 fL (80.0-100.0); Monocytes % (auto) 10.6 % (0.0-12.0); Neutrophils # (auto) 5.5 10 ^3/uL (1.6-8.6); Neutrophils % (auto) 68.2 % (37.0-80.0); Nucleated Red Blood Cells % 0.4 %; Platelet Count (auto) 183 10^3/uL (140-450); Red Blood Cells 2.17 10^6/uL (4.5-5.90)
[2024-01-14 04:13] LABS: Albumin 2.5 g/dL (3.2-4.8); Alkaline Phosphatase 48 U/L (46-116); Anion Gap 7 (5-15); Aspartate Aminotransferase 20 U/L (13-40); BUN/Creatinine Ratio 6.2 (10.0-20.0); Bilirubin, Total 0.4 mg/dL (0.2-1.0); Blood Urea Nitrogen 9 mg/dL (9-23); Carbon Dioxide 34 mmol/L (20-30); Chloride 100 mmol/L (98-107); Glucose 80 mg/dL (74-106); Phosphorus 3.4 mg/dL (2.4-5.1); Potassium 3.6 mmol/L (3.5-5.1); Sodium 141 mmol/L (136-145)
[2024-01-14 04:39] LABS: Red Cell Distribution Width 21.7 % (11.8-14.3)
[2024-01-14 04:57] LABS: Alanine Aminotransferase < 9 U/L (7-40)
[2024-01-14 07:17] LABS: Base Excess 7.8 mmol/L (-2.0-2.0)
[2024-01-14] MEDS: POTASSIUM CHL 20MEQ/100ML 100 ML IV SCH (08:32)
[2024-01-14 11:04] LABS: Base Excess 9.6 mmol/L (-2.0-2.0)
[2024-01-14] MEDS: DEXTROSE (50%) 50ML SYRG IV SCH (11:52)
[2024-01-14 12:18] LABS: Hemoglobin 7.6 g/dL (13.5-17.5)
[2024-01-14 19:51] LABS: % Iron Saturation 18.8 % (20-55)
[2024-01-15] VITALS (105 sets, daily range): BP systolic 73–163; BP diastolic 40–92; PULSE 60–115; RESP 11–24; TEMP 97.7–98.9; O2SAT 74–100
[2024-01-15 03:51] LABS: Basophils # (auto) 0 10 ^3/uL (0-0.2); Eosinophils # (auto) 0.2 10 ^3/uL (0-0.8); Hemoglobin 7.1 g/dL (13.5-17.5); Monocytes # (auto) 0.8 10 ^3/uL (0-1.3); Neutrophils # (auto) 3.6 10 ^3/uL (1.6-8.6); Platelet Count (auto) 151 10^3/uL (140-450)
[2024-01-15 03:54] LABS: Basophils % (auto) 0.4 % (0.0-2.0); Hematocrit 21.3 % (41.0-53.0); Lymphocytes % (auto) 17.6 % (10.0-50.0); Mean Corpuscular Hemoglobin 34.9 pg (28.0-32.0); Mean Corpuscular Hgb Conc. 33.2 g/dL (32.0-36.0); Monocytes % (auto) 13.7 % (0.0-12.0); Neutrophils % (auto) 65.3 % (37.0-80.0); Nucleated Red Blood Cells % 0.3 %; Red Blood Cells 2.03 10^6/uL (4.5-5.90); White Blood Cell 5.6 10^3/uL (4.4-10.8)
[2024-01-15 04:01] LABS: Red Cell Distribution Width 22.1 % (11.8-14.3)
[2024-01-15 04:06] LABS: Albumin 2.7 g/dL (3.2-4.8); Alkaline Phosphatase 44 U/L (46-116); Anion Gap 5 (5-15); Aspartate Aminotransferase 26 U/L (13-40); BUN/Creatinine Ratio 6.6 (10.0-20.0); Bilirubin, Total 0.4 mg/dL (0.2-1.0); Blood Urea Nitrogen 10 mg/dL (9-23); Calcium 8.9 mg/dL (8.7-10.4); Carbon Dioxide 34 mmol/L (20-30); Chloride 102 mmol/L (98-107); Glucose 78 mg/dL (74-106); Magnesium 1.9 mg/dL (1.6-2.6); Potassium 4.1 mmol/L (3.5-5.1); Sodium 141 mmol/L (136-145); Total Protein 6.2 g/dL (5.7-8.2)
[2024-01-15 04:09] LABS: Alanine Aminotransferase < 9 U/L (7-40)
[2024-01-15] MEDS: MAGNESIUM SULFATE 1GM/100ML 100 ML IV ONE (08:06)
[2024-01-15] MEDS: FUROSEMIDE 100 MG/10ML VIAL IV ONE (08:07)
[2024-01-15 08:25] LABS: Base Excess 6.4 mmol/L (-2.0-2.0)
[2024-01-15 14:28] LABS: Hematocrit 21.7 % (41.0-53.0); Hemoglobin 7.1 g/dL (13.5-17.5)
[2024-01-16] VITALS (111 sets, daily range): BP systolic 91–156; BP diastolic 50–98; PULSE 79–120; RESP 12–36; TEMP 98.2–99.9; O2SAT 88–100
[2024-01-16 04:00] LABS: Basophils # (auto) 0 10 ^3/uL (0-0.2); Eosinophils # (auto) 0.1 10 ^3/uL (0-0.8); Lymphocytes # (auto) 0.9 10 ^3/uL (0.4-5.4); Mean Corpuscular Hemoglobin 34.9 pg (28.0-32.0); Monocytes # (auto) 0.8 10 ^3/uL (0-1.3); Monocytes % (auto) 15.4 % (0.0-12.0); Neutrophils # (auto) 3.2 10 ^3/uL (1.6-8.6); Platelet Count (auto) 140 10^3/uL (140-450); Red Blood Cells 1.97 10^6/uL (4.5-5.90); White Blood Cell 5.1 10^3/uL (4.4-10.8)
[2024-01-16 04:04] LABS: Basophils % (auto) 0.4 % (0.0-2.0); Eosinophils % (auto) 2.9 % (0.0-7.0); Hematocrit 20.6 % (41.0-53.0); Lymphocytes % (auto) 17.5 % (10.0-50.0); Mean Corpuscular Hgb Conc. 33.4 g/dL (32.0-36.0); Mean Corpuscular Volume 104.6 fL (80.0-100.0); Neutrophils % (auto) 63.8 % (37.0-80.0); Nucleated Red Blood Cells % 0.3 %
[2024-01-16 04:15] LABS: Red Cell Distribution Width 22.2 % (11.8-14.3)
[2024-01-16 04:19] LABS: Albumin 2.8 g/dL (3.2-4.8); Alkaline Phosphatase 50 U/L (46-116); Anion Gap 2 (5-15); Aspartate Aminotransferase 30 U/L (13-40); BUN/Creatinine Ratio 8.2 (10.0-20.0); Blood Urea Nitrogen 12 mg/dL (9-23); Carbon Dioxide 37 mmol/L (20-30); Chloride 101 mmol/L (98-107); Glucose 73 mg/dL (74-106); Potassium 3.9 mmol/L (3.5-5.1); Sodium 140 mmol/L (136-145)
[2024-01-16 04:20] LABS: Alanine Aminotransferase < 9 U/L (7-40); Bilirubin, Total 0.4 mg/dL (0.2-1.0); Total Protein 6.1 g/dL (5.7-8.2)
[2024-01-16 04:25] LABS: Hemoglobin 6.9 g/dL (13.5-17.5)
[2024-01-16 04:28] LABS: Anisocytosis Slight; Hypochromia Slight
[2024-01-16 04:29] LABS: Macrocytosis Slight; Platelet Estimate Decreased; Stomatocytes Few
[2024-01-16 09:46] LABS: Base Excess 8.5 mmol/L (-2.0-2.0)
[2024-01-16 11:59] LABS: Chloride 101 mmol/L (98-107); Potassium 3.9 mmol/L (3.5-5.1); Sodium 140 mmol/L (136-145)
[2024-01-16 12:00] LABS: Anion Gap 3 (5-15); Carbon Dioxide 36 mmol/L (20-30)
[2024-01-16 12:05] LABS: BUN/Creatinine Ratio 7.5 (10.0-20.0); Blood Urea Nitrogen 11 mg/dL (9-23); Glucose 86 mg/dL (74-106)
[2024-01-16] MEDS: Glucerna 1.2 Cal 1Liter BOTTLE GT SCH (16:04)
[2024-01-17] VITALS (108 sets, daily range): BP systolic 77–142; BP diastolic 46–92; PULSE 58–122; RESP 10–24; TEMP 97.7–99.5; O2SAT 89–100
[2024-01-17 04:29] LABS: Basophils # (auto) 0 10 ^3/uL (0-0.2); Basophils % (auto) 0.4 % (0.0-2.0); Eosinophils # (auto) 0.2 10 ^3/uL (0-0.8); Hematocrit 25.3 % (41.0-53.0); Hemoglobin 8.6 g/dL (13.5-17.5); Lymphocytes # (auto) 0.8 10 ^3/uL (0.4-5.4); Lymphocytes % (auto) 12.3 % (10.0-50.0); Mean Corpuscular Hemoglobin 33.6 pg (28.0-32.0); Mean Corpuscular Hgb Conc. 34.1 g/dL (32.0-36.0); Mean Corpuscular Volume 98.7 fL (80.0-100.0); Monocytes # (auto) 1.1 10 ^3/uL (0-1.3); Monocytes % (auto) 17.9 % (0.0-12.0); Neutrophils # (auto) 4.1 10 ^3/uL (1.6-8.6); Neutrophils % (auto) 65.4 % (37.0-80.0); Nucleated Red Blood Cells % 0.2 %; Platelet Count (auto) 150 10^3/uL (140-450); Red Blood Cells 2.56 10^6/uL (4.5-5.90); White Blood Cell 6.2 10^3/uL (4.4-10.8)
[2024-01-17 04:44] LABS: Alanine Aminotransferase 10 U/L (7-40); Alkaline Phosphatase 50 U/L (46-116); Calcium 9.1 mg/dL (8.7-10.4); Carbon Dioxide 33 mmol/L (20-30); Chloride 101 mmol/L (98-107)
[2024-01-17 04:45] LABS: Albumin 2.8 g/dL (3.2-4.8); Anion Gap 5 (5-15); Aspartate Aminotransferase 33 U/L (13-40); BUN/Creatinine Ratio 8.3 (10.0-20.0); Bilirubin, Total 0.4 mg/dL (0.2-1.0); Blood Urea Nitrogen 11 mg/dL (9-23); Glucose 78 mg/dL (74-106); Magnesium 1.9 mg/dL (1.6-2.6); Potassium 3.3 mmol/L (3.5-5.1); Sodium 139 mmol/L (136-145); Total Protein 6.2 g/dL (5.7-8.2)
[2024-01-17 06:48] LABS: Base Excess 4.2 mmol/L (-2.0-2.0)
[2024-01-17] MEDS: MAGNESIUM SULFATE 1GM/100ML 100 ML IV ONE (11:01)
[2024-01-17] MEDS: FUROSEMIDE 40 MG/4 ML VIAL IV ONE (11:02)
[2024-01-17] MEDS: POTASSIUM CHL 20MEQ/100ML 100 ML IV SCH (11:31)
[2024-01-17] MEDS: VALPROATE INJ 1,000 MG in SODIUM CHL 0.9% 100 ML IV ONE (16:42)
[2024-01-17 17:17] LABS: INR 1.07 (0.9-1.15); Partial Thromboplastin Time 31.5 SEC (24.5-34.5); Prothrombin Time 11.3 sec (9.3-11.8)
[2024-01-17] MEDS: VALPROATE INJ 500 MG in SODIUM CHL 0.9% 100 ML IV SCH (21:46)
[2024-01-18] VITALS (109 sets, daily range): BP systolic 68–147; BP diastolic 42–94; PULSE 60–106; RESP 11–25; TEMP 97.8–99.1; O2SAT 94–100
[2024-01-18 04:27] LABS: Basophils # (auto) 0 10 ^3/uL (0-0.2); Basophils % (auto) 0.3 % (0.0-2.0); Eosinophils # (auto) 0.5 10 ^3/uL (0-0.8); Hematocrit 27.1 % (41.0-53.0); Hemoglobin 8.9 g/dL (13.5-17.5); Lymphocytes # (auto) 1.1 10 ^3/uL (0.4-5.4); Lymphocytes % (auto) 15.9 % (10.0-50.0); Mean Corpuscular Hemoglobin 33.2 pg (28.0-32.0); Mean Corpuscular Volume 100.8 fL (80.0-100.0); Monocytes % (auto) 14.4 % (0.0-12.0); Neutrophils # (auto) 4.2 10 ^3/uL (1.6-8.6); Neutrophils % (auto) 61.4 % (37.0-80.0); Nucleated Red Blood Cells % 0.1 %; Platelet Count (auto) 160 10^3/uL (140-450); Red Blood Cells 2.69 10^6/uL (4.5-5.90); White Blood Cell 6.8 10^3/uL (4.4-10.8)
[2024-01-18 04:28] LABS: Red Cell Distribution Width 24.5 % (11.8-14.3)
[2024-01-18 04:39] LABS: Chloride 104 mmol/L (98-107); Potassium 4.6 mmol/L (3.5-5.1); Sodium 140 mmol/L (136-145)
[2024-01-18 04:40] LABS: Anion Gap 0 (5-15); Calcium 9.4 mg/dL (8.7-10.4); Carbon Dioxide 36 mmol/L (20-30)
[2024-01-18 04:45] LABS: Blood Urea Nitrogen 12 mg/dL (9-23); Glucose 65 mg/dL (74-106)
[2024-01-18] MEDS: fentaNYL Drip 2500mCg/250mlNS 250 ML IV SCH (08:16)
[2024-01-18] MEDS ORDERED: LIDOCAINE 2%HCL (LOCAL ANESTH.) INJ 20ML MDV ONE (09:08)
[2024-01-18] MEDS ORDERED: SODIUM CHLORIDE LOCK 10 ML ONE (09:08)
[2024-01-18] MEDS ORDERED: GLYCOPYRROLATE 0.2 MG/ML 1ML VIAL ONE (09:09)
[2024-01-18] MEDS ORDERED: EPINEPHrine HCL 1 MG/1 ML AMP ONE (09:09)
[2024-01-18] MEDS: MIDAZOLAM HCL 5 MG/ML-1ML VIAL ONE (09:44)
[2024-01-18] MEDS ORDERED: Glucerna 1.2 Cal 1Liter BOTTLE GT SCH (11:00)
[2024-01-18] MEDS: FUROSEMIDE 40 MG/4 ML VIAL IV SCH (11:17)
[2024-01-18] MEDS: ENOXAPARIN SOD 40 MG/0.4 ML SYRINGE SC ONE (19:08)
[2024-01-18] MEDS: METOCLOPRAMIDE HCL 5MG/ml INJ 2ml VIAL IV SCH (21:38)
[2024-01-19] VITALS (110 sets, daily range): BP systolic 78–154; BP diastolic 45–93; PULSE 77–118; RESP 12–29; TEMP 98.3–98.7; O2SAT 96–100
[2024-01-19 04:21] LABS: Basophils # (auto) 0 10 ^3/uL (0-0.2); Basophils % (auto) 0.3 % (0.0-2.0); Eosinophils # (auto) 0.3 10 ^3/uL (0-0.8); Eosinophils % (auto) 4.6 % (0.0-7.0); Hemoglobin 9.2 g/dL (13.5-17.5); Lymphocytes # (auto) 0.8 10 ^3/uL (0.4-5.4); Lymphocytes % (auto) 12.6 % (10.0-50.0); Mean Corpuscular Hemoglobin 32.7 pg (28.0-32.0); Mean Corpuscular Hgb Conc. 32.9 g/dL (32.0-36.0); Mean Corpuscular Volume 99.4 fL (80.0-100.0); Monocytes # (auto) 0.8 10 ^3/uL (0-1.3); Monocytes % (auto) 13.1 % (0.0-12.0); Neutrophils # (auto) 4.3 10 ^3/uL (1.6-8.6); Neutrophils % (auto) 69.4 % (37.0-80.0); Nucleated Red Blood Cells % 0.1 %; Platelet Count (auto) 172 10^3/uL (140-450); Red Blood Cells 2.81 10^6/uL (4.5-5.90); White Blood Cell 6.2 10^3/uL (4.4-10.8)
[2024-01-19 04:23] LABS: Red Cell Distribution Width 23.6 % (11.8-14.3)
[2024-01-19 04:36] LABS: Albumin 2.6 g/dL (3.2-4.8); Alkaline Phosphatase 48 U/L (46-116); Anion Gap 6 (5-15); Aspartate Aminotransferase 28 U/L (13-40); BUN/Creatinine Ratio 9.9 (10.0-20.0); Blood Urea Nitrogen 11 mg/dL (9-23); Calcium 8.8 mg/dL (8.7-10.4); Carbon Dioxide 34 mmol/L (20-30); Chloride 101 mmol/L (98-107); Glucose 69 mg/dL (74-106); Magnesium 1.8 mg/dL (1.6-2.6); Potassium 3.3 mmol/L (3.5-5.1); Sodium 141 mmol/L (136-145)
[2024-01-19 04:37] LABS: Bilirubin, Total 0.3 mg/dL (0.2-1.0); Total Protein 6.4 g/dL (5.7-8.2)
[2024-01-19 04:40] LABS: Alanine Aminotransferase < 9 U/L (7-40)
[2024-01-19 07:11] LABS: Base Excess 8.6 mmol/L (-2.0-2.0)
[2024-01-19] MEDS: MAGNESIUM SULFATE 1GM/100ML 100 ML IV ONE (09:35)
[2024-01-19] MEDS: ENOXAPARIN SOD 40 MG/0.4 ML SYRINGE SC SCH (09:36)
[2024-01-19] MEDS: POTASSIUM CHL 20MEQ/100ML 100 ML IV SCH (09:36)
[2024-01-19] MEDS: DEXTROSE 10% 1,000 ML IV SCH (12:10)
[2024-01-19] MEDS: Jevity 1.2 Cal/Fiber 1 Liter GT SCH (22:36)
[2024-01-20] VITALS (106 sets, daily range): BP systolic 72–147; BP diastolic 45–83; PULSE 77–121; RESP 12–27; TEMP 98–99.1; O2SAT 94–100
[2024-01-20 04:09] LABS: Basophils # (auto) 0 10 ^3/uL (0-0.2); Basophils % (auto) 0.2 % (0.0-2.0); Eosinophils # (auto) 0.2 10 ^3/uL (0-0.8); Eosinophils % (auto) 4.4 % (0.0-7.0); Hematocrit 25.5 % (41.0-53.0); Hemoglobin 8.6 g/dL (13.5-17.5); Lymphocytes # (auto) 0.7 10 ^3/uL (0.4-5.4); Lymphocytes % (auto) 17.5 % (10.0-50.0); Mean Corpuscular Hemoglobin 33.8 pg (28.0-32.0); Mean Corpuscular Hgb Conc. 33.7 g/dL (32.0-36.0); Mean Corpuscular Volume 100.1 fL (80.0-100.0); Monocytes # (auto) 0.7 10 ^3/uL (0-1.3); Neutrophils # (auto) 2.6 10 ^3/uL (1.6-8.6); Neutrophils % (auto) 61.9 % (37.0-80.0); Platelet Count (auto) 146 10^3/uL (140-450); Red Blood Cells 2.54 10^6/uL (4.5-5.90); White Blood Cell 4.3 10^3/uL (4.4-10.8)
[2024-01-20 04:20] LABS: Chloride 101 mmol/L (98-107); Potassium 3.3 mmol/L (3.5-5.1); Sodium 139 mmol/L (136-145)
[2024-01-20 04:21] LABS: Anion Gap 1 (5-15); Carbon Dioxide 37 mmol/L (20-30)
[2024-01-20 04:22] LABS: Calcium 8.6 mg/dL (8.7-10.4)
[2024-01-20 04:24] LABS: Red Cell Distribution Width 23.6 % (11.8-14.3)
[2024-01-20 04:26] LABS: Glucose 96 mg/dL (74-106)
[2024-01-20 04:27] LABS: Magnesium 1.8 mg/dL (1.6-2.6)
[2024-01-20 04:45] LABS: BUN/Creatinine Ratio 8.2 (10.0-20.0); Blood Urea Nitrogen 9 mg/dL (9-23)
[2024-01-20] MEDS: POTASSIUM CHL 20MEQ/100ML 100 ML IV ONE ×2 (06:04→07:59)
[2024-01-20] MEDS: CALCIUM GLUC 1,000mg/50ml-NS 50 ML IV ONE ×2 (08:00→15:02)
[2024-01-20] MEDS: MAGNESIUM SULFATE 1GM/100ML 100 ML IV ONE (08:00)
[2024-01-20 08:04] LABS: Base Excess 8.6 mmol/L (-2.0-2.0)
[2024-01-20 12:32] LABS: Base Excess 8.9 mmol/L (-2.0-2.0)
[2024-01-20] MEDS: DOXYCYCLINE 100MG/250ML 250 ML IV SCH (15:02)
[2024-01-21] VITALS (67 sets, daily range): BP systolic 87–140; BP diastolic 47–84; PULSE 70–103; RESP 15–29; TEMP 98.1–98.4; O2SAT 95–100
[2024-01-21 04:46] LABS: Basophils # (auto) 0 10 ^3/uL (0-0.2); Basophils % (auto) 0.3 % (0.0-2.0); Eosinophils # (auto) 0.2 10 ^3/uL (0-0.8); Eosinophils % (auto) 5.6 % (0.0-7.0); Hematocrit 26.2 % (41.0-53.0); Hemoglobin 8.7 g/dL (13.5-17.5); Lymphocytes # (auto) 0.6 10 ^3/uL (0.4-5.4); Lymphocytes % (auto) 15.4 % (10.0-50.0); Mean Corpuscular Hemoglobin 33.3 pg (28.0-32.0); Mean Corpuscular Hgb Conc. 33.3 g/dL (32.0-36.0); Mean Corpuscular Volume 99.9 fL (80.0-100.0); Monocytes # (auto) 0.5 10 ^3/uL (0-1.3); Monocytes % (auto) 14.2 % (0.0-12.0); Neutrophils # (auto) 2.5 10 ^3/uL (1.6-8.6); Neutrophils % (auto) 64.5 % (37.0-80.0); Nucleated Red Blood Cells % 0.1 %; Platelet Count (auto) 142 10^3/uL (140-450); Red Blood Cells 2.62 10^6/uL (4.5-5.90); White Blood Cell 3.9 10^3/uL (4.4-10.8)
[2024-01-21 05:04] LABS: Alanine Aminotransferase 10 U/L (7-40); Albumin 2.5 g/dL (3.2-4.8); Alkaline Phosphatase 44 U/L (46-116); Anion Gap 4 (5-15); Aspartate Aminotransferase 26 U/L (13-40); Blood Urea Nitrogen 7 mg/dL (9-23); Calcium 8.2 mg/dL (8.7-10.4); Carbon Dioxide 35 mmol/L (20-30); Chloride 99 mmol/L (98-107); Glucose 88 mg/dL (74-106); Magnesium 1.7 mg/dL (1.6-2.6); Potassium 3.1 mmol/L (3.5-5.1); Sodium 138 mmol/L (136-145)
[2024-01-21 05:05] LABS: Bilirubin, Total 0.3 mg/dL (0.2-1.0); Total Protein 5.8 g/dL (5.7-8.2)
[2024-01-21 05:06] LABS: Red Cell Distribution Width 22.8 % (11.8-14.3)
[2024-01-21] MEDS: POTASSIUM CHL 20MEQ/100ML 100 ML IV ONE (06:55)
[2024-01-21] MEDS: CALCIUM GLUC 1,000mg/50ml-NS 50 ML IV SCH (09:06)
[2024-01-21] MEDS: MAGNESIUM SULFATE 1GM/100ML 100 ML IV ONE ×2 (09:07→10:49)
[2024-01-21] MEDS: POTASSIUM CHL 20MEQ/100ML 100 ML IV SCH (09:07)
[2024-01-21] MEDS: ENOXAPARIN SOD 60 MG/0.6 ML SYRINGE SC ONE (13:54)
[2024-01-22] VITALS (50 sets, daily range): BP systolic 95–148; BP diastolic 53–96; PULSE 79–108; RESP 15–28; TEMP 98.2–98.8; O2SAT 97–100
[2024-01-22 02:39] LABS: COVID19 ANTIGEN SOFIA FIA NEGATIVE (NEGATIVE)
[2024-01-22 04:22] LABS: Basophils # (auto) 0 10 ^3/uL (0-0.2); Basophils % (auto) 0.2 % (0.0-2.0); Eosinophils # (auto) 0.2 10 ^3/uL (0-0.8); Eosinophils % (auto) 4.1 % (0.0-7.0); Hematocrit 25.6 % (41.0-53.0); Hemoglobin 8.5 g/dL (13.5-17.5); Lymphocytes # (auto) 0.8 10 ^3/uL (0.4-5.4); Lymphocytes % (auto) 17.4 % (10.0-50.0); Mean Corpuscular Hemoglobin 33.4 pg (28.0-32.0); Mean Corpuscular Hgb Conc. 33.2 g/dL (32.0-36.0); Mean Corpuscular Volume 100.6 fL (80.0-100.0); Monocytes # (auto) 0.6 10 ^3/uL (0-1.3); Monocytes % (auto) 13.9 % (0.0-12.0); Neutrophils # (auto) 2.8 10 ^3/uL (1.6-8.6); Neutrophils % (auto) 64.4 % (37.0-80.0); Platelet Count (auto) 135 10^3/uL (140-450); Red Blood Cells 2.55 10^6/uL (4.5-5.90); White Blood Cell 4.4 10^3/uL (4.4-10.8)
[2024-01-22 04:26] LABS: Red Cell Distribution Width 22.1 % (11.8-14.3)
[2024-01-22 04:48] LABS: Albumin 2.2 g/dL (3.2-4.8); Alkaline Phosphatase 45 U/L (46-116); Anion Gap 1 (5-15); Aspartate Aminotransferase 22 U/L (13-40); BUN/Creatinine Ratio 6.5 (10.0-20.0); Blood Urea Nitrogen 7 mg/dL (9-23); Calcium 8.2 mg/dL (8.7-10.4); Carbon Dioxide 34 mmol/L (20-30); Chloride 100 mmol/L (98-107); Glucose 173 mg/dL (74-106); Magnesium 1.7 mg/dL (1.6-2.6); Potassium 3.3 mmol/L (3.5-5.1); Sodium 135 mmol/L (136-145)
[2024-01-22 04:49] LABS: Bilirubin, Total 0.2 mg/dL (0.2-1.0); Total Protein 5.4 g/dL (5.7-8.2)
[2024-01-22 04:58] LABS: Alanine Aminotransferase < 9 U/L (7-40)
[2024-01-22] MEDS: CALCIUM GLUC 1,000mg/50ml-NS 50 ML IV SCH (08:10)
[2024-01-22] MEDS: MAGNESIUM SULFATE 1GM/100ML 100 ML IV SCH (08:10)
[2024-01-22] MEDS: POTASSIUM CHL 20MEQ/100ML 100 ML IV SCH (08:10)
[2024-01-22] MEDS: ENOXAPARIN SOD 100 MG/1 ML SYRINGE SC SCH (09:12)
[2024-01-22] MEDS: Glucerna Carbsteady SHAKE Vanilla 8oz PO SCH (18:00)
[2024-01-22] MEDS ORDERED: ENOXAPARIN SOD 100 MG/1 ML SYRINGE SC SCH (22:00)
[2024-01-23] VITALS (26 sets, daily range): BP systolic 129–158; BP diastolic 73–103; PULSE 71–100; RESP 16–28; TEMP 98.6–99; O2SAT 95–100
[2024-01-23 05:04] LABS: Basophils # (auto) 0 10 ^3/uL (0-0.2); Eosinophils # (auto) 0.1 10 ^3/uL (0-0.8); Lymphocytes # (auto) 0.9 10 ^3/uL (0.4-5.4); Monocytes # (auto) 0.5 10 ^3/uL (0-1.3); Neutrophils # (auto) 2.2 10 ^3/uL (1.6-8.6); White Blood Cell 3.8 10^3/uL (4.4-10.8)
[2024-01-23 05:05] LABS: Basophils % (auto) 0.2 % (0.0-2.0); Eosinophils % (auto) 3.1 % (0.0-7.0); Hematocrit 25.2 % (41.0-53.0); Hemoglobin 8.4 g/dL (13.5-17.5); Lymphocytes % (auto) 23.5 % (10.0-50.0); Mean Corpuscular Hemoglobin 33.3 pg (28.0-32.0); Mean Corpuscular Hgb Conc. 33.2 g/dL (32.0-36.0); Mean Corpuscular Volume 100.1 fL (80.0-100.0); Monocytes % (auto) 14.1 % (0.0-12.0); Neutrophils % (auto) 59.1 % (37.0-80.0); Nucleated Red Blood Cells % 0.1 %; Platelet Count (auto) 155 10^3/uL (140-450); Red Blood Cells 2.52 10^6/uL (4.5-5.90); Red Cell Distribution Width 21.7 % (11.8-14.3)
[2024-01-23 05:25] LABS: Albumin 2.4 g/dL (3.2-4.8); Alkaline Phosphatase 40 U/L (46-116); Anion Gap 4 (5-15); Aspartate Aminotransferase 26 U/L (13-40); BUN/Creatinine Ratio 8.1 (10.0-20.0); Blood Urea Nitrogen 8 mg/dL (9-23); Calcium 8.5 mg/dL (8.7-10.4); Carbon Dioxide 33 mmol/L (20-30); Chloride 102 mmol/L (98-107); Glucose 95 mg/dL (74-106); Magnesium 1.8 mg/dL (1.6-2.6); Potassium 3.5 mmol/L (3.5-5.1); Sodium 139 mmol/L (136-145)
[2024-01-23 05:26] LABS: Bilirubin, Total 0.3 mg/dL (0.2-1.0); Total Protein 5.7 g/dL (5.7-8.2)
[2024-01-23 05:34] LABS: Alanine Aminotransferase < 9 U/L (7-40)
[2024-01-23] MEDS: MAGNESIUM SULFATE 1GM/100ML 100 ML IV ONE (08:42)
[2024-01-23] MEDS: POTASSIUM CHL 20MEQ/100ML 100 ML IV SCH (08:42)
[2024-01-23] MEDS ORDERED: MUPIROCIN 2% OINT 15gm or 22gm FOR MRSA NARES EACHNOSTRI SCH (10:00)
[2024-01-23] MEDS: SPIRONOLACTONE 25 MG TAB PO SCH (10:29)
[2024-01-23] MEDS: NIFEdipine ER 30 MG TAB PO SCH (10:30)
[2024-01-23] MEDS: LABETALOL HCL 20 MG/4 ML VL IV PRN (23:01)
[2024-01-24] VITALS (27 sets, daily range): BP systolic 100–150; BP diastolic 61–90; PULSE 69–96; RESP 13–29; TEMP 97.5–98.9; O2SAT 94–100
[2024-01-24 06:23] LABS: Albumin 2.5 g/dL (3.2-4.8); Alkaline Phosphatase 44 U/L (46-116); Anion Gap 2 (5-15); Aspartate Aminotransferase 30 U/L (13-40); BUN/Creatinine Ratio 8.2 (10.0-20.0); Blood Urea Nitrogen 8 mg/dL (9-23); Calcium 8.5 mg/dL (8.7-10.4); Carbon Dioxide 35 mmol/L (20-30); Chloride 100 mmol/L (98-107); Glucose 111 mg/dL (74-106); Magnesium 1.6 mg/dL (1.6-2.6); Potassium 3.5 mmol/L (3.5-5.1); Sodium 137 mmol/L (136-145)
[2024-01-24 06:24] LABS: Bilirubin, Total 0.3 mg/dL (0.2-1.0); Total Protein 6.3 g/dL (5.7-8.2)
[2024-01-24 06:25] LABS: Alanine Aminotransferase < 9 U/L (7-40)
[2024-01-24 06:27] LABS: Basophils # (auto) 0 10 ^3/uL (0-0.2); Basophils % (auto) 0.2 % (0.0-2.0); Eosinophils # (auto) 0.1 10 ^3/uL (0-0.8); Eosinophils % (auto) 1.6 % (0.0-7.0); Hematocrit 26.7 % (41.0-53.0); Hemoglobin 8.9 g/dL (13.5-17.5); Lymphocytes # (auto) 0.7 10 ^3/uL (0.4-5.4); Lymphocytes % (auto) 21.1 % (10.0-50.0); Mean Corpuscular Hemoglobin 33.8 pg (28.0-32.0); Mean Corpuscular Hgb Conc. 33.5 g/dL (32.0-36.0); Monocytes # (auto) 0.4 10 ^3/uL (0-1.3); Monocytes % (auto) 10.8 % (0.0-12.0); Neutrophils # (auto) 2.2 10 ^3/uL (1.6-8.6); Neutrophils % (auto) 66.3 % (37.0-80.0); Nucleated Red Blood Cells % 0.1 %; Platelet Count (auto) 175 10^3/uL (140-450); Red Blood Cells 2.64 10^6/uL (4.5-5.90); White Blood Cell 3.4 10^3/uL (4.4-10.8)
[2024-01-24 06:58] LABS: Red Cell Distribution Width 21.7 % (11.8-14.3)
[2024-01-24 08:43] LABS: Anisocytosis Slight; Macrocytosis Slight; Platelet Estimate Adequate
[2024-01-24] MEDS: MAGNESIUM SULFATE 1GM/100ML 100 ML IV ONE (13:45)
[2024-01-24] MEDS: CALCIUM GLUC 1,000mg/50ml-NS 50 ML IV SCH (14:09)
[2024-01-24] MEDS: POTASSIUM CHL 20MEQ/100ML 100 ML IV SCH (14:10)
[2024-01-25] VITALS (27 sets, daily range): BP systolic 114–154; BP diastolic 65–86; PULSE 75–100; RESP 12–33; TEMP 98.4–99; O2SAT 94–100
[2024-01-25 05:07] LABS: Basophils # (auto) 0 10 ^3/uL (0-0.2); Basophils % (auto) 0.2 % (0.0-2.0); Eosinophils # (auto) 0 10 ^3/uL (0-0.8); Eosinophils % (auto) 0.1 % (0.0-7.0); Lymphocytes # (auto) 0.7 10 ^3/uL (0.4-5.4); Monocytes # (auto) 0.4 10 ^3/uL (0-1.3); Neutrophils # (auto) 2.8 10 ^3/uL (1.6-8.6); White Blood Cell 3.9 10^3/uL (4.4-10.8)
[2024-01-25 05:10] LABS: Hematocrit 24.5 % (41.0-53.0); Hemoglobin 8.1 g/dL (13.5-17.5); Lymphocytes % (auto) 18.4 % (10.0-50.0); Mean Corpuscular Hemoglobin 33.5 pg (28.0-32.0); Mean Corpuscular Volume 101.4 fL (80.0-100.0); Monocytes % (auto) 10.2 % (0.0-12.0); Neutrophils % (auto) 71.1 % (37.0-80.0); Nucleated Red Blood Cells % 0.2 %; Platelet Count (auto) 186 10^3/uL (140-450); Red Blood Cells 2.41 10^6/uL (4.5-5.90)
[2024-01-25 05:13] LABS: Red Cell Distribution Width 20.8 % (11.8-14.3)
[2024-01-25 05:15] LABS: Chloride 100 mmol/L (98-107); Sodium 138 mmol/L (136-145)
[2024-01-25 05:16] LABS: Anion Gap 2 (5-15); Carbon Dioxide 36 mmol/L (20-30)
[2024-01-25 05:21] LABS: BUN/Creatinine Ratio 10.2 (10.0-20.0); Blood Urea Nitrogen 10 mg/dL (9-23); Glucose 102 mg/dL (74-106)
[2024-01-25 09:58] LABS: Base Excess 6.4 mmol/L (-2.0-2.0)
[2024-01-25] MEDS: MAGNESIUM SULFATE 1GM/100ML 100 ML IV ONE (10:59)
[2024-01-26] VITALS (27 sets, daily range): BP systolic 122–163; BP diastolic 75–89; PULSE 72–107; RESP 11–24; TEMP 98.8–100; O2SAT 78–100
[2024-01-26 05:22] LABS: Basophils # (auto) 0 10 ^3/uL (0-0.2); Basophils % (auto) 0.2 % (0.0-2.0); Eosinophils # (auto) 0 10 ^3/uL (0-0.8); Lymphocytes % (auto) 27.8 % (10.0-50.0); Monocytes # (auto) 0.4 10 ^3/uL (0-1.3); Neutrophils # (auto) 2.1 10 ^3/uL (1.6-8.6); Nucleated Red Blood Cells % 0.1 %; White Blood Cell 3.5 10^3/uL (4.4-10.8)
[2024-01-26 05:26] LABS: Eosinophils % (auto) 0.2 % (0.0-7.0); Hematocrit 25.2 % (41.0-53.0); Hemoglobin 8.4 g/dL (13.5-17.5); Mean Corpuscular Hemoglobin 33.4 pg (28.0-32.0); Mean Corpuscular Hgb Conc. 33.5 g/dL (32.0-36.0); Mean Corpuscular Volume 99.7 fL (80.0-100.0); Monocytes % (auto) 12.2 % (0.0-12.0); Neutrophils % (auto) 59.6 % (37.0-80.0); Platelet Count (auto) 198 10^3/uL (140-450); Red Blood Cells 2.53 10^6/uL (4.5-5.90)
[2024-01-26 05:28] LABS: Alkaline Phosphatase 40 U/L (46-116); Anion Gap 2 (5-15); Aspartate Aminotransferase 29 U/L (13-40); BUN/Creatinine Ratio 9.7 (10.0-20.0); Blood Urea Nitrogen 9 mg/dL (9-23); Calcium 8.6 mg/dL (8.7-10.4); Carbon Dioxide 37 mmol/L (20-30); Chloride 98 mmol/L (98-107); Glucose 86 mg/dL (74-106); Magnesium 1.6 mg/dL (1.6-2.6); Potassium 3.1 mmol/L (3.5-5.1); Sodium 137 mmol/L (136-145)
[2024-01-26 05:29] LABS: Albumin 2.5 g/dL (3.2-4.8); Bilirubin, Total 0.3 mg/dL (0.2-1.0); Total Protein 6.3 g/dL (5.7-8.2)
[2024-01-26 05:31] LABS: Red Cell Distribution Width 20.5 % (11.8-14.3)
[2024-01-26 05:37] LABS: Alanine Aminotransferase < 9 U/L (7-40)
[2024-01-26] MEDS ORDERED: POTASSIUM CHL 20MEQ/100ML 100 ML IV ONE (07:15)
[2024-01-26] MEDS ORDERED: MAGNESIUM SULFATE 1GM/100ML 100 ML IV ONE (07:15)
[2024-01-26] MEDS: CALCIUM GLUC 1,000mg/50ml-NS 50 ML IV SCH (07:44)
[2024-01-26] MEDS: POTASSIUM CHL 20MEQ/100ML 100 ML IV SCH (07:51)
[2024-01-26] MEDS: MAGNESIUM SULFATE 1GM/100ML 100 ML IV SCH (07:53)
[2024-01-26] MEDS: FUROSEMIDE 40 MG/4 ML VIAL IV SCH (09:42)
[2024-01-26] MEDS: amLODIPine BESYLATE 5 MG TAB PO SCH (09:45)
[2024-01-26] MEDS: ENOXAPARIN SOD 100 MG/1 ML SYRINGE SC SCH (09:47)
[2024-01-27] VITALS (22 sets, daily range): BP systolic 115–155; BP diastolic 68–100; PULSE 72–109; RESP 11–23; TEMP 97.5–99.5; O2SAT 94–100
[2024-01-27 05:44] LABS: Basophils # (auto) 0 10 ^3/uL (0-0.2); Basophils % (auto) 0.2 % (0.0-2.0); Eosinophils # (auto) 0 10 ^3/uL (0-0.8); Eosinophils % (auto) 0.1 % (0.0-7.0); Hematocrit 27.6 % (41.0-53.0); Hemoglobin 9.3 g/dL (13.5-17.5); Lymphocytes % (auto) 23.9 % (10.0-50.0); Mean Corpuscular Hemoglobin 33.3 pg (28.0-32.0); Mean Corpuscular Hgb Conc. 33.5 g/dL (32.0-36.0); Mean Corpuscular Volume 99.3 fL (80.0-100.0); Monocytes # (auto) 0.5 10 ^3/uL (0-1.3); Monocytes % (auto) 11.5 % (0.0-12.0); Neutrophils # (auto) 2.6 10 ^3/uL (1.6-8.6); Neutrophils % (auto) 64.3 % (37.0-80.0); Nucleated Red Blood Cells % 0.2 %; Platelet Count (auto) 226 10^3/uL (140-450); Red Blood Cells 2.78 10^6/uL (4.5-5.90); White Blood Cell 4.1 10^3/uL (4.4-10.8)
[2024-01-27 05:46] LABS: Red Cell Distribution Width 20.9 % (11.8-14.3)
[2024-01-27 06:03] LABS: Albumin 2.7 g/dL (3.2-4.8); Alkaline Phosphatase 42 U/L (46-116); Anion Gap 2 (5-15); Aspartate Aminotransferase 32 U/L (13-40); BUN/Creatinine Ratio 9.4 (10.0-20.0); Blood Urea Nitrogen 8 mg/dL (9-23); Calcium 8.9 mg/dL (8.7-10.4); Carbon Dioxide 38 mmol/L (20-30); Chloride 97 mmol/L (98-107); Glucose 100 mg/dL (74-106); Magnesium 1.8 mg/dL (1.6-2.6); Potassium 3.1 mmol/L (3.5-5.1); Sodium 137 mmol/L (136-145)
[2024-01-27 06:04] LABS: Bilirubin, Total 0.3 mg/dL (0.2-1.0); Phosphorus 1.9 mg/dL (2.4-5.1); Total Protein 6.8 g/dL (5.7-8.2)
[2024-01-27 06:05] LABS: Alanine Aminotransferase 9 U/L (7-40)
[2024-01-27] MEDS: POTASSIUM EFFERVESENT TAB 25 MEQ PO ONE (11:11)
[2024-01-27] MEDS: CALCIUM GLUC 1,000mg/50ml-NS 50 ML IV ONE (11:15)
[2024-01-27] MEDS: MAGNESIUM SULFATE 1GM/100ML 100 ML IV SCH (11:33)
[2024-01-27] MEDS: POTASSIUM PHOSPHATE 44 MEQ in D5W 5% 250 ML IV ONE (11:33)
[2024-01-27] MEDS: hydroCHLOROthiazide 25 MG TAB PO ONE (18:42)
[2024-01-27] MEDS: CALCIUM CARB 500 MG CHEW TAB PO SCH (18:42)
[2024-01-27] MEDS: MAGNESIUM OXIDE 400 MG TAB PO SCH (22:29)
[2024-01-27] MEDS: VALPROIC ACID 250 MG/5 ML ORAL SOLN PO SCH (22:29)
[2024-01-28] VITALS (73 sets, daily range): BP systolic 49–172; BP diastolic 24–91; PULSE 50–125; RESP 9–28; TEMP 97.5–98.9; O2SAT 97–100
[2024-01-28] MEDS: ETOMIDATE (2MG/ML) 20ML VIAL IV ONE (05:58)
[2024-01-28] MEDS: SUCCINYLCHOLINE CHLORIDE 20 MG/ML 10ML VIAL IV ONE (05:59)
[2024-01-28] MEDS: MIDAZOLAM DRIP 50 mg/50mL 50 ML IV ONE (06:35)
[2024-01-28] MEDS: MIDAZOLAM DRIP 50 mg/50mL 50 ML IV SCH (06:45)
[2024-01-28] MEDS: fentaNYL Drip 2500mCg/250mlNS 250 ML IV SCH (07:00)
[2024-01-28] MEDS: PROPOFOL 100 ML IV SCH (08:15)
[2024-01-28] MEDS: PANTOPRAZOLE 40 MG/10 ML VIAL INJ IV SCH (09:29)
[2024-01-28] MEDS: hydroCHLOROthiazide 25 MG TAB PO SCH (09:31)
[2024-01-28 10:14] LABS: Base Excess 14.8 mmol/L (-2.0-2.0)
[2024-01-28] MEDS: NOREPINEPHRINE 8 MG/250ML KIT 250 ML IV ONE (10:44)
[2024-01-28] MEDS: NOREPINEPHRINE 8 MG/250ML KIT 250 ML IV SCH (11:20)
[2024-01-28 13:54] LABS: Basophils # (auto) 0 10 ^3/uL (0-0.2); Basophils % (auto) 0.3 % (0.0-2.0); Eosinophils # (auto) 0 10 ^3/uL (0-0.8); Eosinophils % (auto) 0.1 % (0.0-7.0); Hematocrit 26.8 % (41.0-53.0); Hemoglobin 8.7 g/dL (13.5-17.5); Lymphocytes # (auto) 1.6 10 ^3/uL (0.4-5.4); Lymphocytes % (auto) 14.7 % (10.0-50.0); Mean Corpuscular Hemoglobin 32.4 pg (28.0-32.0); Mean Corpuscular Hgb Conc. 32.6 g/dL (32.0-36.0); Mean Corpuscular Volume 99.4 fL (80.0-100.0); Monocytes # (auto) 1.3 10 ^3/uL (0-1.3); Monocytes % (auto) 11.3 % (0.0-12.0); Neutrophils # (auto) 8.1 10 ^3/uL (1.6-8.6); Neutrophils % (auto) 73.6 % (37.0-80.0); Nucleated Red Blood Cells % 0.5 %; Platelet Count (auto) 317 10^3/uL (140-450); Red Blood Cells 2.69 10^6/uL (4.5-5.90); Red Cell Distribution Width 21.4 % (11.8-14.3)
[2024-01-28 14:04] LABS: Albumin 2.6 g/dL (3.2-4.8); Alkaline Phosphatase 40 U/L (46-116); Anion Gap 3 (5-15); Aspartate Aminotransferase 31 U/L (13-40); BUN/Creatinine Ratio 11.2 (10.0-20.0); Blood Urea Nitrogen 11 mg/dL (9-23); Calcium 8.8 mg/dL (8.7-10.4); Carbon Dioxide 39 mmol/L (20-30); Chloride 96 mmol/L (98-107); Glucose 77 mg/dL (74-106); Magnesium 1.9 mg/dL (1.6-2.6); Potassium 2.8 mmol/L (3.5-5.1); Sodium 138 mmol/L (136-145)
[2024-01-28 14:05] LABS: Bilirubin, Total 0.4 mg/dL (0.2-1.0); Phosphorus 2.2 mg/dL (2.4-5.1); Total Protein 6.3 g/dL (5.7-8.2)
[2024-01-28 14:10] LABS: Alanine Aminotransferase < 9 U/L (7-40)
[2024-01-28 14:25] LABS: Base Excess 14.7 mmol/L (-2.0-2.0)
[2024-01-28] MEDS: IOHEXOL 350 MG/ML 100ML IJ ONE (15:14)
[2024-01-28 16:04] LABS: Urine Bacteria FEW /hpf (None Seen); Urine Blood Negative /uL (Negative); Urine Clarity Clear (Clear); Urine Color Light-Yellow (Yellow); Urine Hyaline Cast MOD /lpf (0 - 2); Urine Protein, UAD TRACE (Negative); Urine Specific Gravity 1.014 (1.001-1.035); Urine Urobilinogen Normal (Negative); Urine WBC 11 /hpf (0 - 3)
[2024-01-28] MEDS: POTASSIUM CHL 20MEQ/100ML 100 ML IV SCH (17:03)
[2024-01-28] MEDS: MAGNESIUM SULFATE 1GM/100ML 100 ML IV ONE (17:03)
[2024-01-28] MEDS: PIPERACILLIN-TAZOB 3.375GM 100 ML IV SCH (17:05)
[2024-01-28 19:31] LABS: INR 1.24 (0.9-1.15); Prothrombin Time 12.9 sec (9.3-11.8)
[2024-01-28] MEDS: SODIUM PHOSPHATES 24 MEQ in SODIUM CHL 0.9% 100 ML IV ONE (22:17)
[2024-01-29] VITALS (110 sets, daily range): BP systolic 81–148; BP diastolic 36–76; PULSE 55–85; RESP 8–17; TEMP 96.6–98.6; O2SAT 98–100
[2024-01-29 04:05] LABS: Basophils # (auto) 0 10 ^3/uL (0-0.2); Eosinophils # (auto) 0 10 ^3/uL (0-0.8); Hemoglobin 9.6 g/dL (13.5-17.5); Monocytes # (auto) 1.1 10 ^3/uL (0-1.3); White Blood Cell 9.9 10^3/uL (4.4-10.8)
[2024-01-29 04:08] LABS: Basophils % (auto) 0.3 % (0.0-2.0); Eosinophils % (auto) 0.4 % (0.0-7.0); Hematocrit 29.6 % (41.0-53.0); Lymphocytes # (auto) 1.4 10 ^3/uL (0.4-5.4); Lymphocytes % (auto) 14.3 % (10.0-50.0); Mean Corpuscular Hgb Conc. 32.5 g/dL (32.0-36.0); Mean Corpuscular Volume 104.8 fL (80.0-100.0); Monocytes % (auto) 11.4 % (0.0-12.0); Neutrophils # (auto) 7.3 10 ^3/uL (1.6-8.6); Neutrophils % (auto) 73.6 % (37.0-80.0); Nucleated Red Blood Cells % 0.2 %; Platelet Count (auto) 216 10^3/uL (140-450); Red Blood Cells 2.83 10^6/uL (4.5-5.90); Red Cell Distribution Width 21.5 % (11.8-14.3)
[2024-01-29 04:25] LABS: Albumin 2.4 g/dL (3.2-4.8); Alkaline Phosphatase 42 U/L (46-116); Anion Gap 6 (5-15); Aspartate Aminotransferase 31 U/L (13-40); BUN/Creatinine Ratio 7.8 (10.0-20.0); Bilirubin, Total 0.3 mg/dL (0.2-1.0); Blood Urea Nitrogen 8 mg/dL (9-23); Calcium 8.8 mg/dL (8.7-10.4); Carbon Dioxide 32 mmol/L (20-30); Chloride 97 mmol/L (98-107); Glucose 118 mg/dL (74-106); Magnesium 2.3 mg/dL (1.6-2.6); Phosphorus 3.9 mg/dL (2.4-5.1); Potassium 4.3 mmol/L (3.5-5.1); Sodium 135 mmol/L (136-145); Total Protein 6.1 g/dL (5.7-8.2)
[2024-01-29 04:27] LABS: Alanine Aminotransferase < 9 U/L (7-40)
[2024-01-29] MEDS: VASOPRESSIN 20 UNITS in SODIUM CHL 0.9% 99 ML IV SCH (08:45)
[2024-01-29 09:36] LABS: Base Excess 9.4 mmol/L (-2.0-2.0)
[2024-01-29] MEDS: NOREPINEPHRINE BITARTRATE 32 MG in SODIUM CHL 0.9% 218 ML IV SCH (10:00)
[2024-01-29] MEDS: acetaZOLAMIDE SODIUM 500 MG VL IV ONE (14:36)
[2024-01-29 21:53] LABS: Hemoglobin 8.4 g/dL (13.5-17.5)
[2024-01-29] MEDS: levETIRAcetam 500 MG/5ML ORAL SOLN UD GT SCH (22:22)
[2024-01-30] VITALS (100 sets, daily range): BP systolic 46–256; BP diastolic 33–250; PULSE 54–93; RESP 10–24; TEMP 97.1–99.3; O2SAT 94–100
[2024-01-30 03:39] LABS: Basophils # (auto) 0 10 ^3/uL (0-0.2); Eosinophils # (auto) 0.1 10 ^3/uL (0-0.8); Hemoglobin 7.6 g/dL (13.5-17.5); Lymphocytes # (auto) 0.8 10 ^3/uL (0.4-5.4); Monocytes # (auto) 0.5 10 ^3/uL (0-1.3)
[2024-01-30 03:44] LABS: Basophils % (auto) 0.5 % (0.0-2.0); Eosinophils % (auto) 1.4 % (0.0-7.0); Hematocrit 23.1 % (41.0-53.0); Lymphocytes % (auto) 15.9 % (10.0-50.0); Mean Corpuscular Hemoglobin 33.3 pg (28.0-32.0); Mean Corpuscular Volume 100.7 fL (80.0-100.0); Monocytes % (auto) 9.9 % (0.0-12.0); Neutrophils # (auto) 3.7 10 ^3/uL (1.6-8.6); Neutrophils % (auto) 72.3 % (37.0-80.0); Nucleated Red Blood Cells % 0.2 %; Platelet Count (auto) 168 10^3/uL (140-450); Red Cell Distribution Width 22.2 % (11.8-14.3); White Blood Cell 5.1 10^3/uL (4.4-10.8)
[2024-01-30 03:49] LABS: Albumin 2.3 g/dL (3.2-4.8); Alkaline Phosphatase 39 U/L (46-116); Anion Gap 3 (5-15); Aspartate Aminotransferase 25 U/L (13-40); Blood Urea Nitrogen 11 mg/dL (9-23); Calcium 8.6 mg/dL (8.7-10.4); Carbon Dioxide 37 mmol/L (20-30); Chloride 96 mmol/L (98-107); Glucose 161 mg/dL (74-106); Potassium 3.4 mmol/L (3.5-5.1); Sodium 136 mmol/L (136-145)
[2024-01-30 03:50] LABS: Alanine Aminotransferase < 9 U/L (7-40); Bilirubin, Total 0.3 mg/dL (0.2-1.0); Total Protein 5.6 g/dL (5.7-8.2)
[2024-01-30] MEDS: POTASSIUM EFFERVESENT TAB 25 MEQ PO ONE (07:57)
[2024-01-30] MEDS: POTASSIUM CHL 20MEQ/100ML 100 ML IV ONE (07:58)
[2024-01-30 15:12] LABS: Hematocrit 19.6 % (41.0-53.0)
[2024-01-30 15:15] LABS: Hemoglobin 6.4 g/dL (13.5-17.5)
[2024-01-30 16:29] LABS: INR 1.16 (0.9-1.15); Partial Thromboplastin Time 33.1 SEC (24.5-34.5); Prothrombin Time 12.2 sec (9.3-11.8)
[2024-01-31] VITALS (108 sets, daily range): BP systolic 20–220; BP diastolic 15–204; PULSE 60–93; RESP 10–24; TEMP 97.4–98.9; O2SAT 9–100
[2024-01-31 04:17] LABS: Basophils # (auto) 0 10 ^3/uL (0-0.2); Basophils % (auto) 0.7 % (0.0-2.0); Eosinophils # (auto) 0.1 10 ^3/uL (0-0.8); Eosinophils % (auto) 1.8 % (0.0-7.0); Hematocrit 27.4 % (41.0-53.0); Hemoglobin 9.1 g/dL (13.5-17.5); Lymphocytes # (auto) 0.7 10 ^3/uL (0.4-5.4); Lymphocytes % (auto) 16.7 % (10.0-50.0); Mean Corpuscular Hemoglobin 31.2 pg (28.0-32.0); Mean Corpuscular Hgb Conc. 33.2 g/dL (32.0-36.0); Mean Corpuscular Volume 94.2 fL (80.0-100.0); Monocytes # (auto) 0.5 10 ^3/uL (0-1.3); Monocytes % (auto) 10.5 % (0.0-12.0); Neutrophils % (auto) 70.3 % (37.0-80.0); Nucleated Red Blood Cells % 0.2 %; Platelet Count (auto) 123 10^3/uL (140-450); Red Blood Cells 2.91 10^6/uL (4.5-5.90); Red Cell Distribution Width 25.9 % (11.8-14.3); White Blood Cell 4.3 10^3/uL (4.4-10.8)
[2024-01-31 04:31] LABS: Alanine Aminotransferase 10 U/L (7-40); Albumin 2.4 g/dL (3.2-4.8); Alkaline Phosphatase 35 U/L (46-116); Anion Gap 2 (5-15); Aspartate Aminotransferase 27 U/L (13-40); BUN/Creatinine Ratio 6.9 (10.0-20.0); Blood Urea Nitrogen 9 mg/dL (9-23); Calcium 8.5 mg/dL (8.7-10.4); Carbon Dioxide 36 mmol/L (20-30); Chloride 99 mmol/L (98-107); Magnesium 1.8 mg/dL (1.6-2.6); Potassium 3.2 mmol/L (3.5-5.1); Sodium 137 mmol/L (136-145)
[2024-01-31 04:32] LABS: Bilirubin, Total 0.4 mg/dL (0.2-1.0); Total Protein 5.4 g/dL (5.7-8.2)
[2024-01-31 04:38] LABS: Glucose 60 mg/dL (74-106)
[2024-01-31 04:51] LABS: Platelet Estimate Decreased
[2024-01-31 04:52] LABS: Anisocytosis Slight
[2024-01-31] MEDS: POTASSIUM CHL 20MEQ/100ML 100 ML IV SCH (08:52)
[2024-01-31] MEDS: MAGNESIUM SULFATE 1GM/100ML 100 ML IV SCH (08:56)
[2024-02-01] VITALS (104 sets, daily range): BP systolic 73–169; BP diastolic 41–92; PULSE 58–79; RESP 10–19; TEMP 97.2–98.8; O2SAT 100
[2024-02-01] MEDS: PHENobarbital SODIUM 130 MG/ML VL ONE (02:38)
[2024-02-01] MEDS: PHENobarbital SODIUM INJ 260 MG in SODIUM CHL 0.9% 100 ML IV ONE (02:40)
[2024-02-01 04:36] LABS: Basophils # (auto) 0 10 ^3/uL (0-0.2); Basophils % (auto) 0.5 % (0.0-2.0); Eosinophils # (auto) 0.1 10 ^3/uL (0-0.8); Eosinophils % (auto) 1.3 % (0.0-7.0); Hematocrit 27.8 % (41.0-53.0); Hemoglobin 9.4 g/dL (13.5-17.5); Lymphocytes # (auto) 0.8 10 ^3/uL (0.4-5.4); Lymphocytes % (auto) 15.4 % (10.0-50.0); Mean Corpuscular Hgb Conc. 33.7 g/dL (32.0-36.0); Monocytes # (auto) 0.5 10 ^3/uL (0-1.3); Monocytes % (auto) 9.2 % (0.0-12.0); Neutrophils % (auto) 73.6 % (37.0-80.0); Nucleated Red Blood Cells % 0.2 %; Platelet Count (auto) 101 10^3/uL (140-450); Red Blood Cells 2.93 10^6/uL (4.5-5.90); White Blood Cell 5.4 10^3/uL (4.4-10.8)
[2024-02-01 04:37] LABS: Red Cell Distribution Width 24.9 % (11.8-14.3)
[2024-02-01 04:53] LABS: Albumin 2.6 g/dL (3.2-4.8); Alkaline Phosphatase 36 U/L (46-116); Aspartate Aminotransferase 26 U/L (13-40); BUN/Creatinine Ratio 5.5 (10.0-20.0); Blood Urea Nitrogen 8 mg/dL (9-23); Chloride 95 mmol/L (98-107); Glucose 96 mg/dL (74-106); Magnesium 2.2 mg/dL (1.6-2.6); Potassium 3.2 mmol/L (3.5-5.1); Sodium 135 mmol/L (136-145)
[2024-02-01 04:54] LABS: Bilirubin, Total 0.3 mg/dL (0.2-1.0); Total Protein 5.8 g/dL (5.7-8.2)
[2024-02-01 05:05] LABS: Alanine Aminotransferase < 9 U/L (7-40)
[2024-02-01 05:23] LABS: Anion Gap 8 (5-15); Carbon Dioxide 32 mmol/L (20-30)
[2024-02-01 05:37] LABS: Anisocytosis Moderate; Platelet Estimate Decreased
[2024-02-01 05:38] LABS: Stomatocytes Few
[2024-02-01 07:54] LABS: Base Excess 5.3 mmol/L (-2.0-2.0)
[2024-02-01] MEDS: POTASSIUM CHL 20MEQ/100ML 100 ML IV SCH (08:56)
[2024-02-01] MEDS: PHENYTOIN IV DILANTIN 1,000 MG in SODIUM CHL 0.9% 250 ML IV ONE (12:15)
[2024-02-01] MEDS: PHENYTOIN SODIUM 50 MG/ML 2ML VIAL IV SCH (13:14)
[2024-02-01] MEDS: NOREPINEPHRINE BITARTRATE 32 MG in SODIUM CHL 0.9% 218 ML IV SCH (14:45)
[2024-02-01] MEDS: ENOXAPARIN SOD 40 MG/0.4 ML SYRINGE SC ONE (15:40)
[2024-02-01] MEDS: Jevity 1.2 Cal/Fiber 1 Liter GT SCH (21:59)
[2024-02-01] MEDS: ENOXAPARIN SOD 40 MG/0.4 ML SYRINGE SC SCH (22:00)
[2024-02-02] VITALS (104 sets, daily range): BP systolic 65–150; BP diastolic 42–110; PULSE 58–81; RESP 10–22; TEMP 97.5–98.4; O2SAT 89–100
[2024-02-02 03:32] LABS: Basophils # (auto) 0 10 ^3/uL (0-0.2); Basophils % (auto) 0.2 % (0.0-2.0); Eosinophils # (auto) 0.1 10 ^3/uL (0-0.8); Hematocrit 29.3 % (41.0-53.0); Hemoglobin 9.9 g/dL (13.5-17.5); Lymphocytes # (auto) 1.1 10 ^3/uL (0.4-5.4); Lymphocytes % (auto) 19.9 % (10.0-50.0); Mean Corpuscular Hemoglobin 32.2 pg (28.0-32.0); Mean Corpuscular Hgb Conc. 33.9 g/dL (32.0-36.0); Mean Corpuscular Volume 95.1 fL (80.0-100.0); Monocytes # (auto) 0.6 10 ^3/uL (0-1.3); Neutrophils # (auto) 3.9 10 ^3/uL (1.6-8.6); Neutrophils % (auto) 67.9 % (37.0-80.0); Nucleated Red Blood Cells % 0.5 %; Platelet Count (auto) 128 10^3/uL (140-450); Red Blood Cells 3.08 10^6/uL (4.5-5.90); White Blood Cell 5.7 10^3/uL (4.4-10.8)
[2024-02-02 03:33] LABS: Red Cell Distribution Width 24.7 % (11.8-14.3)
[2024-02-02 03:49] LABS: Albumin 2.7 g/dL (3.2-4.8); Alkaline Phosphatase 39 U/L (46-116); Anion Gap 7 (5-15); Aspartate Aminotransferase 26 U/L (13-40); BUN/Creatinine Ratio 5.9 (10.0-20.0); Bilirubin, Total 0.3 mg/dL (0.2-1.0); Blood Urea Nitrogen 8 mg/dL (9-23); Carbon Dioxide 33 mmol/L (20-30); Chloride 97 mmol/L (98-107); Glucose 83 mg/dL (74-106); Phosphorus 3.1 mg/dL (2.4-5.1); Potassium 3.4 mmol/L (3.5-5.1); Sodium 137 mmol/L (136-145)
[2024-02-02 04:01] LABS: Alanine Aminotransferase < 9 U/L (7-40)
[2024-02-02 04:11] LABS: Total Protein 6.2 g/dL (5.7-8.2)
[2024-02-02 08:22] LABS: Base Excess 4.7 mmol/L (-2.0-3.0)
[2024-02-02] MEDS: POTASSIUM CHL 20MEQ/100ML 100 ML IV SCH (09:03)
[2024-02-02] MEDS: PHENYTOIN SODIUM 50 MG/ML 2ML VIAL IV ONE (11:37)
[2024-02-02] MEDS: LEVALBUTEROL HCL 1.25 MG/3 ML NEB NEB SCH (18:32)
[2024-02-02] MEDS: IPRATROPIUM BROM 0.5 MG/2.5ML INH SOL NEB SCH (18:32)
[2024-02-03] VITALS (105 sets, daily range): BP systolic 78–150; BP diastolic 39–86; PULSE 62–85; RESP 11–19; TEMP 97.1–97.8; O2SAT 98–100
[2024-02-03 04:06] LABS: Basophils # (auto) 0 10 ^3/uL (0-0.2); Basophils % (auto) 0.2 % (0.0-2.0); Eosinophils # (auto) 0.2 10 ^3/uL (0-0.8); Eosinophils % (auto) 2.6 % (0.0-7.0); Hematocrit 29.1 % (41.0-53.0); Hemoglobin 9.8 g/dL (13.5-17.5); Lymphocytes # (auto) 1.2 10 ^3/uL (0.4-5.4); Lymphocytes % (auto) 19.5 % (10.0-50.0); Mean Corpuscular Hemoglobin 32.2 pg (28.0-32.0); Mean Corpuscular Hgb Conc. 33.7 g/dL (32.0-36.0); Mean Corpuscular Volume 95.8 fL (80.0-100.0); Monocytes # (auto) 0.8 10 ^3/uL (0-1.3); Monocytes % (auto) 13.5 % (0.0-12.0); Neutrophils # (auto) 3.8 10 ^3/uL (1.6-8.6); Neutrophils % (auto) 64.2 % (37.0-80.0); Nucleated Red Blood Cells % 0.2 %; Platelet Count (auto) 114 10^3/uL (140-450); Red Blood Cells 3.03 10^6/uL (4.5-5.90); White Blood Cell 5.9 10^3/uL (4.4-10.8)
[2024-02-03 04:15] LABS: Red Cell Distribution Width 24.1 % (11.8-14.3)
[2024-02-03 04:25] LABS: Albumin 2.6 g/dL (3.2-4.8); Alkaline Phosphatase 41 U/L (46-116); Anion Gap 5 (5-15); Aspartate Aminotransferase 25 U/L (13-40); BUN/Creatinine Ratio 6.8 (10.0-20.0); Bilirubin, Total 0.3 mg/dL (0.2-1.0); Blood Urea Nitrogen 9 mg/dL (9-23); Calcium 8.8 mg/dL (8.7-10.4); Carbon Dioxide 35 mmol/L (20-30); Chloride 100 mmol/L (98-107); Glucose 128 mg/dL (74-106); Magnesium 1.9 mg/dL (1.6-2.6); Phosphorus 3.6 mg/dL (2.4-5.1); Potassium 3.6 mmol/L (3.5-5.1); Sodium 140 mmol/L (136-145); Total Protein 6.1 g/dL (5.7-8.2)
[2024-02-03 04:27] LABS: Alanine Aminotransferase < 9 U/L (7-40)
[2024-02-03 06:38] LABS: Base Excess 6.8 mmol/L (-2.0-3.0)
[2024-02-03] MEDS: POTASSIUM CHL 20MEQ/100ML 100 ML IV ONE (10:41)
[2024-02-04] VITALS (107 sets, daily range): BP systolic 81–134; BP diastolic 48–83; PULSE 73–93; RESP 10–22; TEMP 97.6–98.8; O2SAT 95–100
[2024-02-04 04:01] LABS: Basophils # (auto) 0 10 ^3/uL (0-0.2); Basophils % (auto) 0.4 % (0.0-2.0); Eosinophils # (auto) 0.1 10 ^3/uL (0-0.8); Eosinophils % (auto) 2.2 % (0.0-7.0); Hematocrit 27.8 % (41.0-53.0); Hemoglobin 9.4 g/dL (13.5-17.5); Lymphocytes # (auto) 1.1 10 ^3/uL (0.4-5.4); Lymphocytes % (auto) 22.7 % (10.0-50.0); Mean Corpuscular Hemoglobin 32.6 pg (28.0-32.0); Mean Corpuscular Hgb Conc. 33.9 g/dL (32.0-36.0); Monocytes # (auto) 0.7 10 ^3/uL (0-1.3); Monocytes % (auto) 15.3 % (0.0-12.0); Neutrophils # (auto) 2.8 10 ^3/uL (1.6-8.6); Neutrophils % (auto) 59.4 % (37.0-80.0); Nucleated Red Blood Cells % 0.3 %; Platelet Count (auto) 93 10^3/uL (140-450); Red Blood Cells 2.89 10^6/uL (4.5-5.90); White Blood Cell 4.7 10^3/uL (4.4-10.8)
[2024-02-04 04:09] LABS: Chloride 101 mmol/L (98-107); Potassium 3.9 mmol/L (3.5-5.1); Sodium 140 mmol/L (136-145)
[2024-02-04 04:10] LABS: Anion Gap 6 (5-15); Calcium 8.7 mg/dL (8.7-10.4); Carbon Dioxide 33 mmol/L (20-30)
[2024-02-04 04:15] LABS: BUN/Creatinine Ratio 7.1 (10.0-20.0); Blood Urea Nitrogen 9 mg/dL (9-23); Glucose 131 mg/dL (74-106)
[2024-02-04 04:18] LABS: INR 1.07 (0.9-1.15); Partial Thromboplastin Time 37.3 SEC (24.5-34.5); Prothrombin Time 11.3 sec (9.3-11.8); Red Cell Distribution Width 24.6 % (11.8-14.3)
[2024-02-04 06:48] LABS: Anisocytosis Moderate
[2024-02-04 06:49] LABS: Platelet Estimate Decreased
[2024-02-04 07:01] LABS: Ovalocytes FEW
[2024-02-04 07:58] LABS: Base Excess 5.9 mmol/L (-2.0-3.0)
[2024-02-04] MEDS: ceFAZolin 1GM/50ML 50 ML IV ONE (09:30)
[2024-02-05] VITALS (101 sets, daily range): BP systolic 73–148; BP diastolic 46–86; PULSE 70–97; RESP 11–26; TEMP 97.4–98.7; O2SAT 93–100
[2024-02-05 03:57] LABS: Hematocrit 26.5 % (41.0-53.0); Hemoglobin 8.6 g/dL (13.5-17.5); Mean Corpuscular Hemoglobin 31.3 pg (28.0-32.0); Mean Corpuscular Hgb Conc. 32.5 g/dL (32.0-36.0); Mean Corpuscular Volume 96.2 fL (80.0-100.0); Platelet Count (auto) 93 10^3/uL (140-450); Red Blood Cells 2.76 10^6/uL (4.5-5.90); Red Cell Distribution Width 25.2 % (11.8-14.3); White Blood Cell 4.9 10^3/uL (4.4-10.8)
[2024-02-05 04:03] LABS: Basophils % (manual) 0 (0.0-2.0); Blast Cells 0; Eosinophils % (manual) 0 (0-7); Metamyelocytes % 0; Myelocytes % 0; Promyelocytes % 0; Reactive Lymphocytes 0
[2024-02-05 04:12] LABS: Calcium 8.5 mg/dL (8.7-10.4); Chloride 101 mmol/L (98-107); Potassium 3.9 mmol/L (3.5-5.1); Sodium 141 mmol/L (136-145)
[2024-02-05 04:13] LABS: Anion Gap 7 (5-15); Carbon Dioxide 33 mmol/L (20-30)
[2024-02-05 04:18] LABS: BUN/Creatinine Ratio 7.2 (10.0-20.0); Blood Urea Nitrogen 9 mg/dL (9-23); Glucose 112 mg/dL (74-106)
[2024-02-05 04:19] LABS: Magnesium 1.9 mg/dL (1.6-2.6)
[2024-02-05 04:20] LABS: Phosphorus 4.2 mg/dL (2.4-5.1)
[2024-02-05 05:00] LABS: Anisocytosis Moderate; Band Neutrophils % (manual) 1; Lymphocytes % (manual) 37 (10.0-50.0); Monocytes % (manual) 13 (0-12); Platelet Estimate Decreased; Stomatocytes Few
[2024-02-05] MEDS ORDERED: KETAMINE 50mg/ML 1ml syringe ONE (06:53)
[2024-02-05] MEDS ORDERED: LIDOCAINE 1% INJ PF 5ML AMP ONE (06:53)
[2024-02-05] MEDS ORDERED: fentaNYL CITRATE 100 MCG/2 ML VL ONE ×2 (06:53→07:46)
[2024-02-05] MEDS ORDERED: SODIUM CHLORIDE LOCK 10 ML ONE (06:53)
[2024-02-05] MEDS ORDERED: PROPOFOL 10 MG/ML 20 ML IV ONE (06:53)
[2024-02-05] MEDS ORDERED: MEPERIDINE HCL (50 MG/ML) 1 ML VIAL ONE (06:53)
[2024-02-05] MEDS ORDERED: MIDAZOLAM HCL 2MG/2ML 2ml VIAL (1mg/ml) ONE (06:53)
[2024-02-05 07:36] LABS: Base Excess 8.4 mmol/L (-2.0-3.0)
[2024-02-05] MEDS ORDERED: NALOXONE HCL 0.4 MG/ML VIAL ONE (08:20)
[2024-02-05] MEDS ORDERED: FLUMAZENIL 0.1 MG/ML INJ 10ML MDV IV ONE (08:20)
[2024-02-05] MEDS: CALCITRIOL 1 MCG/ML AMPULE IV SCH (10:00)
[2024-02-05] MEDS: fentaNYL Drip 2500mCg/250mlNS 250 ML IV SCH (10:09)
[2024-02-05] MEDS: FUROSEMIDE 20 MG/2 ML VIAL IV SCH (10:10)
[2024-02-05] MEDS: ceFAZolin 1GM/50ML 50 ML IV ONE (10:39)
[2024-02-05] MEDS: LIDOCAINE 2% JELLY 11ml (GLYDO) ONE (15:40)
[2024-02-05] MEDS: LIDOCAINE W/ EPINEPHRINE 1% 20ML VIAL ONE (15:40)
[2024-02-05] MEDS: BUPIVACAINE HCL 0.25% P/F 10 ML VIAL ONE (15:40)
[2024-02-05] MEDS: SUCCINYLCHOLINE CHLORIDE 20 MG/ML 10ML VIAL IV ONE (16:26)
[2024-02-05] MEDS: ROCURONIUM 10MG/ML 10ML VIAL IV ONE ×2 (16:27→16:28)
[2024-02-06] VITALS (116 sets, daily range): BP systolic 57–156; BP diastolic 28–78; PULSE 63–112; RESP 9–20; TEMP 97–99.8; O2SAT 90–100
[2024-02-06 02:32] LABS: Basophils # (auto) 0 10 ^3/uL (0-0.2); Basophils % (auto) 0.4 % (0.0-2.0); Eosinophils # (auto) 0 10 ^3/uL (0-0.8); Eosinophils % (auto) 0.2 % (0.0-7.0); Hematocrit 28.8 % (41.0-53.0); Hemoglobin 9.7 g/dL (13.5-17.5); Lymphocytes # (auto) 1.4 10 ^3/uL (0.4-5.4); Lymphocytes % (auto) 20.7 % (10.0-50.0); Mean Corpuscular Hemoglobin 32.4 pg (28.0-32.0); Mean Corpuscular Hgb Conc. 33.6 g/dL (32.0-36.0); Mean Corpuscular Volume 96.7 fL (80.0-100.0); Monocytes # (auto) 0.6 10 ^3/uL (0-1.3); Monocytes % (auto) 8.2 % (0.0-12.0); Neutrophils # (auto) 4.8 10 ^3/uL (1.6-8.6); Neutrophils % (auto) 70.5 % (37.0-80.0); Nucleated Red Blood Cells % 0.4 %; Platelet Count (auto) 125 10^3/uL (140-450); Red Blood Cells 2.98 10^6/uL (4.5-5.90); Red Cell Distribution Width 25.1 % (11.8-14.3); White Blood Cell 6.9 10^3/uL (4.4-10.8)
[2024-02-06 02:45] LABS: Chloride 104 mmol/L (98-107); Potassium 3.7 mmol/L (3.5-5.1); Sodium 141 mmol/L (136-145)
[2024-02-06 02:46] LABS: Anion Gap 5 (5-15); Calcium 8.4 mg/dL (8.7-10.4); Carbon Dioxide 32 mmol/L (20-30)
[2024-02-06 02:51] LABS: Blood Urea Nitrogen 11 mg/dL (9-23); Glucose 132 mg/dL (74-106)
[2024-02-06 02:52] LABS: Magnesium 1.9 mg/dL (1.6-2.6)
[2024-02-06 02:53] LABS: Phosphorus 3.7 mg/dL (2.4-5.1)
[2024-02-06] MEDS: Ensure Enlive Vanilla 8oz Bottle PO SCH (05:01)
[2024-02-06 07:13] LABS: Base Excess 6.8 mmol/L (-2.0-3.0)
[2024-02-07] VITALS (111 sets, daily range): BP systolic 85–121; BP diastolic 45–78; PULSE 66–82; RESP 11–22; TEMP 97.3–98.1; O2SAT 98–100
[2024-02-07 10:39] LABS: INR 1.23 (0.9-1.15); Partial Thromboplastin Time 33.2 SEC (24.5-34.5); Prothrombin Time 12.8 sec (9.3-11.8)
[2024-02-07 10:50] LABS: Basophils # (auto) 0.1 10 ^3/uL (0-0.2); Basophils % (auto) 0.7 % (0.0-2.0); Eosinophils # (auto) 0.1 10 ^3/uL (0-0.8); Eosinophils % (auto) 0.7 % (0.0-7.0); Hematocrit 26.5 % (41.0-53.0); Hemoglobin 8.7 g/dL (13.5-17.5); Lymphocytes # (auto) 2.4 10 ^3/uL (0.4-5.4); Lymphocytes % (auto) 23.8 % (10.0-50.0); Mean Corpuscular Hemoglobin 31.6 pg (28.0-32.0); Mean Corpuscular Hgb Conc. 32.9 g/dL (32.0-36.0); Mean Corpuscular Volume 96.3 fL (80.0-100.0); Monocytes # (auto) 1.4 10 ^3/uL (0-1.3); Monocytes % (auto) 14.2 % (0.0-12.0); Neutrophils # (auto) 6.1 10 ^3/uL (1.6-8.6); Neutrophils % (auto) 60.6 % (37.0-80.0); Nucleated Red Blood Cells % 0.2 %; Platelet Count (auto) 152 10^3/uL (140-450); Red Blood Cells 2.75 10^6/uL (4.5-5.90); White Blood Cell 10.1 10^3/uL (4.4-10.8)
[2024-02-07 10:53] LABS: Chloride 102 mmol/L (98-107); Potassium 3.6 mmol/L (3.5-5.1); Sodium 139 mmol/L (136-145)
[2024-02-07 10:56] LABS: Anion Gap 4 (5-15); Carbon Dioxide 33 mmol/L (20-30)
[2024-02-07 10:57] LABS: Calcium 8.7 mg/dL (8.7-10.4)
[2024-02-07 11:01] LABS: Glucose 103 mg/dL (74-106)
[2024-02-07 11:02] LABS: Alkaline Phosphatase 60 U/L (46-116); BUN/Creatinine Ratio 9.7 (10.0-20.0); Blood Urea Nitrogen 14 mg/dL (9-23); Magnesium 1.9 mg/dL (1.6-2.6)
[2024-02-07 11:03] LABS: Albumin 2.5 g/dL (3.2-4.8); Aspartate Aminotransferase 31 U/L (13-40)
[2024-02-07 11:04] LABS: Bilirubin, Total 0.2 mg/dL (0.2-1.0); Phosphorus 3.3 mg/dL (2.4-5.1)
[2024-02-07 11:28] LABS: Red Cell Distribution Width 25.5 % (11.8-14.3)
[2024-02-07 11:36] LABS: Alanine Aminotransferase < 9 U/L (7-40)
[2024-02-07] MEDS: SODIUM CHLORIDE 0.9% 1,000 ML IV SCH (13:55)
[2024-02-07] MEDS: PROPOFOL 100 ML IV SCH (21:11)
[2024-02-08] VITALS (110 sets, daily range): BP systolic 81–134; BP diastolic 50–81; PULSE 54–81; RESP 11–21; TEMP 96.9–98.4; O2SAT 99–100
[2024-02-08 04:15] LABS: Albumin 2.5 g/dL (3.2-4.8); Alkaline Phosphatase 61 U/L (46-116); Anion Gap 6 (5-15); Aspartate Aminotransferase 25 U/L (13-40); Basophils # (auto) 0 10 ^3/uL (0-0.2); Basophils % (auto) 0.4 % (0.0-2.0); Blood Urea Nitrogen 12 mg/dL (9-23); Calcium 8.6 mg/dL (8.7-10.4); Carbon Dioxide 32 mmol/L (20-30); Chloride 105 mmol/L (98-107); Eosinophils # (auto) 0.1 10 ^3/uL (0-0.8); Glucose 86 mg/dL (74-106); Hematocrit 25.2 % (41.0-53.0); Hemoglobin 8.6 g/dL (13.5-17.5); Lymphocytes # (auto) 1.8 10 ^3/uL (0.4-5.4); Lymphocytes % (auto) 22.9 % (10.0-50.0); Magnesium 1.9 mg/dL (1.6-2.6); Mean Corpuscular Hemoglobin 32.6 pg (28.0-32.0); Mean Corpuscular Hgb Conc. 33.9 g/dL (32.0-36.0); Mean Corpuscular Volume 96.1 fL (80.0-100.0); Monocytes # (auto) 1.1 10 ^3/uL (0-1.3); Monocytes % (auto) 13.8 % (0.0-12.0); Neutrophils # (auto) 4.9 10 ^3/uL (1.6-8.6); Neutrophils % (auto) 61.9 % (37.0-80.0); Nucleated Red Blood Cells % 0.2 %; Platelet Count (auto) 129 10^3/uL (140-450); Potassium 2.9 mmol/L (3.5-5.1); Red Blood Cells 2.63 10^6/uL (4.5-5.90); Sodium 143 mmol/L (136-145)
[2024-02-08 04:16] LABS: Bilirubin, Total 0.2 mg/dL (0.2-1.0); Phosphorus 2.8 mg/dL (2.4-5.1); Total Protein 5.8 g/dL (5.7-8.2)
[2024-02-08 04:22] LABS: Alanine Aminotransferase < 9 U/L (7-40)
[2024-02-08 04:27] LABS: Red Cell Distribution Width 25.3 % (11.8-14.3)
[2024-02-08 05:03] LABS: Anisocytosis Moderate; Ovalocytes FEW; Platelet Estimate Decreased
[2024-02-08 05:04] LABS: Stomatocytes Few
[2024-02-08] MEDS: POTASSIUM EFFERVESENT TAB 25 MEQ GT ONE (06:09)
[2024-02-08] MEDS: POTASSIUM CHL 20MEQ/100ML 100 ML IV SCH (09:52)
[2024-02-09] VITALS (107 sets, daily range): BP systolic 82–132; BP diastolic 51–85; PULSE 70–93; RESP 11–24; TEMP 97.4–98.4; O2SAT 77–100
[2024-02-09 04:36] LABS: Hemoglobin 8.1 g/dL (13.5-17.5); White Blood Cell 6.4 10^3/uL (4.4-10.8)
[2024-02-09 04:39] LABS: Hematocrit 23.8 % (41.0-53.0); Mean Corpuscular Hemoglobin 33.1 pg (28.0-32.0); Mean Corpuscular Volume 97.2 fL (80.0-100.0); Platelet Count (auto) 132 10^3/uL (140-450); Red Blood Cells 2.45 10^6/uL (4.5-5.90)
[2024-02-09 04:47] LABS: Chloride 108 mmol/L (98-107); Sodium 141 mmol/L (136-145)
[2024-02-09 04:48] LABS: Anion Gap 4 (5-15); Carbon Dioxide 29 mmol/L (20-30)
[2024-02-09 04:50] LABS: Red Cell Distribution Width 26.1 % (11.8-14.3)
[2024-02-09 04:52] LABS: Basophils % (manual) 0 (0.0-2.0); Blast Cells 0; Metamyelocytes % 0; Myelocytes % 0; Promyelocytes % 0; Reactive Lymphocytes 0
[2024-02-09 04:53] LABS: Glucose 115 mg/dL (74-106)
[2024-02-09 04:54] LABS: BUN/Creatinine Ratio 8.1 (10.0-20.0); Blood Urea Nitrogen 10 mg/dL (9-23); Magnesium 1.9 mg/dL (1.6-2.6)
[2024-02-09 04:56] LABS: Phosphorus 2.8 mg/dL (2.4-5.1)
[2024-02-09 08:06] LABS: Base Excess 3.6 mmol/L (-2.0-3.0)
[2024-02-09 08:07] LABS: Anisocytosis Slight; Band Neutrophils % (manual) 5; Eosinophils % (manual) 1 (0-7); Lymphocytes % (manual) 30 (10.0-50.0); Monocytes % (manual) 8 (0-12); Platelet Estimate Decreased
[2024-02-09 08:08] LABS: Ovalocytes FEW
[2024-02-09] MEDS: methylPREDNISolone SOD SUCC 40 MG/ML VL IV SCH (09:33)
[2024-02-09] MEDS: FUROSEMIDE 40 MG/4 ML VIAL IV SCH (09:34)
[2024-02-09] MEDS: CALCIUM GLUC 1,000mg/50ml-NS 50 ML IV ONE (10:40)
[2024-02-10] VITALS (110 sets, daily range): BP systolic 83–129; BP diastolic 50–79; PULSE 68–91; RESP 11–23; TEMP 96.6–98.4; O2SAT 83–100
[2024-02-10 04:20] LABS: Hemoglobin 9.5 g/dL (13.5-17.5); Mean Corpuscular Hemoglobin 33.4 pg (28.0-32.0); Mean Corpuscular Hgb Conc. 34.1 g/dL (32.0-36.0); Mean Corpuscular Volume 97.8 fL (80.0-100.0); Platelet Count (auto) 158 10^3/uL (140-450); Red Blood Cells 2.86 10^6/uL (4.5-5.90); White Blood Cell 6.8 10^3/uL (4.4-10.8)
[2024-02-10 04:25] LABS: Basophils % (manual) 0 (0.0-2.0); Blast Cells 0; Eosinophils % (manual) 0 (0-7); Metamyelocytes % 0; Myelocytes % 0; Promyelocytes % 0; Reactive Lymphocytes 0
[2024-02-10 04:36] LABS: Albumin 2.7 g/dL (3.2-4.8); Alkaline Phosphatase 70 U/L (46-116); Anion Gap 8 (5-15); Aspartate Aminotransferase 23 U/L (13-40); BUN/Creatinine Ratio 8.8 (10.0-20.0); Blood Urea Nitrogen 11 mg/dL (9-23); Calcium 8.6 mg/dL (8.7-10.4); Carbon Dioxide 26 mmol/L (20-30); Chloride 106 mmol/L (98-107); Glucose 123 mg/dL (74-106); Potassium 4.2 mmol/L (3.5-5.1); Sodium 140 mmol/L (136-145)
[2024-02-10 04:37] LABS: Bilirubin, Total 0.2 mg/dL (0.2-1.0); Phosphorus 4.6 mg/dL (2.4-5.1); Total Protein 6.6 g/dL (5.7-8.2)
[2024-02-10 04:43] LABS: Alanine Aminotransferase < 9 U/L (7-40)
[2024-02-10 06:00] LABS: Anisocytosis Moderate; Band Neutrophils % (manual) 1; Lymphocytes % (manual) 20 (10.0-50.0); Monocytes % (manual) 5 (0-12); Platelet Estimate Adequate
[2024-02-10 06:01] LABS: Ovalocytes FEW; Stomatocytes Few
[2024-02-10 08:10] LABS: Base Excess 1.1 mmol/L (-2.0-3.0)
[2024-02-10] MEDS ORDERED: CALCIUM GLUC 1,000mg/50ml-NS 50 ML IV SCH (10:15)
[2024-02-10] MEDS: CALCIUM GLUC 1,000mg/50ml-NS 50 ML IV SCH (10:31)
[2024-02-10 21:10] LABS: Base Excess 4.4 mmol/L (-2.0-3.0)
[2024-02-11] VITALS (107 sets, daily range): BP systolic 78–132; BP diastolic 46–73; PULSE 71–89; RESP 11–22; TEMP 97.4–98.8; O2SAT 59–100
[2024-02-11 04:20] LABS: Basophils # (auto) 0 10 ^3/uL (0-0.2); Basophils % (auto) 0.2 % (0.0-2.0); Eosinophils # (auto) 0 10 ^3/uL (0-0.8); Eosinophils % (auto) 0.2 % (0.0-7.0); Hematocrit 27.5 % (41.0-53.0); Hemoglobin 9.4 g/dL (13.5-17.5); Lymphocytes # (auto) 1.8 10 ^3/uL (0.4-5.4); Lymphocytes % (auto) 18.1 % (10.0-50.0); Mean Corpuscular Hemoglobin 33.7 pg (28.0-32.0); Mean Corpuscular Hgb Conc. 34.2 g/dL (32.0-36.0); Mean Corpuscular Volume 98.6 fL (80.0-100.0); Monocytes # (auto) 1.6 10 ^3/uL (0-1.3); Monocytes % (auto) 16.3 % (0.0-12.0); Neutrophils # (auto) 6.4 10 ^3/uL (1.6-8.6); Neutrophils % (auto) 65.2 % (37.0-80.0); Nucleated Red Blood Cells % 0.1 %; Platelet Count (auto) 176 10^3/uL (140-450); Red Blood Cells 2.79 10^6/uL (4.5-5.90); White Blood Cell 9.8 10^3/uL (4.4-10.8)
[2024-02-11 04:21] LABS: Red Cell Distribution Width 25.4 % (11.8-14.3)
[2024-02-11 04:24] LABS: Anion Gap 7 (5-15); Carbon Dioxide 29 mmol/L (20-30); Chloride 105 mmol/L (98-107); Potassium 3.8 mmol/L (3.5-5.1); Sodium 141 mmol/L (136-145)
[2024-02-11 04:30] LABS: BUN/Creatinine Ratio 11.1 (10.0-20.0); Blood Urea Nitrogen 14 mg/dL (9-23); Glucose 148 mg/dL (74-106)
[2024-02-11 04:32] LABS: Phosphorus 4.4 mg/dL (2.4-5.1)
[2024-02-11 08:04] LABS: Base Excess 3.7 mmol/L (-2.0-3.0)
[2024-02-11] MEDS: methylPREDNISolone SOD SUCC 40 MG/ML VL IV SCH (09:41)
[2024-02-11] MEDS ORDERED: fentaNYL Drip 2500mCg/250mlNS 250 ML IV SCH (10:15)
[2024-02-11] MEDS: FUROSEMIDE 40 MG/4 ML VIAL IV SCH (11:11)
[2024-02-11] MEDS: fentaNYL Drip 2500mCg/250mlNS 250 ML IV SCH (11:16)
[2024-02-12] VITALS (112 sets, daily range): BP systolic 91–128; BP diastolic 33–74; PULSE 66–86; RESP 11–22; TEMP 97.6–98.7; O2SAT 94–100
[2024-02-12 04:21] LABS: Basophils # (auto) 0 10 ^3/uL (0-0.2); Basophils % (auto) 0.3 % (0.0-2.0); Chloride 104 mmol/L (98-107); Eosinophils # (auto) 0 10 ^3/uL (0-0.8); Eosinophils % (auto) 0.2 % (0.0-7.0); Hematocrit 25.3 % (41.0-53.0); Hemoglobin 8.5 g/dL (13.5-17.5); Lymphocytes % (auto) 21.6 % (10.0-50.0); Mean Corpuscular Hgb Conc. 33.6 g/dL (32.0-36.0); Mean Corpuscular Volume 98.2 fL (80.0-100.0); Monocytes # (auto) 1.3 10 ^3/uL (0-1.3); Monocytes % (auto) 13.8 % (0.0-12.0); Neutrophils % (auto) 64.1 % (37.0-80.0); Nucleated Red Blood Cells % 0.3 %; Platelet Count (auto) 159 10^3/uL (140-450); Potassium 4.1 mmol/L (3.5-5.1); Red Blood Cells 2.58 10^6/uL (4.5-5.90); Red Cell Distribution Width 25.9 % (11.8-14.3); Sodium 140 mmol/L (136-145); White Blood Cell 9.4 10^3/uL (4.4-10.8)
[2024-02-12 04:22] LABS: Anion Gap 3 (5-15); Carbon Dioxide 33 mmol/L (20-30)
[2024-02-12 04:27] LABS: Glucose 139 mg/dL (74-106)
[2024-02-12 04:28] LABS: BUN/Creatinine Ratio 11.9 (10.0-20.0); Blood Urea Nitrogen 14 mg/dL (9-23)
[2024-02-12 04:53] LABS: Anisocytosis Slight
[2024-02-12 04:55] LABS: Stomatocytes Moderate
[2024-02-12 04:56] LABS: Platelet Estimate Adequate
[2024-02-12] MEDS ORDERED: LIDOCAINE 2% JELLY 11ml (GLYDO) ONE (06:50)
[2024-02-12] MEDS ORDERED: LIDOCAINE 2%HCL (LOCAL ANESTH.) INJ 20ML MDV ONE (06:51)
[2024-02-12] MEDS ORDERED: fentaNYL CITRATE 100 MCG/2 ML VL ONE (06:51)
[2024-02-12] MEDS ORDERED: MIDAZOLAM HCL 2MG/2ML 2ml VIAL (1mg/ml) ONE (06:51)
[2024-02-12] MEDS ORDERED: EPINEPHrine HCL 1 MG/1 ML AMP ONE (06:52)
[2024-02-12] MEDS ORDERED: NALOXONE HCL 0.4 MG/ML VIAL ONE (07:05)
[2024-02-12] MEDS ORDERED: FLUMAZENIL 0.1 MG/ML INJ 10ML MDV IV ONE (07:05)
[2024-02-12 07:56] LABS: Base Excess 7.9 mmol/L (-2.0-3.0)
[2024-02-12] MEDS: Jevity 1.2 Cal/Fiber 1 Liter GT SCH (21:44)
[2024-02-13] VITALS (110 sets, daily range): BP systolic 84–129; BP diastolic 33–68; PULSE 65–75; RESP 11–21; TEMP 97.5–98.7; O2SAT 62–100
[2024-02-13 04:11] LABS: Basophils # (auto) 0 10 ^3/uL (0-0.2); Basophils % (auto) 0.2 % (0.0-2.0); Eosinophils # (auto) 0 10 ^3/uL (0-0.8); Lymphocytes # (auto) 1.9 10 ^3/uL (0.4-5.4); Monocytes # (auto) 1.1 10 ^3/uL (0-1.3)
[2024-02-13 04:14] LABS: Eosinophils % (auto) 0.6 % (0.0-7.0); Hematocrit 23.6 % (41.0-53.0); Hemoglobin 8.1 g/dL (13.5-17.5); Mean Corpuscular Hemoglobin 33.8 pg (28.0-32.0); Mean Corpuscular Hgb Conc. 34.4 g/dL (32.0-36.0); Mean Corpuscular Volume 98.3 fL (80.0-100.0); Monocytes % (auto) 15.3 % (0.0-12.0); Neutrophils # (auto) 4.4 10 ^3/uL (1.6-8.6); Neutrophils % (auto) 58.9 % (37.0-80.0); Nucleated Red Blood Cells % 0.3 %; Platelet Count (auto) 148 10^3/uL (140-450); Red Cell Distribution Width 26.6 % (11.8-14.3); White Blood Cell 7.5 10^3/uL (4.4-10.8)
[2024-02-13 04:29] LABS: Chloride 105 mmol/L (98-107); Potassium 3.9 mmol/L (3.5-5.1); Sodium 139 mmol/L (136-145)
[2024-02-13 04:30] LABS: Anion Gap 0 (5-15); Carbon Dioxide 34 mmol/L (20-30)
[2024-02-13 04:35] LABS: BUN/Creatinine Ratio 15.2 (10.0-20.0); Blood Urea Nitrogen 17 mg/dL (9-23); Glucose 121 mg/dL (74-106)
[2024-02-13 04:37] LABS: Phosphorus 4.1 mg/dL (2.4-5.1)
[2024-02-13] MEDS: PIPERACILLIN-TAZO 4.5GM 100 ML IV ONE (11:06)
[2024-02-13] MEDS: PIPERACILLIN-TAZO 4.5GM 100 ML IV SCH (18:33)
[2024-02-14] VITALS (114 sets, daily range): BP systolic 80–145; BP diastolic 33–74; PULSE 66–93; RESP 10–21; TEMP 97.3–99.9; O2SAT 62–100
[2024-02-14 07:09] LABS: Hemoglobin 8.1 g/dL (13.5-17.5); White Blood Cell 6.2 10^3/uL (4.4-10.8)
[2024-02-14 07:11] LABS: Hematocrit 23.7 % (41.0-53.0); Mean Corpuscular Hemoglobin 33.6 pg (28.0-32.0); Mean Corpuscular Hgb Conc. 34.3 g/dL (32.0-36.0); Mean Corpuscular Volume 97.9 fL (80.0-100.0); Platelet Count (auto) 153 10^3/uL (140-450); Red Blood Cells 2.42 10^6/uL (4.5-5.90)
[2024-02-14 07:15] LABS: Chloride 102 mmol/L (98-107); Potassium 3.3 mmol/L (3.5-5.1); Sodium 141 mmol/L (136-145)
[2024-02-14 07:16] LABS: Anion Gap 4 (5-15); Calcium 9.2 mg/dL (8.7-10.4); Carbon Dioxide 35 mmol/L (20-30)
[2024-02-14 07:21] LABS: BUN/Creatinine Ratio 16.1 (10.0-20.0); Blood Urea Nitrogen 19 mg/dL (9-23); Glucose 115 mg/dL (74-106)
[2024-02-14 07:22] LABS: Magnesium 1.9 mg/dL (1.6-2.6)
[2024-02-14 07:37] LABS: Basophils % (manual) 0 (0.0-2.0); Blast Cells 0; Metamyelocytes % 0; Promyelocytes % 0; Reactive Lymphocytes 0
[2024-02-14 08:42] LABS: Band Neutrophils % (manual) 2; Eosinophils % (manual) 2 (0-7); Lymphocytes % (manual) 18 (10.0-50.0); Monocytes % (manual) 13 (0-12); Myelocytes % 1
[2024-02-14 08:43] LABS: Anisocytosis Slight; Platelet Estimate Adequate
[2024-02-14 08:54] LABS: Base Excess 9.7 mmol/L (-2.0-3.0)
[2024-02-14] MEDS: POTASSIUM CHL 20MEQ/100ML 100 ML IV SCH (09:35)
[2024-02-14 09:36] LABS: Magnesium 1.9 mg/dL (1.6-2.6)
[2024-02-14 09:37] LABS: Albumin 2.3 g/dL (3.2-4.8); Phosphorus 3.8 mg/dL (2.4-5.1)
[2024-02-14] MEDS: CALCIUM GLUC 1,000mg/50ml-NS 50 ML IV SCH (12:46)
[2024-02-14] MEDS: methylPREDNISolone SOD SUCC 40 MG/ML VL IV ONE (14:19)
[2024-02-15] VITALS (106 sets, daily range): BP systolic 83–140; BP diastolic 39–76; PULSE 65–77; RESP 10–21; TEMP 97.2–98.1; O2SAT 89–100
[2024-02-15 04:02] LABS: Basophils # (auto) 0 10 ^3/uL (0-0.2); Basophils % (auto) 0.3 % (0.0-2.0); Eosinophils # (auto) 0.1 10 ^3/uL (0-0.8); Eosinophils % (auto) 0.6 % (0.0-7.0); Hematocrit 24.8 % (41.0-53.0); Hemoglobin 8.6 g/dL (13.5-17.5); Lymphocytes # (auto) 1.5 10 ^3/uL (0.4-5.4); Lymphocytes % (auto) 17.2 % (10.0-50.0); Mean Corpuscular Hemoglobin 33.7 pg (28.0-32.0); Mean Corpuscular Hgb Conc. 34.7 g/dL (32.0-36.0); Mean Corpuscular Volume 97.1 fL (80.0-100.0); Monocytes # (auto) 1.5 10 ^3/uL (0-1.3); Monocytes % (auto) 16.3 % (0.0-12.0); Neutrophils # (auto) 5.8 10 ^3/uL (1.6-8.6); Neutrophils % (auto) 65.6 % (37.0-80.0); Nucleated Red Blood Cells % 0.1 %; Platelet Count (auto) 172 10^3/uL (140-450); Red Blood Cells 2.56 10^6/uL (4.5-5.90); White Blood Cell 8.9 10^3/uL (4.4-10.8)
[2024-02-15 04:03] LABS: Red Cell Distribution Width 25.9 % (11.8-14.3)
[2024-02-15 04:16] LABS: Calcium 9.5 mg/dL (8.7-10.4); Chloride 100 mmol/L (98-107); Potassium 3.5 mmol/L (3.5-5.1); Sodium 138 mmol/L (136-145)
[2024-02-15 04:17] LABS: Anion Gap 6 (5-15); Carbon Dioxide 32 mmol/L (20-30)
[2024-02-15 04:22] LABS: BUN/Creatinine Ratio 15.4 (10.0-20.0); Blood Urea Nitrogen 19 mg/dL (9-23); Glucose 135 mg/dL (74-106)
[2024-02-15 04:23] LABS: Magnesium 1.9 mg/dL (1.6-2.6); Phenytoin (Dilantin) 14.9 ug/mL (10-20); Valproic Acid (Depakene) 57.9 ug/mL (50-100)
[2024-02-15 04:24] LABS: Phosphorus 4.3 mg/dL (2.4-5.1)
[2024-02-15] MEDS: PROPOFOL 100 ML IV SCH (04:52)
[2024-02-15 05:25] LABS: Anisocytosis Moderate; Platelet Estimate Adequate; Stomatocytes Moderate
[2024-02-15 06:30] LABS: Base Excess 7.3 mmol/L (-2.0-3.0)
[2024-02-15] MEDS: FUROSEMIDE 20 MG/2 ML VIAL IV SCH (09:50)
[2024-02-15] MEDS: methylPREDNISolone SOD SUCC 40 MG/ML VL IV SCH (09:51)
[2024-02-15] MEDS: LEVOTHYROXINE SODIUM 25 MCG TAB PO ONE (10:31)
[2024-02-15] MEDS: LEVOTHYROXINE SODIUM 25 MCG TAB PO SCH (11:15)
[2024-02-15] MEDS: ACETYLCYSTEINE 20%(200MG/ML) SOL 4ML NEB SCH (13:24)
[2024-02-15] MEDS: ENOXAPARIN SOD 60 MG/0.6 ML SYRINGE SC SCH (14:00)
[2024-02-15] MEDS: MEROPENEM 1GM IVPB 50 ML IV SCH (14:27)
[2024-02-16] VITALS (108 sets, daily range): BP systolic 89–147; BP diastolic 41–72; PULSE 66–79; RESP 11–20; TEMP 97.3–98.4; O2SAT 69–100
[2024-02-16 03:48] LABS: Hemoglobin 8.2 g/dL (13.5-17.5)
[2024-02-16 03:51] LABS: Hematocrit 24.1 % (41.0-53.0); Mean Corpuscular Hemoglobin 33.3 pg (28.0-32.0); Mean Corpuscular Hgb Conc. 34.2 g/dL (32.0-36.0); Mean Corpuscular Volume 97.6 fL (80.0-100.0); Platelet Count (auto) 177 10^3/uL (140-450); Red Blood Cells 2.47 10^6/uL (4.5-5.90); White Blood Cell 6.5 10^3/uL (4.4-10.8)
[2024-02-16 03:57] LABS: Chloride 101 mmol/L (98-107); Potassium 3.3 mmol/L (3.5-5.1); Sodium 139 mmol/L (136-145)
[2024-02-16 03:58] LABS: Anion Gap 5 (5-15); Calcium 9.3 mg/dL (8.7-10.4); Carbon Dioxide 33 mmol/L (20-30)
[2024-02-16 04:01] LABS: Red Cell Distribution Width 25.7 % (11.8-14.3)
[2024-02-16 04:03] LABS: Basophils % (manual) 0 (0.0-2.0); Blast Cells 0; Glucose 99 mg/dL (74-106); Promyelocytes % 0; Reactive Lymphocytes 0
[2024-02-16 04:04] LABS: BUN/Creatinine Ratio 16.9 (10.0-20.0); Blood Urea Nitrogen 21 mg/dL (9-23); Magnesium 1.9 mg/dL (1.6-2.6)
[2024-02-16 06:34] LABS: Band Neutrophils % (manual) 6; Eosinophils % (manual) 2 (0-7); Lymphocytes % (manual) 22 (10.0-50.0); Metamyelocytes % 3; Monocytes % (manual) 18 (0-12); Myelocytes % 3
[2024-02-16 06:35] LABS: Anisocytosis Moderate; Platelet Estimate Adequate; Stomatocytes Few
[2024-02-16] MEDS: POTASSIUM CHL 20MEQ/100ML 100 ML IV SCH (08:43)
[2024-02-17] VITALS (101 sets, daily range): BP systolic 84–121; BP diastolic 42–69; PULSE 63–91; RESP 11–24; TEMP 97.3–99.5; O2SAT 87–100
[2024-02-17 04:04] LABS: Anion Gap 5 (5-15); Carbon Dioxide 33 mmol/L (20-30); Chloride 102 mmol/L (98-107); Potassium 3.4 mmol/L (3.5-5.1); Sodium 140 mmol/L (136-145)
[2024-02-17 04:05] LABS: Calcium 9.5 mg/dL (8.7-10.4)
[2024-02-17 04:09] LABS: Glucose 83 mg/dL (74-106); Hemoglobin 7.8 g/dL (13.5-17.5)
[2024-02-17 04:10] LABS: BUN/Creatinine Ratio 15.6 (10.0-20.0); Blood Urea Nitrogen 19 mg/dL (9-23); Magnesium 1.9 mg/dL (1.6-2.6)
[2024-02-17 04:11] LABS: Mean Corpuscular Hemoglobin 33.7 pg (28.0-32.0); Mean Corpuscular Hgb Conc. 34.1 g/dL (32.0-36.0); Mean Corpuscular Volume 98.8 fL (80.0-100.0); Platelet Count (auto) 185 10^3/uL (140-450); Red Blood Cells 2.33 10^6/uL (4.5-5.90); White Blood Cell 6.3 10^3/uL (4.4-10.8)
[2024-02-17 04:12] LABS: Phosphorus 4.5 mg/dL (2.4-5.1)
[2024-02-17 04:27] LABS: Red Cell Distribution Width 26.2 % (11.8-14.3)
[2024-02-17 04:29] LABS: Band Neutrophils % (manual) 0; Basophils % (manual) 0 (0.0-2.0); Blast Cells 0; Metamyelocytes % 0; Myelocytes % 0; Promyelocytes % 0; Reactive Lymphocytes 0
[2024-02-17] MEDS: POTASSIUM CHL 20MEQ/100ML 100 ML IV SCH (08:10)
[2024-02-17 08:40] LABS: Base Excess 6.5 mmol/L (-2.0-3.0)
[2024-02-17] MEDS: MAGNESIUM SULFATE 1GM/100ML 100 ML IV ONE (09:44)
[2024-02-17 11:10] LABS: Eosinophils % (manual) 3 (0-7); Lymphocytes % (manual) 26 (10.0-50.0); Monocytes % (manual) 18 (0-12); Platelet Estimate Adequate
[2024-02-18] VITALS (106 sets, daily range): BP systolic 90–181; BP diastolic 26–93; PULSE 70–106; RESP 10–25; TEMP 98.8–100.2; O2SAT 13–100
[2024-02-18 04:48] LABS: Hematocrit 21.2 % (41.0-53.0); Hemoglobin 7.3 g/dL (13.5-17.5); Mean Corpuscular Hemoglobin 33.8 pg (28.0-32.0); Mean Corpuscular Hgb Conc. 34.2 g/dL (32.0-36.0); Mean Corpuscular Volume 98.9 fL (80.0-100.0); Platelet Count (auto) 216 10^3/uL (140-450); Red Blood Cells 2.15 10^6/uL (4.5-5.90); White Blood Cell 6.6 10^3/uL (4.4-10.8)
[2024-02-18 04:51] LABS: Basophils % (manual) 0 (0.0-2.0); Blast Cells 0; Metamyelocytes % 0; Myelocytes % 0; Promyelocytes % 0; Reactive Lymphocytes 0
[2024-02-18 04:52] LABS: Anion Gap 4 (5-15); Carbon Dioxide 35 mmol/L (20-30); Chloride 101 mmol/L (98-107); Potassium 3.6 mmol/L (3.5-5.1); Sodium 140 mmol/L (136-145)
[2024-02-18 04:53] LABS: Calcium 9.6 mg/dL (8.7-10.4)
[2024-02-18 04:57] LABS: Glucose 116 mg/dL (74-106)
[2024-02-18 04:58] LABS: BUN/Creatinine Ratio 17.2 (10.0-20.0); Blood Urea Nitrogen 20 mg/dL (9-23); Magnesium 2.1 mg/dL (1.6-2.6)
[2024-02-18 06:53] LABS: Anisocytosis Moderate; Band Neutrophils % (manual) 1; Eosinophils % (manual) 3 (0-7); Lymphocytes % (manual) 27 (10.0-50.0); Monocytes % (manual) 18 (0-12); Platelet Estimate Adequate
[2024-02-18 06:54] LABS: Stomatocytes Moderate
[2024-02-18 09:57] LABS: Base Excess 9.6 mmol/L (-2.0-3.0)
[2024-02-18] MEDS: FUROSEMIDE 40 MG/4 ML VIAL IV SCH (10:20)
[2024-02-18] MEDS: PHENYTOIN SODIUM 50 MG/ML 2ML VIAL IV SCH (14:13)
[2024-02-18] MEDS: acetaZOLAMIDE SODIUM 500 MG VL IV ONE (16:33)
[2024-02-19] VITALS (111 sets, daily range): BP systolic 97–153; BP diastolic 39–75; PULSE 75–91; RESP 12–29; TEMP 98.1–98.8; O2SAT 93–100
[2024-02-19 04:26] LABS: Hematocrit 19.3 % (41.0-53.0)
[2024-02-19 04:32] LABS: Mean Corpuscular Hemoglobin 34.4 pg (28.0-32.0); Mean Corpuscular Hgb Conc. 33.9 g/dL (32.0-36.0); Mean Corpuscular Volume 101.3 fL (80.0-100.0); Platelet Count (auto) 199 10^3/uL (140-450); White Blood Cell 7.9 10^3/uL (4.4-10.8)
[2024-02-19 04:42] LABS: Albumin 2.4 g/dL (3.2-4.8); Alkaline Phosphatase 66 U/L (46-116); Anion Gap 3 (5-15); Aspartate Aminotransferase 30 U/L (13-40); Blood Urea Nitrogen 23 mg/dL (9-23); Calcium 9.7 mg/dL (8.7-10.4); Carbon Dioxide 35 mmol/L (20-30); Chloride 101 mmol/L (98-107); Glucose 105 mg/dL (74-106); Magnesium 2.2 mg/dL (1.6-2.6); Potassium 3.4 mmol/L (3.5-5.1); Sodium 139 mmol/L (136-145)
[2024-02-19 04:43] LABS: Bilirubin, Total < 0.2 mg/dL (0.2-1.0); Phosphorus 4.2 mg/dL (2.4-5.1); Total Protein 5.9 g/dL (5.7-8.2)
[2024-02-19 05:17] LABS: Alanine Aminotransferase < 9 U/L (7-40)
[2024-02-19 05:21] LABS: Hemoglobin 6.6 g/dL (13.5-17.5); Red Cell Distribution Width 26.4 % (11.8-14.3)
[2024-02-19 05:22] LABS: Band Neutrophils % (manual) 0
[2024-02-19 05:23] LABS: Basophils % (manual) 0 (0.0-2.0); Blast Cells 0; Metamyelocytes % 0; Myelocytes % 0; Promyelocytes % 0
[2024-02-19 10:51] LABS: Anisocytosis Moderate; Eosinophils % (manual) 3 (0-7); Lymphocytes % (manual) 20 (10.0-50.0); Macrocytosis Slight; Monocytes % (manual) 9 (0-12); Platelet Estimate Adequate; Reactive Lymphocytes 1
[2024-02-19] MEDS: acetaZOLAMIDE SODIUM 500 MG VL IV SCH (10:55)
[2024-02-19] MEDS: POTASSIUM CHL 20MEQ/100ML 100 ML IV SCH (10:57)
[2024-02-20] VITALS (108 sets, daily range): BP systolic 74–114; BP diastolic 37–68; PULSE 78–99; RESP 12–26; TEMP 98.3–98.8; O2SAT 94–100
[2024-02-20 04:03] LABS: Eosinophils # (auto) 0.3 10 ^3/uL (0-0.8); Hemoglobin 7.8 g/dL (13.5-17.5); Neutrophils # (auto) 6.8 10 ^3/uL (1.6-8.6); White Blood Cell 10.5 10^3/uL (4.4-10.8)
[2024-02-20 04:06] LABS: Basophils # (auto) 0 10 ^3/uL (0-0.2); Basophils % (auto) 0.3 % (0.0-2.0); Eosinophils % (auto) 2.5 % (0.0-7.0); Hematocrit 22.3 % (41.0-53.0); Lymphocytes # (auto) 1.5 10 ^3/uL (0.4-5.4); Lymphocytes % (auto) 14.5 % (10.0-50.0); Mean Corpuscular Hemoglobin 34.1 pg (28.0-32.0); Mean Corpuscular Hgb Conc. 35.1 g/dL (32.0-36.0); Mean Corpuscular Volume 97.1 fL (80.0-100.0); Monocytes # (auto) 1.9 10 ^3/uL (0-1.3); Monocytes % (auto) 17.8 % (0.0-12.0); Neutrophils % (auto) 64.9 % (37.0-80.0); Nucleated Red Blood Cells % 0.1 %; Platelet Count (auto) 235 10^3/uL (140-450); Red Cell Distribution Width 23.2 % (11.8-14.3)
[2024-02-20 04:23] LABS: Albumin 2.4 g/dL (3.2-4.8); Alkaline Phosphatase 71 U/L (46-116); Anion Gap 8 (5-15); Aspartate Aminotransferase 40 U/L (13-40); BUN/Creatinine Ratio 24.3 (10.0-20.0); Blood Urea Nitrogen 27 mg/dL (9-23); Calcium 10.1 mg/dL (8.7-10.4); Carbon Dioxide 30 mmol/L (20-30); Chloride 102 mmol/L (98-107); Glucose 108 mg/dL (74-106); Magnesium 2.1 mg/dL (1.6-2.6); Potassium 3.6 mmol/L (3.5-5.1); Sodium 140 mmol/L (136-145)
[2024-02-20 04:24] LABS: Bilirubin, Total 0.2 mg/dL (0.2-1.0); Total Protein 5.8 g/dL (5.7-8.2)
[2024-02-20 04:26] LABS: Alanine Aminotransferase < 9 U/L (7-40)
[2024-02-20] MEDS: ACETYLCYSTEINE 20%(200MG/ML) SOL 4ML NEB SCH (06:27)
[2024-02-20] MEDS: fentaNYL Drip 2500mCg/250mlNS 250 ML IV SCH (15:00)
[2024-02-21] VITALS (105 sets, daily range): BP systolic 81–135; BP diastolic 40–256; PULSE 80–113; RESP 12–27; TEMP 98.6–100.2; O2SAT 87–100
[2024-02-21 04:00] LABS: Basophils # (auto) 0 10 ^3/uL (0-0.2); Eosinophils # (auto) 0.2 10 ^3/uL (0-0.8); Hematocrit 21.1 % (41.0-53.0); Lymphocytes # (auto) 1.3 10 ^3/uL (0.4-5.4); Monocytes # (auto) 1.6 10 ^3/uL (0-1.3); Red Blood Cells 2.15 10^6/uL (4.5-5.90)
[2024-02-21 04:03] LABS: Basophils % (auto) 0.4 % (0.0-2.0); Eosinophils % (auto) 2.1 % (0.0-7.0); Hemoglobin 7.2 g/dL (13.5-17.5); Lymphocytes % (auto) 12.6 % (10.0-50.0); Mean Corpuscular Hemoglobin 33.6 pg (28.0-32.0); Mean Corpuscular Hgb Conc. 34.4 g/dL (32.0-36.0); Mean Corpuscular Volume 97.9 fL (80.0-100.0); Monocytes % (auto) 15.1 % (0.0-12.0); Neutrophils # (auto) 7.2 10 ^3/uL (1.6-8.6); Neutrophils % (auto) 69.8 % (37.0-80.0); Nucleated Red Blood Cells % 0.2 %; Platelet Count (auto) 275 10^3/uL (140-450); Red Cell Distribution Width 23.7 % (11.8-14.3); White Blood Cell 10.3 10^3/uL (4.4-10.8)
[2024-02-21 04:05] LABS: Chloride 102 mmol/L (98-107); Potassium 3.6 mmol/L (3.5-5.1); Sodium 140 mmol/L (136-145)
[2024-02-21 04:06] LABS: Anion Gap 9 (5-15); Calcium 10.5 mg/dL (8.7-10.4); Carbon Dioxide 29 mmol/L (20-30)
[2024-02-21 04:11] LABS: Glucose 96 mg/dL (74-106)
[2024-02-21 04:12] LABS: BUN/Creatinine Ratio 26.2 (10.0-20.0); Blood Urea Nitrogen 28 mg/dL (9-23); Magnesium 2.1 mg/dL (1.6-2.6)
[2024-02-21] MEDS ORDERED: VASOPRESSIN 20 UNITS in SODIUM CHL 0.9% 99 ML IV SCH (08:45)
[2024-02-22] VITALS (68 sets, daily range): BP systolic 90–128; BP diastolic 30–81; PULSE 89–140; RESP 14–25; TEMP 99.2–100; O2SAT 80–100
[2024-02-22 03:57] LABS: Chloride 104 mmol/L (98-107); Potassium 3.3 mmol/L (3.5-5.1); Sodium 141 mmol/L (136-145)
[2024-02-22 03:58] LABS: Anion Gap 6 (5-15); Calcium 10.5 mg/dL (8.7-10.4); Carbon Dioxide 31 mmol/L (20-30)
[2024-02-22 04:02] LABS: Basophils # (auto) 0 10 ^3/uL (0-0.2); Basophils % (auto) 0.4 % (0.0-2.0); Eosinophils # (auto) 0.2 10 ^3/uL (0-0.8); Eosinophils % (auto) 1.6 % (0.0-7.0); Hematocrit 22.6 % (41.0-53.0); Hemoglobin 7.6 g/dL (13.5-17.5); Lymphocytes # (auto) 1.7 10 ^3/uL (0.4-5.4); Lymphocytes % (auto) 13.5 % (10.0-50.0); Mean Corpuscular Hemoglobin 33.5 pg (28.0-32.0); Mean Corpuscular Hgb Conc. 33.8 g/dL (32.0-36.0); Mean Corpuscular Volume 99.2 fL (80.0-100.0); Monocytes # (auto) 1.7 10 ^3/uL (0-1.3); Monocytes % (auto) 14.1 % (0.0-12.0); Neutrophils # (auto) 8.7 10 ^3/uL (1.6-8.6); Neutrophils % (auto) 70.4 % (37.0-80.0); Nucleated Red Blood Cells % 0.1 %; Platelet Count (auto) 318 10^3/uL (140-450); Red Blood Cells 2.28 10^6/uL (4.5-5.90); White Blood Cell 12.4 10^3/uL (4.4-10.8)
[2024-02-22 04:03] LABS: BUN/Creatinine Ratio 26.8 (10.0-20.0); Blood Urea Nitrogen 26 mg/dL (9-23); Glucose 108 mg/dL (74-106)
[2024-02-22 04:05] LABS: Phosphorus 3.6 mg/dL (2.4-5.1)
[2024-02-22] MEDS: POTASSIUM CHL 20MEQ/100ML 100 ML IV SCH (09:39)
== END 2024-02-22 18:50 | disposition hospice, home (50) | DRG 4 ==
LOC: ER 13:22 → EDBD 13:22 → TELE 16:14 → EDBD 16:14 → ICU WEST 12-25 15:47 → DOU IN ICU 01-08 21:30 → ICU WEST 01-09 04:45 → DOU IN ICU 01-22 18:44 → TELE-CENTR 01-27 17:13 → ICU WEST 01-28 06:10
PROVIDERS: ADMIT Internal Medicine Pulmonary Disease; ATTEND Emergency Medicine
PROC: 5A1955Z Respiratory Ventilation, Greater than 96 Consecutive Hours (ICD-10-PCS; principal; 2023-12-24)
PROC: 0BH17EZ Insertion of Endotracheal Airway into Trachea, Via Natural or Artificial Opening (ICD-10-PCS; 2023-12-24)
PROC: 0B9B8ZZ Drainage of Left Lower Lobe Bronchus, Via Natural or Artificial Opening Endoscopic (ICD-10-PCS; 2023-12-29)
PROC: 0B968ZZ Drainage of Right Lower Lobe Bronchus, Via Natural or Artificial Opening Endoscopic (ICD-10-PCS; 2023-12-29)
PROC: 02HV33Z Insertion of Infusion Device into Superior Vena Cava, Percutaneous Approach (ICD-10-PCS; 2023-12-29)
PROC: B548ZZA Ultrasonography of Superior Vena Cava, Guidance (ICD-10-PCS; 2023-12-29)
PROC: 30233N1 Transfusion of Nonautologous Red Blood Cells into Peripheral Vein, Percutaneous Approach (ICD-10-PCS; 2023-12-30)
PROC: 02H633Z Insertion of Infusion Device into Right Atrium, Percutaneous Approach (ICD-10-PCS; 2024-01-04)
PROC: 5A09357 Assistance with Respiratory Ventilation, Less than 24 Consecutive Hours, Continuous Positive Airway Pressure (ICD-10-PCS; 2024-01-05)
PROC: 5A09357 Assistance with Respiratory Ventilation, Less than 24 Consecutive Hours, Continuous Positive Airway Pressure (ICD-10-PCS; 2024-01-06)
PROC: 5A09357 Assistance with Respiratory Ventilation, Less than 24 Consecutive Hours, Continuous Positive Airway Pressure (ICD-10-PCS; 2024-01-07)
PROC: 5A09357 Assistance with Respiratory Ventilation, Less than 24 Consecutive Hours, Continuous Positive Airway Pressure (ICD-10-PCS; 2024-01-08)
PROC: 5A09357 Assistance with Respiratory Ventilation, Less than 24 Consecutive Hours, Continuous Positive Airway Pressure (ICD-10-PCS; 2024-01-09)
PROC: 0B968ZZ Drainage of Right Lower Lobe Bronchus, Via Natural or Artificial Opening Endoscopic (ICD-10-PCS; 2024-01-18)
PROC: 5A1955Z Respiratory Ventilation, Greater than 96 Consecutive Hours (ICD-10-PCS; 2024-01-28)
PROC: 02HV33Z Insertion of Infusion Device into Superior Vena Cava, Percutaneous Approach (ICD-10-PCS; 2024-01-28)
PROC: 0BH17EZ Insertion of Endotracheal Airway into Trachea, Via Natural or Artificial Opening (ICD-10-PCS; 2024-01-28)
PROC: 0DH63UZ Insertion of Feeding Device into Stomach, Percutaneous Approach (ICD-10-PCS; 2024-02-05)
PROC: 0B110F4 Bypass Trachea to Cutaneous with Tracheostomy Device, Open Approach (ICD-10-PCS; 2024-02-05)
PROC: 0B9B8ZZ Drainage of Left Lower Lobe Bronchus, Via Natural or Artificial Opening Endoscopic (ICD-10-PCS; 2024-02-12)
PROC: 0B968ZZ Drainage of Right Lower Lobe Bronchus, Via Natural or Artificial Opening Endoscopic (ICD-10-PCS; 2024-02-12)
DX: A41.9 Sepsis, unspecified organism (principal); J69.0 Pneumonitis due to inhalation of food and vomit; J96.21 Acute and chronic respiratory failure with hypoxia; J96.22 Acute and chronic respiratory failure with hypercapnia; R65.21 Severe sepsis with septic shock; I50.33 Acute on chronic diastolic (congestive) heart failure; N17.0 Acute kidney failure with tubular necrosis; G93.41 Metabolic encephalopathy; J15.9 Unspecified bacterial pneumonia; J44.1 Chronic obstructive pulmonary disease with (acute) exacerbation; I69.354 Hemiplegia and hemiparesis following cerebral infarction affecting left non-dominant side; A04.72 Enterocolitis due to Clostridium difficile, not specified as recurrent; I82.B12 Acute embolism and thrombosis of left subclavian vein; I13.0 Hypertensive heart and chronic kidney disease with heart failure and stage 1 through stage 4 chronic kidney disease, or unspecified chronic kidney disease; E46 Unspecified protein-calorie malnutrition; Z99.11 Dependence on respirator [ventilator] status; G40.A19 Absence epileptic syndrome, intractable, without status epilepticus; D64.9 Anemia, unspecified; E11.65 Type 2 diabetes mellitus with hyperglycemia; E78.5 Hyperlipidemia, unspecified; E83.51 Hypocalcemia; E87.6 Hypokalemia; I48.91 Unspecified atrial fibrillation; N18.2 Chronic kidney disease, stage 2 (mild); E11.22 Type 2 diabetes mellitus with diabetic chronic kidney disease; E66.9 Obesity, unspecified; F41.9 Anxiety disorder, unspecified; X58.XXXA Exposure to other specified factors, initial encounter; E86.0 Dehydration; D69.6 Thrombocytopenia, unspecified; E83.52 Hypercalcemia; G40.A09 Absence epileptic syndrome, not intractable, without status epilepticus; S20.212A Contusion of left front wall of thorax, initial encounter; Z20.822 Contact with and (suspected) exposure to COVID-19; T42.6X5A Adverse effect of other antiepileptic and sedative-hypnotic drugs, initial encounter; S30.1XXA Contusion of abdominal wall, initial encounter; G40.409 Other generalized epilepsy and epileptic syndromes, not intractable, without status epilepticus; I25.10 Atherosclerotic heart disease of native coronary artery without angina pectoris; Z68.32 Body mass index [BMI] 32.0-32.9, adult; Z82.49 Family history of ischemic heart disease and other diseases of the circulatory system; Z83.3 Family history of diabetes mellitus; Z79.82 Long term (current) use of aspirin; Z79.899 Other long term (current) drug therapy; Y93.89 Activity, other specified; Y92.89 Other specified places as the place of occurrence of the external cause; Y99.8 Other external cause status; Z99.81 Dependence on supplemental oxygen; Z82.0 Family history of epilepsy and other diseases of the nervous system
CPT/HCPCS: 31500; 31645; 36415; 36569; 36600; 70450; 71045; 71111; 71250; 71260; 71275; 74018; 74177; 76536; 76604; 76700; 76937; 80048; 80053; 80076; 80164; 80185; 80202; 81001; 82040; 82270; 82306; 82310; 82330; 82542; 82570; 82607; 82746; 82805; 82962; 83036; 83540; 83550; 83605; 83735; 83880; 83970; 83986; 84100; 84132; 84156; 84295; 84300; 84439; 84443; 84478; 84481; 84484; 85007; 85014; 85018; 85025; 85027; 85048; 85362; 85384; 85610; 85730; 86850; 86900; 86901; 86920; 87040; 87070; 87077; 87081; 87086; 87186; 87205; 87426; 87493; 87804; 92507; 92610; 93005; 93306; 93970; 93971; 94002; 94003; 94640; 94644; 94660; 94667; 94668; 95819; 97110; 97163; 97530; 99291; A4605; G0378; J0171; J0330; J0636; J1100; J1815; J1885; J1956; J2001; J2185; J2248; J2250; J2470; J2543; J2704; J3370; J3480; J3490; J7060

== ENCOUNTER 2024-02-22 20:54 | Inpatient (IN) | payer OTHER, MEDICAID ==
[~2024-02-22] VITALS: Ht 180.3 cm; Wt 84.1 kg
[~2024-02-22 20:54] MED LIST changes: -ALBU2TAB11 INH; +ALBUAER3 IN; -CALC0.25 PO; -DOX100T PO; +METF-370 PO; -POM PO; -PRED1PAK9 PO; -TIOT17SP IN
[2024-02-22 22:22] VITALS: BP 130/75; PULSE 118; RESP 13; O2SAT 92
[2024-02-22 23:30] VITALS: O2SAT 100
[2024-02-22 23:58] VITALS: BP 123/74; PULSE 103; RESP 12; O2SAT 100
[2024-02-23] VITALS (22 sets, daily range): BP systolic 99–132; BP diastolic 60–93; PULSE 96–117; RESP 12–22; TEMP 99–99.5; O2SAT 95–100
[2024-02-23 00:49] LABS: Base Excess 4.9 mmol/L (-2.0-3.0)
[2024-02-23] MEDS: DIVALPROEX SODIUM 750 MG PO SCH (11:00)
[2024-02-23] MEDS ORDERED: PATIENTS OWN MEDICATION (Levothyroxine Sodium 125 MCG) PO SCH (11:00)
[2024-02-23] MEDS ORDERED: PATIENTS OWN MEDICATION (Nifedipine (Nifedipine Er) 60 MG) PO SCH (11:00)
[2024-02-23] MEDS: hydroCHLOROthiazide 25 MG TAB PO SCH (11:36)
[2024-02-23] MEDS: SPIRONOLACTONE 25 MG TAB PO SCH (11:36)
[2024-02-23] MEDS: POTASSIUM CHL 10 Meq TABLET PO SCH (11:37)
[2024-02-23] MEDS: IPRATROPIUM BROM 0.5 MG/2.5ML INH SOL NEB SCH (13:53)
[2024-02-23] MEDS: ACETYLCYSTEINE 20%(200MG/ML) SOL 4ML NEB SCH (13:53)
[2024-02-23] MEDS: ALBUTEROL SULF 2.5 MG/0.5ML(0.5%) NEB SOLN NEB SCH (13:53)
[2024-02-23] MEDS: LORazepam 2MG/ML-1ML VIAL IM ONE (14:45)
[2024-02-23] MEDS: LORazepam 2MG/ML-1ML VIAL ONE (14:45)
[2024-02-23] MEDS: LORazepam 2MG/ML-1ML VIAL IV PRN (18:25)
[2024-02-23] MEDS: levETIRAcetam 500 MG TAB PO SCH (22:00)
[2024-02-24] VITALS (63 sets, daily range): BP systolic 0–143; BP diastolic 0–71; PULSE 0–127; RESP 0–29; TEMP 97–98.1; O2SAT 11–100
[2024-02-24] MEDS: LEVOTHYROXINE SODIUM 100 MCG TAB PO SCH (06:35)
[2024-02-24] MEDS: LEVOTHYROXINE SODIUM 25 MCG TAB PO SCH (06:35)
[2024-02-24] MEDS ORDERED: DIVALPROEX SODIUM 250 MG PO SCH (09:30)
[2024-02-24] MEDS: PHENYTOIN SODIUM 100 MG CAP PO ONE (09:30)
[2024-02-24] MEDS ORDERED: ENOXAPARIN SOD 40 MG/0.4 ML SYRINGE SC SCH (10:00)
[2024-02-24] MEDS ORDERED: NIFEdipine ER 30 MG TAB PO SCH (10:00)
[2024-02-24 11:18] LABS: Alanine Aminotransferase 13 U/L (7-40); Albumin 2.6 g/dL (3.2-4.8); Alkaline Phosphatase 86 U/L (46-116); Anion Gap 8 (5-15); Aspartate Aminotransferase 56 U/L (13-40); BUN/Creatinine Ratio 20.2 (10.0-20.0); Bilirubin, Total 0.3 mg/dL (0.2-1.0); Blood Urea Nitrogen 18 mg/dL (9-23); Calcium 10.1 mg/dL (8.7-10.4); Carbon Dioxide 27 mmol/L (20-30); Chloride 107 mmol/L (98-107); Cholesterol 168 mg/dL (< 200); Glucose 68 mg/dL (74-106); HDL Cholesterol 58 mg/dL (40-59); LDL Cholesterol 81 mg/dL (< 100); Phosphorus 3.5 mg/dL (2.4-5.1); Potassium 3.1 mmol/L (3.5-5.1); Sodium 142 mmol/L (136-145); Total Protein 6.1 g/dL (5.7-8.2); Triglycerides 149 mg/dL (< 150)
[2024-02-24 11:25] LABS: INR 1.05 (0.9-1.15); Partial Thromboplastin Time 27.8 SEC (24.5-34.5); Prothrombin Time 11.1 sec (9.3-11.8)
[2024-02-24 11:35] LABS: Basophils # (auto) 0 10 ^3/uL (0-0.2); Eosinophils # (auto) 0.1 10 ^3/uL (0-0.8); Eosinophils % (auto) 1.3 % (0.0-7.0); Mean Corpuscular Hemoglobin 34.9 pg (28.0-32.0); Neutrophils # (auto) 6.6 10 ^3/uL (1.6-8.6)
[2024-02-24 11:37] LABS: Basophils % (auto) 0.5 % (0.0-2.0); Hematocrit 21.8 % (41.0-53.0); Hemoglobin 7.4 g/dL (13.5-17.5); Lymphocytes # (auto) 1.8 10 ^3/uL (0.4-5.4); Lymphocytes % (auto) 18.9 % (10.0-50.0); Mean Corpuscular Hgb Conc. 33.9 g/dL (32.0-36.0); Mean Corpuscular Volume 102.9 fL (80.0-100.0); Monocytes # (auto) 0.9 10 ^3/uL (0-1.3); Monocytes % (auto) 9.6 % (0.0-12.0); Neutrophils % (auto) 69.7 % (37.0-80.0); Platelet Count (auto) 354 10^3/uL (140-450); Red Blood Cells 2.12 10^6/uL (4.5-5.90); White Blood Cell 9.5 10^3/uL (4.4-10.8)
[2024-02-24 11:44] LABS: Phenytoin (Dilantin) 8.4 ug/mL (10-20); Valproic Acid (Depakene) < 3.0 ug/mL (50-100)
[2024-02-24 11:48] LABS: Red Cell Distribution Width 24.7 % (11.8-14.3)
[2024-02-24] MEDS ORDERED: PHENYTOIN SODIUM 100 MG CAP PO SCH (14:00)
[2024-02-24] MEDS: MORPHINE SULFATE INJ 2 MG/ml SYRG IV PRN (14:52)
[2024-02-24] MEDS: LORazepam 2MG/ML-1ML VIAL IV PRN (14:53)
== END 2024-02-24 20:50 | DRG 871 ==
LOC: EDBD 20:54 → ER 20:54 → EDUNIT# 20:54 → OVERFLOW 02-23 10:51 → DOU IN ICU 02-23 15:02
PROVIDERS: ADMIT Internal Medicine Pulmonary Disease; ATTEND Anesthesiology
PROC: 05HA33Z Insertion of Infusion Device into Left Brachial Vein, Percutaneous Approach (ICD-10-PCS; principal; 2024-02-23)
PROC: B54NZZA Ultrasonography of Left Upper Extremity Veins, Guidance (ICD-10-PCS; 2024-02-23)
PROC: 5A1935Z Respiratory Ventilation, Less than 24 Consecutive Hours (ICD-10-PCS; 2024-02-23)
DX: A41.9 Sepsis, unspecified organism (principal); G93.41 Metabolic encephalopathy; J96.21 Acute and chronic respiratory failure with hypoxia; J15.69 Pneumonia due to other Gram-negative bacteria; J15.9 Unspecified bacterial pneumonia; J96.22 Acute and chronic respiratory failure with hypercapnia; J69.0 Pneumonitis due to inhalation of food and vomit; I82.B12 Acute embolism and thrombosis of left subclavian vein; J44.0 Chronic obstructive pulmonary disease with (acute) lower respiratory infection; I50.32 Chronic diastolic (congestive) heart failure; E11.9 Type 2 diabetes mellitus without complications; I11.0 Hypertensive heart disease with heart failure; R56.9 Unspecified convulsions; I48.0 Paroxysmal atrial fibrillation; E83.51 Hypocalcemia; E78.5 Hyperlipidemia, unspecified; D64.9 Anemia, unspecified; D69.6 Thrombocytopenia, unspecified; E87.6 Hypokalemia; E03.9 Hypothyroidism, unspecified; Z66 Do not resuscitate; Z86.73 Personal history of transient ischemic attack (TIA), and cerebral infarction without residual deficits; Z93.0 Tracheostomy status; Z93.1 Gastrostomy status; Z51.5 Encounter for palliative care; Z79.01 Long term (current) use of anticoagulants
CPT/HCPCS: 36415; 36600; 80053; 80061; 80164; 80185; 82306; 82607; 82805; 82962; 83036; 83605; 83735; 84100; 84443; 85025; 85610; 85730; 87070; 87081; 87205; 94002; 94003; 94640; G0378